=== PATIENT | female | born 1935 | race Caucasian/White ===

== ENCOUNTER → 2017-05-05 14:42 | Outpatient (CLI) | payer MEDICARE, OTHER, SELFPAY ==
[2017-05-05 15:58] LABS: Vitamin D,25 Hydroxy 28.8 ng/mL (29.95-100.01)
== END ==
PROVIDERS: Family Provider Nurse Practitioner; PCP Nurse Practitioner; Visit Provider Nurse Practitioner
DX: M85.80 Other specified disorders of bone density and structure, unspecified site (principal)
CPT/HCPCS: 36415; 82306

== ENCOUNTER → 2017-05-19 15:34 | Outpatient (CLI) | payer MEDICARE, OTHER, SELFPAY ==
[2017-05-19 17:14] LABS: Absolute Lymphocyte Count 1.41 X10^3/ul (0.83-4.51); Absolute Neutrophil Count 3.5 X10^3/uL (2.0-7.7); Basophil# 0.03 X10^3/uL; Basophil% 0.5 % (0-1); Eosinophil# 0.25 X10^3/uL; Eosinophils% 4.5 % (0-5); Hematocrit 40.5 % (37-47); Hemoglobin 12.8 g/dl (12.0-15.0); Lymphocyte # 1.41 X10^3/ul (4.0); Lymphocyte % 25.4 % (19-41); Mean Corp Hgb Conc 31.6 g/gl (32-36); Mean Corpuscular Hgb 30.2 pg (27.0-32.0); Mean Corpuscular Volume 95.5 fL (81-99); Mean Platelet Vol. 9.7 fl (6.2-12.0); Monocyte# 0.37 X10^3/uL; Monocyte% 6.7 % (0-10); Neutrophil # 3.48 X10^3/uL (2.7-7.7); Neutrophil % 62.7 % (47-70); Platelet Count 248 K/mm3 (150-450); RBC Distribution Width CV 13.3 % (11.6-14.6); RBC Distribution Width SD 46.1 fl (35.1-43.9); Red Blood Count 4.24 M/mm3 (4.2-5.4); White Blood Count 5.6 K/mm3 (4.4-11.0)
[2017-05-19 17:17] LABS: POSITIVE COUNT NO; POSITIVE DIFFERENTIAL NO; POSITIVE MORPHOLOGY NO
[2017-05-19 17:37] LABS: T4 Free Direct 1.31 ng/dL (0.76-1.46); Thyroid Stim Hormone (TSH) 2.03 uIU/mL (0.358-3.74)
[2017-05-19 17:43] LABS: BNP,B-Type NATRIURETIC PEPTIDE 254.2 pg/mL (0-100)
== END ==
PROVIDERS: Family Provider Nurse Practitioner; PCP Nurse Practitioner; Visit Provider Nurse Practitioner Family
DX: I10 Essential (primary) hypertension (principal); R06.02 Shortness of breath; R06.09 Other forms of dyspnea; I38 Endocarditis, valve unspecified; I42.8 Other cardiomyopathies; R53.83 Other fatigue
CPT/HCPCS: 36415; 83880; 84439; 84443; 85025

== ENCOUNTER → 2017-06-05 13:54 | Outpatient (CLI) | payer MEDICARE, OTHER, SELFPAY ==
--- NOTE | 2017-06-05 13:55 | ECHOD_ITS ---
Reason For Study: DYSPNEA/SOB Procedure This was a 2D Doppler, Color Flow transthoracic echocardiogram. The exam was of adequate technical quality. Exam performed in department. Left Ventricle Normal LV size. Left ventricular systolic function is normal. The estimated ejection fraction is 55 %. Septal motion consistent with IVCD. Unable to assess diastolic dysfunction. No regional wall motion abnormalities noted. Right Ventricle Normal RV size. Normal systolic function. Atria The left atrium is severely enlarged. The right atrium is severely enlarged. No doppler evidence for ASD. Mitral Valve There is severe mitral annular calcification. Extension of the mitral annular calcification onto the posterior mitral valve leaflet. Mild (1+) mitral valve insufficiency. Tricuspid Valve Normal tricuspid valve. Moderately severe (3+) tricuspid valve insufficiency. Right ventricular systolic pressure estimated to be 53 mmHg. Aortic Valve Trisinus/trileaflet aortic valve. Mild focal aortic valve thickening. Mild focal aortic valve calcification. Pulmonic Valve The pulmonic valve is not well visualized. Great Vessels Normal sized aortic root. Calcified aortic root. Pericardium/Pleural No pericardial effusion. MMode/2D Measurements & Calculations LVIDd: 4.2 cm IVSd: 0.96 cm Ao root diam: 3.1 cm LVIDs: 2.9 cm LVPWd: 1.2 cm RVDd: 3.4 cm FS: 30.3 % LAV(MOD-bp): 112.2 ml EDV(MOD-sp4): 51.5 ml SV(MOD-sp4): 28.4 ml LAV(MOD-bp) Indexed: 65.3 ml/m2 ESV(MOD-sp4): 23.1 ml LAV(MOD-sp2): 106.8 ml EF(MOD-sp4): 55.2 % LAV(MOD-sp4): 112.3 ml LA A4 area: 32.8 cm2 RA A4 area: 30.0 cm2 Doppler Measurements & Calculations MV E max jamie: 147.4 cm/sec Ao V2 max: 134.5 cm/sec LV V1 max: 102.1 cm/sec Ao max P.3 mmHg LV V1 max P.2 mmHg PA V2 max: 84.8 cm/sec TR max jamie: 354.7 cm/sec TR max P.3 mmHg Interpretation Summary Left ventricular systolic function is normal. The estimated ejection fraction is 55 %. Septal motion consistent with IVCD. The left atrium is severely enlarged. The right atrium is severely enlarged. There is severe mitral annular calcification. Extension of the mitral annular calcification onto the posterior mitral valve leaflet. Mild (1+) mitral valve insufficiency. Moderately severe (3+) tricuspid valve insufficiency. Mild focal aortic valve thickening. Mild focal aortic valve calcification. Calcified aortic root. Right ventricular systolic pressure estimated to be 53 mmHg. Unable to assess diastolic dysfunction. Ordering Physician: Binu Callejas/Joe Gunderson Referring Physician: KALIE GEORGES Performed By: Johanna Hardin RDCS
== END ==
PROVIDERS: Family Provider Nurse Practitioner; PCP Nurse Practitioner; Visit Provider Nurse Practitioner Family
DX: I38 Endocarditis, valve unspecified (principal); I42.8 Other cardiomyopathies; R53.83 Other fatigue; R06.09 Other forms of dyspnea
CPT/HCPCS: 93306

== ENCOUNTER → 2018-09-01 | Outpatient (CLI) | payer MEDICARE, OTHER, SELFPAY ==
[2018-04-13 16:14] VITALS: BMI 31.6
[2018-09-01 12:25] LABS: Absolute Lymphocyte Count 1.27 X10^3/uL (0.83-4.51); Absolute Neutrophil Count 2.9 X10^3/uL (2.0-7.7); Basophil# 0.06 X10^3/uL; Basophil% 1.2 % (0-1); Eosinophil# 0.23 X10^3/uL; Eosinophils% 4.7 % (0-5); Hematocrit 41.4 % (37-47); Hemoglobin 13.2 g/dL (12.0-15.0); Lymphocyte # 1.27 X10^3/ul (4.0); Lymphocyte % 25.8 % (19-41); Mean Corp Hgb Conc 31.9 g/dL (32-36); Mean Corpuscular Hgb 29.8 pg (27.0-32.0); Mean Corpuscular Volume 93.5 fL (81-99); Mean Platelet Vol. 9.5 fl (6.2-12.0); Monocyte# 0.41 X10^3/uL; Monocyte% 8.3 % (0-10); NRBC Flagged by Analyzer 0 % (0-5); Neutrophil # 2.94 X10^3/uL (2.7-7.7); Neutrophil % 59.8 % (47-70); Platelet Count 253 K/mm3 (150-450); RBC Distribution Width CV 13.2 % (11.6-14.6); RBC Distribution Width SD 44.9 fl (35.1-43.9); Red Blood Count 4.43 M/mm3 (4.2-5.4); White Blood Count 4.9 K/mm3 (4.4-11.0)
[2018-09-01 12:45] LABS: Vitamin D,25 Hydroxy 46.3 ng/mL (29.95-100.01)
[2018-09-01 13:00] LABS: ALB/GLOB Ratio 1.1 RATIO (0.9-2.4); AST(SGOT) 18 U/L (15-37); Alanine Aminotransfer ALT/SGPT 20 U/L (13-56); Alkaline Phosphatase 68 U/L (45-117); Anion Gap 4 (5-15); BUN 25 mg/dL (7-18); BUN/Creat Ratio 20.7 RATIO (10-20); Calcium,Total 9.5 mg/dL (8.5-10.1); Chloride 103 mmol/L (98-107); Cholesterol 184 mg/dL (200); Creatinine, Serum 1.21 mg/dL (0.55-1.02); EST Glomerular Filtration Rate 45 mL/min (>60); Est Glom Filt Rate - Afr Amer 55 mL/min (>60); Globulin 3.5 g/dL (2.2-4.2); Glucose 109 mg/dL (74-106); High Density Lipoprotein 48 mg/dL; Potassium 4.1 mmol/L (3.5-5.1); Protein, Total 7.5 g/dL (6.4-8.2); Sodium Level 136 mmol/L (136-145); Thyroid Stim Hormone (TSH) 4.08 uIU/mL (0.358-3.74); Triglycerides 150 mg/dL; Very Low Density Lipoprotein 30 mg/dL (5-40)
[2018-09-01 13:20] LABS: Microalbumin,Random Urine 21.9 mg/L (NO RANGE EST.); Microalbumin:Creatinine Ratio 106.8 mg/g CRE (<30 mg/g CRE)
== END | disposition home or self-care (01) ==
LOC: MTLAB 09:42
PROVIDERS: Family Provider Nurse Practitioner; PCP Nurse Practitioner; Referring Provider Nurse Practitioner; Visit Provider Nurse Practitioner
DX: E03.9 Hypothyroidism, unspecified (principal); E55.9 Vitamin D deficiency, unspecified; I10 Essential (primary) hypertension
CPT/HCPCS: 36415; 80053; 80061; 82043; 82306; 82570; 84443; 85025

== ENCOUNTER → 2019-01-08 10:46 | Outpatient (CLI) | payer MEDICARE, OTHER, SELFPAY ==
[2018-10-12 13:01] VITALS: BMI 31.6
[2019-01-08 12:20] LABS: Absolute Lymphocyte Count 1.18 X10^3/uL (0.83-4.51); Absolute Neutrophil Count 3.1 X10^3/uL (2.0-7.7); Basophil# 0.03 X10^3/uL; Basophil% 0.6 % (0-1); Eosinophil# 0.28 X10^3/uL; Eosinophils% 5.5 % (0-5); Hematocrit 41.3 % (37-47); Hemoglobin 13.1 g/dL (12.0-15.0); Lymphocyte # 1.18 X10^3/ul (4.0); Lymphocyte % 23.3 % (19-41); Mean Corp Hgb Conc 31.7 g/dL (32-36); Mean Corpuscular Hgb 30.2 pg (27.0-32.0); Mean Corpuscular Volume 95.2 fL (81-99); Mean Platelet Vol. 9.6 fl (6.2-12.0); Monocyte# 0.42 X10^3/uL; Monocyte% 8.3 % (0-10); NRBC Flagged by Analyzer 0 % (0-5); Neutrophil # 3.14 X10^3/uL (2.7-7.7); Neutrophil % 62.1 % (47-70); Platelet Count 249 K/mm3 (150-450); RBC Distribution Width CV 13.4 % (11.6-14.6); RBC Distribution Width SD 47.5 fl (35.1-43.9); Red Blood Count 4.34 M/mm3 (4.2-5.4); White Blood Count 5.1 K/mm3 (4.4-11.0)
[2019-01-08 13:01] LABS: ALB/GLOB Ratio 1.1 RATIO (0.9-2.4); AST(SGOT) 17 U/L (15-37); Alanine Aminotransfer ALT/SGPT 21 U/L (13-56); Albumin, Serum 3.9 g/dL (3.2-5.0); Alkaline Phosphatase 63 U/L (45-117); Anion Gap 8 (5-15); BUN 25 mg/dL (7-18); BUN/Creat Ratio 21.6 RATIO (10-20); Calcium,Total 9.6 mg/dL (8.5-10.1); Chloride 102 mmol/L (98-107); Creatinine, Serum 1.16 mg/dL (0.55-1.02); EST Glomerular Filtration Rate 47 mL/min (>60); Est Glom Filt Rate - Afr Amer 57 mL/min (>60); Globulin 3.4 g/dL (2.2-4.2); Glucose 101 mg/dL (74-106); Potassium 4.5 mmol/L (3.5-5.1); Protein, Total 7.3 g/dL (6.4-8.2); Sodium Level 137 mmol/L (136-145); Thyroid Stim Hormone (TSH) 5.35 uIU/mL (0.358-3.74)
== END ==
PROVIDERS: Family Provider Nurse Practitioner; PCP Nurse Practitioner; Referring Provider Nurse Practitioner; Visit Provider Nurse Practitioner
DX: E03.9 Hypothyroidism, unspecified (principal); I10 Essential (primary) hypertension
CPT/HCPCS: 36415; 80053; 84443; 85025

== ENCOUNTER → 2019-04-28 | Outpatient (CLI) | payer MEDICARE, OTHER, SELFPAY ==
[2019-04-19 13:57] VITALS: BMI 31.8
--- NOTE | 2019-04-28 13:50 | ECHOD_ITS ---
Reason For Study: Murmur Procedure This was a 2D Doppler, Color Flow transthoracic echocardiogram. The exam was of adequate technical quality. Exam performed in department. Left Ventricle Normal LV size. Mild concentric left ventricular hypertrophy. Left ventricular systolic function is normal. The estimated ejection fraction is 60 %. Unable to assess diastolic dysfunction. No regional wall motion abnormalities noted. Right Ventricle Normal RV size. Normal systolic function. Atria The left atrium is severely enlarged. The right atrium is severely enlarged. No doppler evidence for ASD. Mitral Valve There is severe mitral annular calcification. Extension of the mitral annular calcification onto the mitral valve leaflets. Mild (1+) mitral valve insufficiency. Tricuspid Valve Normal tricuspid valve. Moderate (2+) tricuspid valve insufficiency. Right ventricular systolic pressure estimated to be 33 mmHg. Aortic Valve Trisinus/trileaflet aortic valve. Mild diffuse aortic valve thickening. Mild focal aortic valve calcification. Pulmonic Valve The pulmonic valve is not well visualized. Trivial pulmonic valve insufficiency. Great Vessels Normal sized aortic root. Pericardium/Pleural No pericardial effusion. MMode/2D Measurements & Calculations LVIDd: 4.5 cm IVSd: 1.3 cm Ao root diam: 3.3 cm LVIDs: 3.2 cm LVPWd: 1.3 cm RVDd: 3.7 cm FS: 29.1 % LAV(MOD-bp): 133.7 ml LA A4 area: 38.1 cm2 LA dimension(2D): 5.3 cm LAV(MOD-bp) Indexed: 78.7 ml/m2 LAV(MOD-sp2): 108.9 ml LAV(MOD-sp4): 160.0 ml RA A4 area: 31.0 cm2 Doppler Measurements & Calculations MV E max jamie: 116.0 cm/sec Ao V2 max: 127.7 cm/sec LV V1 max: 89.6 cm/sec Ao max P.6 mmHg LV V1 max P.2 mmHg PA V2 max: 71.4 cm/sec TR max jamie: 271.9 cm/sec TR max P.7 mmHg Interpretation Summary Left ventricular systolic function is normal. The estimated ejection fraction is 60 %. Mild concentric left ventricular hypertrophy. The left atrium is severely enlarged. The right atrium is severely enlarged. There is severe mitral annular calcification. Extension of the mitral annular calcification onto the mitral valve leaflets. Mild (1+) mitral valve insufficiency. Moderate (2+) tricuspid valve insufficiency. Mild diffuse aortic valve thickening. Mild focal aortic valve calcification. Trivial pulmonic valve insufficiency. Right ventricular systolic pressure estimated to be 33 mmHg. Unable to assess diastolic dysfunction. Ordering Physician: Joe Gunderson Referring Physician: Yarely Pride Performed By: Morena Whatley RDCS
== END | disposition home or self-care (01) ==
LOC: CVS 13:50
PROVIDERS: PCP Nurse Practitioner; Referring Provider Internal Medicine Cardiovascular Disease; Visit Provider Internal Medicine Cardiovascular Disease
DX: I38 Endocarditis, valve unspecified (principal); R01.1 Cardiac murmur, unspecified
CPT/HCPCS: 93306

== ENCOUNTER → 2019-10-14 | Outpatient (CLI) | payer MEDICARE, OTHER, SELFPAY ==
[2019-04-19 13:57] VITALS: BMI 31.8
[2019-10-14 12:29] LABS: Absolute Neutrophil Count 3.4 X10^3/uL (2.0-7.7); Basophil# 0.03 X10^3/uL; Basophil% 0.6 % (0-1); Eosinophils% 3.7 % (0-5); Hematocrit 41.1 % (37-47); Lymphocyte % 24.3 % (19-41); Mean Corp Hgb Conc 31.6 g/dL (32-36); Mean Corpuscular Hgb 30.2 pg (27.0-32.0); Mean Corpuscular Volume 95.6 fL (81-99); Mean Platelet Vol. 9.5 fl (6.2-12.0); Monocyte# 0.46 X10^3/uL; Monocyte% 8.6 % (0-10); NRBC Flagged by Analyzer 0 % (0-5); Neutrophil # 3.35 X10^3/uL (2.7-7.7); Neutrophil % 62.6 % (47-70); Platelet Count 242 K/mm3 (150-450); RBC Distribution Width CV 13.1 % (11.6-14.6); RBC Distribution Width SD 45.2 fl (35.1-43.9); White Blood Count 5.4 K/mm3 (4.4-11.0)
[2019-10-14 12:59] LABS: ALB/GLOB Ratio 1.4 RATIO (0.9-2.4); AST(SGOT) 15 U/L (15-37); Alanine Aminotransfer ALT/SGPT 21 U/L (13-56); Alkaline Phosphatase 60 U/L (45-117); Anion Gap 5 (5-15); BUN 18 mg/dL (7-18); BUN/Creat Ratio 16.2 RATIO (10-20); Calcium,Total 9.2 mg/dL (8.5-10.1); Chloride 104 mmol/L (98-107); Cholesterol 193 mg/dL (200); Creatinine, Serum 1.11 mg/dL (0.55-1.02); EST Glomerular Filtration Rate 50 mL/min (>60); Est Glom Filt Rate - Afr Amer 60 mL/min (>60); Globulin 2.8 g/dL (2.2-4.2); Glucose 110 mg/dL (74-106); High Density Lipoprotein 45 mg/dL; Potassium 4.4 mmol/L (3.5-5.1); Protein, Total 6.8 g/dL (6.4-8.2); Sodium Level 139 mmol/L (136-145); Triglycerides 198 mg/dL; Very Low Density Lipoprotein 40 mg/dL (5-40)
== END | disposition home or self-care (01) ==
LOC: MTLAB 10:53
PROVIDERS: PCP Nurse Practitioner; Referring Provider Nurse Practitioner; Visit Provider Nurse Practitioner
DX: E03.9 Hypothyroidism, unspecified (principal); I10 Essential (primary) hypertension
CPT/HCPCS: 36415; 80053; 80061; 84443; 85025

== ENCOUNTER → 2020-09-05 09:40 | Outpatient (CLI) | payer MEDICARE, OTHER, SELFPAY ==
[2020-02-28 10:05] VITALS: BMI 30.8
[2020-09-05 12:05] LABS: Absolute Lymphocyte Count 1.34 X10^3/uL (0.83-4.51); Absolute Neutrophil Count 3.3 X10^3/uL (2.0-7.7); Basophil# 0.06 X10^3/uL; Basophil% 1.1 % (0-1); Eosinophil# 0.27 X10^3/uL; Eosinophils% 4.9 % (0-5); Hemoglobin 13.4 g/dL (12.0-15.0); Lymphocyte # 1.34 X10^3/ul (0.83-4.51); Lymphocyte % 24.5 % (19-41); Mean Corp Hgb Conc 31.2 g/dL (32-36); Mean Corpuscular Hgb 29.8 pg (27.0-32.0); Mean Corpuscular Volume 95.8 fL (81-99); Mean Platelet Vol. 9.5 fl (6.2-12.0); Monocyte# 0.49 X10^3/uL; NRBC Flagged by Analyzer 0 % (0-5); Neutrophil # 3.29 X10^3/uL (2.7-7.7); Neutrophil % 60.3 % (47-70); Platelet Count 269 K/mm3 (150-450); RBC Distribution Width CV 13.1 % (11.6-14.6); RBC Distribution Width SD 45.6 fl (35.1-43.9); Red Blood Count 4.49 M/mm3 (4.2-5.4); White Blood Count 5.5 K/mm3 (4.4-11.0)
[2020-09-05 12:28] LABS: ALB/GLOB Ratio 1.1 RATIO (0.9-2.4); AST(SGOT) 16 U/L (15-37); Alanine Aminotransfer ALT/SGPT 23 U/L (13-56); Albumin, Serum 3.8 g/dL (3.2-5.0); Alkaline Phosphatase 66 U/L (45-117); Anion Gap 4 (5-15); BUN 23 mg/dL (7-18); Calcium,Total 9.5 mg/dL (8.5-10.1); Chloride 103 mmol/L (98-107); Cholesterol 192 mg/dL (200); Creatinine, Serum 1.15 mg/dL (0.55-1.02); EST Glomerular Filtration Rate 48 mL/min (>60); Est Glom Filt Rate - Afr Amer 58 mL/min (>60); Globulin 3.6 g/dL (2.2-4.2); Glucose 115 mg/dL (74-106); High Density Lipoprotein 48 mg/dL; Potassium 4.2 mmol/L (3.5-5.1); Protein, Total 7.4 g/dL (6.4-8.2); Sodium Level 136 mmol/L (136-145); Thyroid Stim Hormone (TSH) 4.06 uIU/mL (0.358-3.74); Triglycerides 181 mg/dL; Very Low Density Lipoprotein 36 mg/dL (5-40)
== END ==
PROVIDERS: PCP Nurse Practitioner; Referring Provider Nurse Practitioner; Visit Provider Nurse Practitioner
DX: I10 Essential (primary) hypertension (principal)
CPT/HCPCS: 36415; 80053; 80061; 82043; 82570; 84443; 85025

== ENCOUNTER → 2020-09-06 14:18 | Outpatient (CLI) | payer MEDICARE, OTHER, SELFPAY ==
[2020-02-28 10:05] VITALS: BMI 30.8
[2020-09-06 17:55] LABS: Microalbumin,Random Urine 6.2 mg/L (NO RANGE EST.); Microalbumin:Creatinine Ratio 24.6 mg/g CRE (<30 mg/g CRE)
== END ==
PROVIDERS: PCP Nurse Practitioner; Referring Provider Nurse Practitioner; Visit Provider Nurse Practitioner
DX: I10 Essential (primary) hypertension (principal)
CPT/HCPCS: 82043; 82570

== ENCOUNTER → 2020-10-25 11:04 | Outpatient (CLI) | payer MEDICARE, OTHER, SELFPAY ==
[2020-10-25 12:40] LABS: Albumin, Serum 3.5 g/dL (3.2-5.0); BUN 18 mg/dL (7-18); BUN/Creat Ratio 19.1 RATIO (10-20); Calcium,Total 9.5 mg/dL (8.5-10.1); Chloride 105 mmol/L (98-107); Creatinine, Serum 0.94 mg/dL (0.55-1.02); EST Glomerular Filtration Rate 60 mL/min (>60); Est Glom Filt Rate - Afr Amer 73 mL/min (>60); Glucose 101 mg/dL (74-106); Phosphorus 3.3 mg/dL (2.5-4.9); Potassium 4.6 mmol/L (3.5-5.1); Sodium Level 138 mmol/L (136-145)
== END ==
PROVIDERS: PCP Nurse Practitioner; Referring Provider Nurse Practitioner; Visit Provider Nurse Practitioner
DX: N18.31 Chronic kidney disease, stage 3a (principal); R94.6 Abnormal results of thyroid function studies
CPT/HCPCS: 36415; 80069; 84443

== ENCOUNTER 2021-12-16 10:25 | Emergency (ER) | payer MEDICARE, OTHER, SELFPAY ==
[2021-12-16 10:26] VITALS: BP 173/74; PULSE 82; RESP 18; TEMP 36.8; O2SAT 97; BMI 30.3
--- NOTE | 2021-12-16 10:47 | EKG12_ITS ---
Test Reason : DIZZY Blood Pressure : / mmHG Vent. Rate : 073 BPM Atrial Rate : 000 BPM P-R Int : 000 ms QRS Dur : 134 ms QT Int : 422 ms P-R-T Axes : 000 -63 025 degrees QTc Int : 464 ms Atrial fibrillation Left axis deviation Non-specific intra-ventricular conduction block Inferior infarct , age undetermined Cannot rule out Anteroseptal infarct , age undetermined Abnormal ECG Confirmed by MARTHA SCHAEFER, MARY KATE ([id number]), make up editor RICK SUAREZ ([id number]) on 12/18/2021 1:02:00 PM Referred By: Confirmed By:MARY KATE THOMAS MD
[2021-12-16 11:00] LABS: Absolute Lymphocyte Count 1.64 X10^3/uL (0.83-4.51); Absolute Neutrophil Count 4.1 X10^3/uL (2.0-7.7); Basophil# 0.06 X10^3/uL; Basophil% 0.9 % (0-1); Eosinophil# 0.31 X10^3/uL; Eosinophils% 4.7 % (0-5); Hematocrit 41.9 % (37-47); Hemoglobin 13.4 g/dL (12.0-15.0); Lymphocyte # 1.64 X10^3/ul (0.83-4.51); Mean Corpuscular Hgb 29.8 pg (27.0-32.0); Mean Corpuscular Volume 93.3 fL (81-99); Mean Platelet Vol. 9.5 fl (6.2-12.0); Monocyte% 6.1 % (0-10); NRBC Flagged by Analyzer 0 % (0-5); Neutrophil # 4.12 X10^3/uL (2.7-7.7); Neutrophil % 62.8 % (47-70); Platelet Count 255 K/mm3 (150-450); RBC Distribution Width CV 13.5 % (11.6-14.6); Red Blood Count 4.49 M/mm3 (4.2-5.4); White Blood Count 6.6 K/mm3 (4.4-11.0)
[2021-12-16 11:06] LABS: Bacteria 0 SEEN /hpf (None Seen); Color, Urine Yellow (Yellow); Glucose, Dipstick Normal (Normal); Ketone-Dipstick Negative (Negative); Leukocyte Esterase-Dipstick 25 /ul (Negative); Mucous, Urine 0 SEEN /hpf (<or=2+); Nitrite-Dipstick Negative (Negative); Occult Blood-Urine 10 /ul (Negative); Protein-Dipstick 30 mg/dl (Negative); Red Blood Cells-Urine 0 SEEN /hpf (0-5); Urine Bilirubin Dipstick Negative (Negative); Urine Clarity Clear (Clear); Urine Urobilinogen Normal (Normal)
[2021-12-16 11:12] LABS: Anion Gap 4 (5-15); BUN 18 mg/dL (7-18); Calcium,Total 9.5 mg/dL (8.5-10.1); Chloride 107 mmol/L (98-107); EST Glomerular Filtration Rate 56 mL/min (>60); Est Glom Filt Rate - Afr Amer 67 mL/min (>60); Estimated Creatinine Clearance 28.47 ml/min; Glucose 174 mg/dL (74-106); Potassium 4.5 mmol/L (3.5-5.1); Sodium Level 140 mmol/L (136-145)
[2021-12-16 11:13] LABS: Squamous Epithelial Cells - UA 0-5 SEEN /hpf (5-10); White Blood Cells 0-5 SEEN /hpf (0-5)
--- NOTE | 2021-12-16 11:25 | EX.ED.DYSGE1 ---
HPI History of Present Illness Chief Complaint: Dizziness Informant: patient Onset/Context/Timing Onset: Today Context: Gradual Onset Timing: Continuous Quality: Spinning, unsteady Location: Generalized Worsened by: Movement Relieved by: Nothing Narrative Narrative: Patient presents with dizziness that began today. Patient states he woke up today and felt dizzy. Patient states it feels like there is spinning sensation. Patient states she feels unsteady when she walks. Patient states it is worse with walking and movement. Patient states nothing seems to help with it. Patient denies any fevers or chills. Patient denies any headaches. Patient admits to some nausea but denies any vomiting. Patient denies any chest pain. Patient denies any visual changes. [facility] Medical History Atrial enlargement, bilateral Atrial fibrillation Bundle branch block Carpal tunnel syndrome Cataract Diastolic dysfunction Dyspnea on exertion Essential hypertension Essential tremor Exertional chest pain Fatigue Fibromyalgia Hyperlipidemia Hypertension Hypothyroidism Irritable bowel syndrome Left bundle branch block Nonrheumatic mitral (valve) insufficiency Nonrheumatic mitral (valve) stenosis Osteoarthritis Persistent atrial fibrillation Restless leg syndrome Sjogren's disease Tubal ligation evaluation Valvular heart disease Home Medications Lactobacillus acidophilus 2 billion cell tablet 1 ea PO DAILY 02/26/13 [History Last Taken Unknown] aspirin 81 mg chewable tablet 81 mg PO DAILY@0800 02/26/13 [History Last Taken 04/09/13] biotin 1 mg capsule 0.5 mg PO DAILY 02/26/13 [History Last Taken Unknown] levothyroxine 75 mcg tablet 75 mcg PO SUMOTUTHFRSA 02/26/13 [History Last Taken 04/09/13] acetaminophen 500 mg tablet (Tylenol Extra Strength) 500 mg PO Q6H PRN Pain 05/19/17 [History Last Taken Unknown] cranberry 400 mg capsule 400 mg PO DAILY 04/13/18 [History Last Taken Unknown] Handicapped Placard #1 ea 01/12/19 [Rx Last Taken Unknown] cholecalciferol (vitamin D3) 50 mcg (2,000 unit) tablet 1,000 unit PO DAILY 04/19/19 [History Last Taken Unknown] apixaban 5 mg tablet (Eliquis) 5 mg PO BID #180 tabs 06/18/21 [Rx Last Taken Unknown] lisinopril 10 mg tablet 10 mg PO DAILY #90 tabs 09/05/21 [Rx Last Taken Unknown] propranolol 120 mg capsule,extended release 24 hr 120 mg PO QDAY #90 caps 10/24/21 [Rx Last Taken Unknown] furosemide 20 mg tablet 40 mg PO DAILY 12/16/21 [History Last Taken Unknown] levothyroxine 150 mcg tablet 150 mcg PO WE 12/16/21 [History Last Taken Unknown] meclizine 25 mg tablet 25 mg PO Q8H PRN PRN Dizziness #20 tabs 12/16/21 [Rx Last Taken Unknown] multivitamin 1 tab PO DAILY 12/16/21 [History Last Taken Unknown] Allergy/AdvReac Type Severity Reaction Status Date / Time No Known Allergies Allergy Verified 12/16/21 10:26 Family History (Reviewed 09/05/21 @ 13:09 by Binu Callejas INFORMATION SYSTEMS DIRECTOR, INFORMATION SYSTEMS DIRECTOR-C) Daughter Thyroid disorder Son Hypertension Son Spine degeneration Son Hypertension Tremors of nervous system Sister Arthritis Sister Cancer, Onset Age: 50 cervical Brother Arthritis Mother Hypertension CVA (cerebral vascular accident) Father Hx of syphilis Grandfather No problems noted. Grandmother , unknown causes No problems noted. Surgical History H/O tubal ligation History of arthroplasty History of bilateral cataract extraction History of carpal tunnel release Hx of appendectomy Social History Smoking Status: Never smoker alcohol intake: never substance use type: does not use caffeine: No what type of physical activity do you participate in: none seatbelt use: always do you feel safe at home: Yes ROS ROS ED Constitutional Constitutional ED: Denies chills or fever(s) Eyes Eyes: Denies blurry vision or change in vision ENT ENT ED: Denies rhinorrhea or sore throat Cardiovascular Cardiovascular: Denies chest pain or palpitations Respiratory/Chest Respiratory/Chest: Reports dyspnea; Denies cough Gastrointestinal Gastrointestinal: Reports nausea; Denies vomiting Genitourinary Genitourinary ED: Denies dysuria or hematuria Musculoskeletal Musculoskeletal: Denies back pain or neck pain Integumentary Denies abscess or rash Neurologic Neurologic: Reports weakness; Denies headache(s) Allergic/Immunologic Allergic/Immunologic ED: Denies mouth swelling or urticaria EXAM Physical Exam Const Vital Signs: 12/16/21 10:26 12/16/21 10:40 12/16/21 11:30 Temperature 98.3 F Temperature Source Oral Pulse Rate 82 77 Respiratory Rate 18 Respiratory Effort Normal Non-Labored Respiratory Pattern Normal Blood Pressure 173/74 H 100/75 Blood Pressure Mean 107 83 Pulse Ox 97 Oxygen Delivery Method Room Air 12/16/21 12:00 Temperature Temperature Source Pulse Rate 89 Respiratory Rate 16 Respiratory Effort Respiratory Pattern Blood Pressure 133/87 H Blood Pressure Mean 102 Pulse Ox 97 Oxygen Delivery Method Room Air Positive well nourished and well developed General Appearance ED: well developed HEENT Reports moist mucous membranes Eyes PERRL and EOMs intact bilaterally Eyes Narrative: There is no nystagmus with lateral gaze. Patient states that this did make her slightly dizzy. Neck supple and no JVD Resp normal respiratory effort and clear to auscultation bilaterally Cardio regular rate, regular rhythm and no murmurs GI normal to inspection, nondistended, normoactive bowel sounds and non-tender Palpation: soft Extremity normal to inspection General Extremety ED: Negative for edema or tenderness General Extremity: Negative for edema Neuro oriented x3, CN's II-XII intact bilaterally and no sensory deficits noted Sensorium / Orientation: alert Motor Exam: strength 5/5 throughout Psych mental status grossly normal Skin no rashes or lesions noted MDM MDM MDM Narrative Medical decision making narrative: Patient was given a dose of meclizine here. EKG was obtained. On my interpretation, it showed atrial fibrillation with a rate of 73. There is a left bundle branch block pattern noted. There is left axis deviation at -63. QTc interval was within normal limits. This was unchanged compared to previous EKG. CT scan of the brain was obtained. There is no acute intracranial abnormality. This was interpreted by the radiologist and reviewed by myself. CBC was within normal limits. Basic metabolic profile was essentially within normal limits. Urinalysis does not show any evidence of urinary tract infection or hematuria. Patient is feeling better on reevaluation. Patient was able to ambulate to the bathroom without difficulty. Patient states her dizziness is improved but she still feels somewhat weak. Patient's blood pressure is improved. Patient feels well enough to go home. Patient was given a prescription for meclizine. Patient was instructed to follow-up with her primary care physician in 3 to 5 days. Patient understood and was agreeable with the plan. All questions were answered. Lab Data Attestation: I reviewed the patient's lab results. Labs: Laboratory Results - last 24 hr 12/16/21 12/16/21 12/16/21 10:34 10:34 11:00 WBC 6.6 RBC 4.49 Hgb 13.4 Hct 41.9 MCV 93.3 MCH 29.8 MCHC 32.0 RDW Std Deviation 46.0 H RDW Coeff of Nicci 13.5 Plt Count 255 MPV 9.5 Immature Gran % (Auto) 0.500 Neut % (Auto) 62.8 Lymph % (Auto) 25.0 Terrell % (Auto) 6.1 Eos % (Auto) 4.7 Baso % (Auto) 0.9 Absolute Neuts (auto) 4.1 Absolute Lymphs (auto) 1.64 Nucleated RBC % 0 Sodium 140 Potassium 4.5 Chloride 107 Carbon Dioxide 29.0 Anion Gap 4 L BUN 18 Creatinine 1.00 Estim Creat Clear Calc 28.47 Est GFR (MDRD) Af Amer 67 Est GFR (MDRD) Non-Af 56 L BUN/Creatinine Ratio 18.0 Glucose 174 H Calcium 9.5 Urine Color Yellow Urine Clarity Clear Urine pH 6.0 Ur Specific [place] 1.010 Urine Protein 30 H Urine Glucose (UA) Normal Urine Ketones Negative Urine Occult Blood 10 H Urine Nitrite Negative Urine Bilirubin Negative Urine Urobilinogen Normal Ur Leukocyte Esterase 25 H Urine RBC 0 SEEN Urine WBC 0-5 SEEN Ur Squamous Epith Cells 0-5 SEEN Urine Bacteria 0 SEEN Urine Mucus 0 SEEN Radiography Diagnostic Testing: Clinical Impression(s) from Imaging Studies Brain CT 12/16/21 11:27 IMPRESSION: 1. No acute intracranial abnormality. 2. Senescent changes. Electronically Signed: Jairo Alvarado MD at 12:21 EDT , EKG Initial EKG: Attestation: I personally reviewed and interpreted this EKG as follows: Interpretation: Atrial Fibrillation (73), LBBB and Non-Specific ST Changes Prior EKG tracings: available for review Prior: Unchanged (04/09/2013) Discharge Plan Triage Chief Complaint: Dizziness ED Provider: Antoine Villeda Dx/Rx/DC Orders Clinical Impression: Vertigo, Essential hypertension, Persistent atrial fibrillation Instructions: ED Vertigo, Unspecified Prescriptions: New meclizine 25 mg tablet 25 mg PO Q8H PRN PRN (Reason: Dizziness) Qty: 20 0RF No Action acetaminophen [Tylenol Extra Strength] 500 mg tablet 500 mg PO Q6H PRN (Reason: Pain) cranberry 400 mg capsule 400 mg PO DAILY cholecalciferol (vitamin D3) 50 mcg (2,000 unit) tablet 1,000 unit PO DAILY (DME) Handicapped Placard Qty: 1 0RF Rx Instructions: As directed; Good from 01/12/2019-01/13/2024 lisinopril 10 mg tablet 10 mg PO DAILY Qty: 90 4RF levothyroxine 75 MCG tablet 75 mcg PO SUMOTUTHFRSA aspirin 81 MG tablet,chewable 81 mg PO DAILY@0800 biotin 1 MG capsule 0.5 mg PO DAILY Lactobacillus acidophilus 1 EACH tablet 1 ea PO DAILY multivitamin Tablet 1 tab PO DAILY levothyroxine 150 mcg Tablet 150 mcg PO WE furosemide 20 mg tablet 40 mg PO DAILY Rx Instructions: May increase PRN for increased shortness of breath; Eliquis 5 mg tablet 5 mg PO BID Qty: 180 3RF propranolol 120 mg capsule,extended release 24hr 120 mg PO QDAY Qty: 90 4RF Primary Care Provider: Nusrat Ballesteros Referrals: Nusrat Ballesteros, INFORMATION SYSTEMS DIRECTOR-C [Primary Care Provider] - 3-5 Days Disposition Disposition: Home, Self Care
--- NOTE | 2021-12-16 11:27 | CT_ITS ---
EXAM: CT HEAD WITHOUT INTRAVENOUS CONTRAST CLINICAL INDICATION: Weakness TECHNIQUE: Multiple axial images were obtained of the head without intravenous contrast. This CT exam was performed using one or more of the following dose reduction techniques: automated exposure control, adjustment of the mA and/or kV according to patient size, and/or use of iterative reconstruction technique. This report was created using [employer] report generation technology. COMPARISON: None. FINDINGS: BRAIN AND EXTRA-AXIAL SPACES: Areas of diminished white matter density noted within both cerebral hemispheres suggestive of chronic microvascular change. Prominence of the cortical sulci and ventricles related to volume loss change. No intra- or extra-axial hemorrhage. No evidence of acute infarct. No intracranial mass or mass effect. There is preservation of the reagan/white matter interface. Posterior fossa structures are unremarkable. Basal cisterns are patent. BONES/JOINTS: Normal. No discrete lytic or blastic abnormalities. SINUSES: Unremarkable as visualized. No acute sinusitis. MASTOID AIR CELLS: Normal. Clear. ORBITS: Visualized globes, extraocular muscles, optic nerves and retrobulbar fat appear unremarkable. CT/Brain/Head without Contrast IMPRESSION: 1. No acute intracranial abnormality. 2. Senescent changes. Electronically Signed: Jairo Alvarado MD at 12:21 EDT ,
[2021-12-16 11:30] VITALS: BP 100/75; PULSE 77
[2021-12-16 12:00] VITALS: BP 133/87; PULSE 89; RESP 16; O2SAT 97
[2021-12-16] MEDS: Meclizine HCl 25 MG Tablet PO (12:12)
[2021-12-16 13:26] VITALS: BP 122/76; PULSE 81; RESP 18
== END 2021-12-16 13:36 | disposition home or self-care (01) ==
PROVIDERS: Emergency Provider Emergency Medicine; PCP Nurse Practitioner Family; Visit Provider Emergency Medicine
DX: R42 Dizziness and giddiness (principal); I48.19 Other persistent atrial fibrillation; R11.0 Nausea; E78.5 Hyperlipidemia, unspecified; I44.7 Left bundle-branch block, unspecified; I10 Essential (primary) hypertension; R06.00 Dyspnea, unspecified
CPT/HCPCS: 70450; 80048; 81001; 85025; 93005; 99285; Q9967; A4216

== ENCOUNTER 2022-03-19 13:19 | Emergency (ER) | payer MEDICARE, OTHER, SELFPAY ==
[2022-03-19 13:23] VITALS: BP 199/117; PULSE 82; RESP 18; TEMP 37.2; O2SAT 98; BMI 29.3
--- NOTE | 2022-03-19 13:42 | EKG12_ITS ---
Test Reason : CP Blood Pressure : / mmHG Vent. Rate : 088 BPM Atrial Rate : 000 BPM P-R Int : 000 ms QRS Dur : 144 ms QT Int : 384 ms P-R-T Axes : 000 -62 102 degrees QTc Int : 464 ms Atrial fibrillation Left axis deviation Left bundle branch block Abnormal ECG Confirmed by BRIE SCHAEFER, ALLEN ([id number]), video editor RICK SUAREZ ([id number]) on 03/21/2022 10:16:01 AM Referred By: Confirmed By:ALLEN BAIRD MD
--- NOTE | 2022-03-19 13:42 | RAD_ITS ---
STUDY: X-RAY CHEST REASON FOR EXAM: Female, 86 years old. Chest pain TECHNIQUE: Single AP portable view of the chest. COMPARISON: Comparison is made with prior study 02/11/2013. FINDINGS: EKG electrodes are seen. The lungs are clear and expanded. There is no demonstrated pleural abnormality. Moderate degree of cardiomegaly. Pericardial effusion should be ruled out. Calcification of the mitral valve annulus. Normal mediastinum and minna. Normal visualized pulmonary arteries. Normal visualized aortic arch and descending thoracic aorta. Normal visualized thoracic spine. Normal visualized ribs, clavicles, and shoulders. There is no demonstrated abnormality of the visualized soft tissue structures of the upper abdomen. RAD/Chest 1 View (Portable) IMPRESSION: Moderate degree of cardiomegaly. Pericardial effusion should BE ruled out. Calcification of the mitral valve annulus. The lungs are clear. Electronically Signed: Mauricio Felix MD at 14:36 EST ,
--- NOTE | 2022-03-19 13:43 | ED.VIS.CHEST ---
HPI History of Present Illness Chief Complaint: Chest Pain Informant: patient Onset/Context/Timing Onset: Yesterday Narrative Narrative: Patient presents secondary to chest pain. She has a history of atrial fibrillation and hypertension. She states her blood pressure has been consistently elevated since November. She saw cardiology in early November and her blood pressure was mildly elevated at that time. She has not contacted them again to let them know that it is still been running high. She is currently on 10 mg of lisinopril in the morning and 120 mg of extended release propranolol in the evening. Patient states yesterday she had a brief episode lasting a few minutes of burning pain in her chest. Today she had an episode lasting 20 to 30 minutes. She also admits to a history of anxiety and is not on any anxiety medication. [facility] Medical History Atrial enlargement, bilateral Atrial fibrillation Bundle branch block Carpal tunnel syndrome Cataract Diastolic dysfunction Dyspnea on exertion Essential hypertension Essential tremor Exertional chest pain Fatigue Fibromyalgia Hyperlipidemia Hypertension Hypothyroidism Irritable bowel syndrome Left bundle branch block Nonrheumatic mitral (valve) insufficiency Nonrheumatic mitral (valve) stenosis Osteoarthritis Persistent atrial fibrillation Restless leg syndrome Sjogren's disease Tubal ligation evaluation Valvular heart disease Home Medications Lactobacillus acidophilus 2 billion cell tablet 1 ea PO DAILY 02/26/13 [History Last Taken Unknown] aspirin 81 mg chewable tablet 81 mg PO DAILY@0800 02/26/13 [History Last Taken 04/09/13] biotin 1 mg capsule 0.5 mg PO WE 02/26/13 [History Last Taken Unknown] levothyroxine 75 mcg tablet 75 mcg PO SUMOTUTHFRSA 02/26/13 [History Last Taken 04/09/13] acetaminophen 500 mg tablet (Tylenol Extra Strength) 500 mg PO Q6H PRN Pain 05/19/17 [History Last Taken Unknown] cranberry 400 mg capsule 400 mg PO DAILY 04/13/18 [History Last Taken Unknown] Handicapped Placard #1 ea 01/12/19 [Rx Last Taken Unknown] cholecalciferol (vitamin D3) 50 mcg (2,000 unit) tablet 1,000 unit PO DAILY 04/19/19 [History Last Taken Unknown] apixaban 5 mg tablet (Eliquis) 5 mg PO BID #180 tabs 06/18/21 [Rx Last Taken Unknown] lisinopril 10 mg tablet 10 mg PO DAILY #90 tabs 09/05/21 [Rx Last Taken Unknown] propranolol 120 mg capsule,extended release 24 hr 120 mg PO QDAY #90 caps 10/24/21 [Rx Last Taken Unknown] furosemide 20 mg tablet 20 mg PO DAILY 12/16/21 [History Last Taken Unknown] levothyroxine 150 mcg tablet 150 mcg PO WE 12/16/21 [History Last Taken Unknown] multivitamin 1 tab PO DAILY 12/16/21 [History Last Taken Unknown] lisinopril 20 mg tablet 20 mg PO BID #60 tabs 03/19/22 [Rx Last Taken Unknown] Allergy/AdvReac Type Severity Reaction Status Date / Time No Known Allergies Allergy Verified 03/19/22 13:22 Family History Daughter Thyroid disorder Son Hypertension Son Spine degeneration Son Hypertension Tremors of nervous system Sister Arthritis Sister Cancer, Onset Age: 50 cervical Brother Arthritis Mother Hypertension CVA (cerebral vascular accident) Father Hx of syphilis Grandfather No problems noted. Grandmother , unknown causes No problems noted. Surgical History H/O tubal ligation History of arthroplasty History of bilateral cataract extraction History of carpal tunnel release Hx of appendectomy Social History Smoking Status: Never smoker alcohol intake: never substance use type: does not use caffeine: No what type of physical activity do you participate in: none seatbelt use: always do you feel safe at home: Yes ROS ROS ED Constitutional Constitutional ED: Denies chills or fever(s) Eyes Eyes: Denies change in vision or discharge from eye(s) ENT ENT ED: Denies discharge from eye(s), rhinorrhea or sore throat Cardiovascular Cardiovascular: Reports chest pain; Denies palpitations Respiratory/Chest Respiratory/Chest: Denies cough or dyspnea Gastrointestinal Gastrointestinal: Denies abdominal pain, nausea or vomiting Genitourinary Genitourinary ED: Denies dysuria Musculoskeletal Musculoskeletal: Denies back pain or extremity pain Integumentary Denies Abrasions or rash Neurologic Neurologic: Denies headache(s) or weakness Psychiatric Psychiatric: Denies anxiety or depression Allergic/Immunologic Allergic/Immunologic ED: Denies lip swelling or urticaria EXAM Physical Exam Const Vital Signs: 03/19/22 13:23 03/19/22 13:23 03/19/22 13:46 Temperature 99.0 F Temperature Source Temporal Pulse Rate 82 Respiratory Rate 18 Respiratory Effort Normal Non-Labored Respiratory Pattern Normal Blood Pressure 199/117 H Blood Pressure Mean 144 Pulse Ox 98 95 Oxygen Delivery Method Room Air Room Air 03/19/22 14:50 Temperature Temperature Source Pulse Rate 70 Respiratory Rate 16 Respiratory Effort Respiratory Pattern Blood Pressure 142/67 H Blood Pressure Mean 92 Pulse Ox 96 Oxygen Delivery Method Room Air Positive well nourished and well developed General Appearance ED: well developed HEENT Reports normocephalic and head/scalp atraumatic Eyes PERRL and EOMs intact bilaterally Neck supple Chest Wall inspection of chest normal and palpation of chest normal Resp normal respiratory effort and clear to auscultation bilaterally Cardio regular rate Rhythm: abnormal rhythm irregularly irregular GI normal to inspection, nondistended, normoactive bowel sounds Palpation: soft Back/Spine no CVA tenderness Extremity normal to inspection Neuro oriented x3 and no sensory deficits noted Sensorium / Orientation: alert Motor Exam: strength 5/5 throughout Psych mental status grossly normal Skin no rashes or lesions noted Heart Score History: Slightly/Non-Suspicious ECG: Nonspecific Repolarization Age: >/= 65 years Risk Factors: 1 or 2 Risk Factors Troponin: </= Normal Limit Score: 4 MDM MDM MDM Narrative Medical decision making narrative: Patient had taken 1 baby aspirin this morning. She was given 3 additional baby aspirin. Patient is placed on lens grinder. EKG and chest x-ray obtained to evaluate for cardiac dysrhythmia, ischemia. Chest x-ray to evaluate cardiac size and lung pathology. Lab work obtained to evaluate for anemia, electrolyte derangement, cardiac ischemia. Patient was given 10 mg of IV labetalol. Lab Data Attestation: I reviewed the patient's lab results. Labs: Laboratory Results - last 24 hr 03/19/22 03/19/22 13:50 13:50 WBC 7.0 RBC 4.55 Hgb 13.8 Hct 41.2 MCV 90.5 MCH 30.3 MCHC 33.5 RDW Std Deviation 43.4 RDW Coeff of Nicci 13.1 Plt Count 260 MPV 9.5 Immature Gran % (Auto) 0.100 Neut % (Auto) 69.5 Lymph % (Auto) 21.8 Merrick % (Auto) 6.4 Eos % (Auto) 1.6 Baso % (Auto) 0.6 Absolute Neuts (auto) 4.9 Absolute Lymphs (auto) 1.53 Nucleated RBC % 0 Sodium 138 Potassium 4.1 Chloride 102 Carbon Dioxide 26.0 Anion Gap 10 BUN 21 H Creatinine 1.15 H Estim Creat Clear Calc 24.76 Est GFR (MDRD) Af Amer 57 L Est GFR (MDRD) Non-Af 47 L BUN/Creatinine Ratio 18.3 Glucose 120 H Calcium 10.3 H Troponin I High Sens 14 Radiography Chest X-Ray - ED: 1 View, Read by ED Physician and Cardiomegaly Diagnostic Testing: Clinical Impression(s) from Imaging Studies Chest X-Ray 03/19/22 13:42 IMPRESSION: Moderate degree of cardiomegaly. Pericardial effusion should BE ruled out. Calcification of the mitral valve annulus. The lungs are clear. Electronically Signed: Mauricio Felix MD at 14:36 EST , EKG Initial EKG: Attestation: I personally reviewed and interpreted this EKG as follows: Interpretation: Atrial Fibrillation (Atrial fibrillation at 88 bpm with left bundle branch block. Patient's EKG appears similar to prior study from November 2021.) Treatment and Re-Evaluation Narrative: CBC and chemistry studies are unremarkable. Troponin is normal at 14. Patient's blood pressure improved to 140 systolic after being given 10 mg of IV labetalol. Portable chest x-ray per my interpretation reveals significant cardiomegaly. The last chest x-ray I have to compare to is from 9 years ago. I performed a bedside ultrasound. I do not see significant pericardial effusion. I believe patient has significant cardiomegaly given her cardiac disease and hypertension. I did review the patient's prior cardiology notes. In November plan was to increase her lisinopril if her systolic pressure remained above 140. Patient is currently prescribed 10 mg. She states she has been taking an extra half a tab daily but has not noted significant improvement in her blood pressure. I spoke Dr. Raman, on-call for cardiology. He would like the patient to increase to 40 mg of lisinopril a day. She can take 20 mg twice a day if she is more comfortable with breaking it up. I will write her a new prescription for 20 mg tabs. She is to keep her follow-up appointment with cardiology next month. Discharge Plan Triage Chief Complaint: Chest Pain ED Provider: Judy Aleman Dx/Rx/DC Orders Clinical Impression: Hypertension, Chest pain Instructions: ED Chest Pain, Uncertain Cause, ED Hypertension, Established Prescriptions: New lisinopril 20 mg tablet 20 mg PO BID Qty: 60 0RF No Action acetaminophen [Tylenol Extra Strength] 500 mg tablet 500 mg PO Q6H PRN (Reason: Pain) cranberry 400 mg capsule 400 mg PO DAILY cholecalciferol (vitamin D3) 50 mcg (2,000 unit) tablet 1,000 unit PO DAILY (DME) Handicapped Placard Qty: 1 0RF Rx Instructions: As directed; Good from 01/12/2019-01/13/2024 lisinopril 10 mg tablet 10 mg PO DAILY Qty: 90 4RF levothyroxine 75 MCG tablet 75 mcg PO SUMOTUTHFRSA aspirin 81 MG tablet,chewable 81 mg PO DAILY@0800 biotin 1 MG capsule 0.5 mg PO WE Lactobacillus acidophilus 1 EACH tablet 1 ea PO DAILY multivitamin Tablet 1 tab PO DAILY levothyroxine 150 mcg Tablet 150 mcg PO WE furosemide 20 mg tablet 20 mg PO DAILY Rx Instructions: May increase PRN for increased shortness of breath; Eliquis 5 mg tablet 5 mg PO BID Qty: 180 3RF propranolol 120 mg capsule,extended release 24hr 120 mg PO QDAY Qty: 90 4RF Primary Care Provider: Nusrat Ballesteros Referrals: Joe Gunderson MD [Med Staff - Active Staff] - Keep Sandro appointment Nusrat Ballesteros [employer]ANCE STUDIO MANAGER[employer] [Primary Care Provider] - 1 Week Disposition Disposition: Home, Self Care
[2022-03-19 13:46] VITALS: O2SAT 95
[2022-03-19] MEDS: Labetalol (Prefilled) 20 MG/4 ML 10 MG IV (13:49)
[2022-03-19] MEDS: Aspirin 81 MG TAB.CHEW 324 MG PO (13:53)
[2022-03-19 13:59] LABS: Absolute Lymphocyte Count 1.53 X10^3/uL (0.83-4.51); Absolute Neutrophil Count 4.9 X10^3/uL (2.0-7.7); Basophil# 0.04 X10^3/uL; Basophil% 0.6 % (0-1); Eosinophil# 0.11 X10^3/uL; Eosinophils% 1.6 % (0-5); Hematocrit 41.2 % (37-47); Hemoglobin 13.8 g/dL (12.0-15.0); Lymphocyte # 1.53 X10^3/ul (0.83-4.51); Lymphocyte % 21.8 % (19-41); Mean Corp Hgb Conc 33.5 g/dL (32-36); Mean Corpuscular Hgb 30.3 pg (27.0-32.0); Mean Corpuscular Volume 90.5 fL (81-99); Mean Platelet Vol. 9.5 fl (6.2-12.0); Monocyte# 0.45 X10^3/uL; Monocyte% 6.4 % (0-10); NRBC Flagged by Analyzer 0 % (0-5); Neutrophil # 4.87 X10^3/uL (2.7-7.7); Neutrophil % 69.5 % (47-70); Platelet Count 260 K/mm3 (150-450); RBC Distribution Width CV 13.1 % (11.6-14.6); RBC Distribution Width SD 43.4 fl (35.1-43.9); Red Blood Count 4.55 M/mm3 (4.2-5.4)
[2022-03-19 14:17] LABS: Anion Gap 10 (5-15); BUN 21 mg/dL (7-18); BUN/Creat Ratio 18.3 RATIO (10-20); Calcium,Total 10.3 mg/dL (8.5-10.1); Chloride 102 mmol/L (98-107); Creatinine, Serum 1.15 mg/dL (0.55-1.02); EST Glomerular Filtration Rate 47 mL/min (>60); Est Glom Filt Rate - Afr Amer 57 mL/min (>60); Estimated Creatinine Clearance 24.76 ml/min; Glucose 120 mg/dL (74-106); Potassium 4.1 mmol/L (3.5-5.1); Sodium Level 138 mmol/L (136-145); Troponin-I HS (w/2H Reflex) 14 pg/mL (3.0-54.0)
[2022-03-19 14:50] VITALS: BP 142/67; PULSE 70; RESP 16; O2SAT 96
[2022-03-19 15:03] VITALS: BP 161/74; PULSE 68
[2022-03-19 15:54] LABS: Reflex Troponin-HS? (from REC) Y
== END 2022-03-19 15:09 | disposition home or self-care (01) ==
PROVIDERS: Emergency Provider Emergency Medicine; PCP Nurse Practitioner Family; Visit Provider Emergency Medicine
DX: R07.9 Chest pain, unspecified (principal); I10 Essential (primary) hypertension; F41.9 Anxiety disorder, unspecified; E78.5 Hyperlipidemia, unspecified; Z79.899 Other long term (current) drug therapy
CPT/HCPCS: 71045; 80048; 84484; 85025; 93005; 96374; 99283; A4216

== ENCOUNTER 2022-03-24 01:16 | Emergency (ER) | payer MEDICARE, OTHER, SELFPAY ==
[2022-03-24 01:18] VITALS: PULSE 69; RESP 15; TEMP 36.1; O2SAT 99; BMI 29.5
[2022-03-24 01:21] VITALS: BP 185/72
[2022-03-24 01:45] VITALS: BP 169/77
--- NOTE | 2022-03-24 02:25 | EKG12_ITS ---
Test Reason : hypertension Blood Pressure : / mmHG Vent. Rate : 055 BPM Atrial Rate : 000 BPM P-R Int : 000 ms QRS Dur : 144 ms QT Int : 470 ms P-R-T Axes : 000 -60 023 degrees QTc Int : 449 ms Atrial fibrillation with slow ventricular response Left axis deviation Left bundle branch block Abnormal ECG Confirmed by BRIE SCHAEFER, ALLEN ([id number]), electronic news gathering editor RICK SUAREZ ([id number]) on 03/25/2022 1:19:11 PM Referred By: Ladarius Confirmed By:ALLEN BAIRD MD
[2022-03-24] MEDS: cloNIDine HCl 0.1 MG Tablet PO (02:43)
[2022-03-24 02:53] LABS: Absolute Lymphocyte Count 1.44 X10^3/uL (0.83-4.51); Absolute Neutrophil Count 3.4 X10^3/uL (2.0-7.7); Basophil# 0.05 X10^3/uL; Basophil% 0.9 % (0-1); Eosinophil# 0.25 X10^3/uL; Eosinophils% 4.4 % (0-5); Hematocrit 40.1 % (37-47); Hemoglobin 13.1 g/dL (12.0-15.0); Lymphocyte # 1.44 X10^3/ul (0.83-4.51); Lymphocyte % 25.6 % (19-41); Mean Corp Hgb Conc 32.7 g/dL (32-36); Mean Platelet Vol. 9.3 fl (6.2-12.0); Monocyte# 0.48 X10^3/uL; Monocyte% 8.5 % (0-10); NRBC Flagged by Analyzer 0 % (0-5); Neutrophil # 3.38 X10^3/uL (2.7-7.7); Neutrophil % 60.2 % (47-70); Platelet Count 246 K/mm3 (150-450); RBC Distribution Width CV 13.1 % (11.6-14.6); RBC Distribution Width SD 44.4 fl (35.1-43.9); Red Blood Count 4.36 M/mm3 (4.2-5.4); White Blood Count 5.6 K/mm3 (4.4-11.0)
[2022-03-24 03:07] LABS: Anion Gap 7 (5-15); BUN 22 mg/dL (7-18); BUN/Creat Ratio 21.2 RATIO (10-20); Calcium,Total 9.9 mg/dL (8.5-10.1); Chloride 105 mmol/L (98-107); Creatinine, Serum 1.04 mg/dL (0.55-1.02); EST Glomerular Filtration Rate 53 mL/min (>60); Est Glom Filt Rate - Afr Amer 64 mL/min (>60); Estimated Creatinine Clearance 27.37 ml/min; Glucose 119 mg/dL (74-106); Potassium 4.7 mmol/L (3.5-5.1); Sodium Level 138 mmol/L (136-145); Troponin-I HS 14 pg/mL (3.0-54.0)
[2022-03-24 03:17] VITALS: BP 169/97; PULSE 59; RESP 16; O2SAT 97
--- NOTE | 2022-03-24 03:34 | EX.ED.DYSGE1 ---
HPI History of Present Illness Chief Complaint: Hypertension Narrative Narrative: Patient is an 86-year-old female with past medical history of hypertension as well as persistent atrial fibrillation and nonischemic cardiomyopathy. She is anticoagulated on Eliquis. Patient was seen on Friday secondary to hypertension and at that time had her lisinopril increased from 10 mg daily to 40. Patient states that she also was on propranolol. She states she been taking her medications as directed. She states this evening she woke up from sleep and just felt bad. She took her blood pressure and it was elevated approximately 185/90 which concerned her as she states she took her blood pressure medications around 7:30 PM and with this called EMS coming to the hospital for evaluation. Patient denies any headache or change in vision any chest pain shortness of breath or abdominal pain associated with this. She also denies any excessive stimulant use [facility] Medical History Atrial enlargement, bilateral Atrial fibrillation Bundle branch block Carpal tunnel syndrome Cataract Diastolic dysfunction Dyspnea on exertion Essential hypertension Essential tremor Exertional chest pain Fatigue Fibromyalgia Hyperlipidemia Hypertension Hypothyroidism Irritable bowel syndrome Left bundle branch block Nonrheumatic mitral (valve) insufficiency Nonrheumatic mitral (valve) stenosis Osteoarthritis Persistent atrial fibrillation Restless leg syndrome Sjogren's disease Tubal ligation evaluation Valvular heart disease Home Medications Lactobacillus acidophilus 2 billion cell tablet 1 ea PO DAILY 02/26/13 [History Last Taken Unknown] aspirin 81 mg chewable tablet 81 mg PO DAILY@0800 02/26/13 [History Last Taken 04/09/13] biotin 1 mg capsule 0.5 mg PO WE 02/26/13 [History Last Taken Unknown] levothyroxine 75 mcg tablet 75 mcg PO SUMOTUTHFRSA 02/26/13 [History Last Taken 04/09/13] acetaminophen 500 mg tablet (Tylenol Extra Strength) 500 mg PO Q6H PRN Pain 05/19/17 [History Last Taken Unknown] cranberry 400 mg capsule 400 mg PO DAILY 04/13/18 [History Last Taken Unknown] Handicapped Placard #1 ea 01/12/19 [Rx Last Taken Unknown] cholecalciferol (vitamin D3) 50 mcg (2,000 unit) tablet 1,000 unit PO DAILY 04/19/19 [History Last Taken Unknown] apixaban 5 mg tablet (Eliquis) 5 mg PO BID #180 tabs 06/18/21 [Rx Last Taken Unknown] lisinopril 10 mg tablet 10 mg PO DAILY #90 tabs 09/05/21 [Rx Last Taken Unknown] propranolol 120 mg capsule,extended release 24 hr 120 mg PO QDAY #90 caps 10/24/21 [Rx Last Taken Unknown] furosemide 20 mg tablet 20 mg PO DAILY 12/16/21 [History Last Taken Unknown] levothyroxine 150 mcg tablet 150 mcg PO WE 12/16/21 [History Last Taken Unknown] multivitamin 1 tab PO DAILY 12/16/21 [History Last Taken Unknown] lisinopril 20 mg tablet 20 mg PO BID #60 tabs 03/19/22 [Rx Last Taken Unknown] Allergy/AdvReac Type Severity Reaction Status Date / Time No Known Allergies Allergy Verified 03/24/22 01:20 Family History Daughter Thyroid disorder Son Hypertension Son Spine degeneration Son Hypertension Tremors of nervous system Sister Arthritis Sister Cancer, Onset Age: 50 cervical Brother Arthritis Mother Hypertension CVA (cerebral vascular accident) Father Hx of syphilis Grandfather No problems noted. Grandmother , unknown causes No problems noted. Surgical History H/O tubal ligation History of arthroplasty History of bilateral cataract extraction History of carpal tunnel release Hx of appendectomy Social History Smoking Status: Never smoker alcohol intake: never substance use type: does not use caffeine: No what type of physical activity do you participate in: none seatbelt use: always do you feel safe at home: Yes ROS ROS ED Constitutional Constitutional ED: Denies chills or fever(s) Eyes Eyes: Denies change in vision ENT ENT ED: Denies sore throat Cardiovascular Cardiovascular: Denies chest pain or racing heartbeat Respiratory/Chest Respiratory/Chest: Denies cough or dyspnea Gastrointestinal Gastrointestinal: Denies abdominal pain, diarrhea, nausea or vomiting Genitourinary Genitourinary ED: Denies dysuria Musculoskeletal Musculoskeletal: Denies myalgias Integumentary Denies rash Neurologic Neurologic: Denies headache(s), paresthesias or weakness Hematologic/Lymphatic Hematologic/Lymphatic: Reports easy bleeding and easy bruising EXAM Physical Exam Const Vital Signs: 03/24/22 01:18 03/24/22 01:20 03/24/22 01:21 Temperature 97 F L Temperature Source Temporal Pulse Rate 69 Respiratory Rate 15 Respiratory Effort Normal Non-Labored Respiratory Pattern Normal Blood Pressure 185/72 H Blood Pressure Mean 109 Pulse Ox 99 Oxygen Delivery Method Room Air 03/24/22 01:45 03/24/22 03:17 Temperature Temperature Source Pulse Rate 59 L Respiratory Rate 16 Respiratory Effort Respiratory Pattern Blood Pressure 169/77 H 169/97 H Blood Pressure Mean 107 121 Pulse Ox 97 Oxygen Delivery Method Room Air Positive well nourished and well developed General Appearance ED: well developed HEENT Reports moist mucous membranes Eyes PERRL and EOMs intact bilaterally Neck supple and no JVD Resp normal respiratory effort and clear to auscultation bilaterally Cardio Rate: other Other Details: Slightly bradycardic rate with irregularly irregular rhythm consistent with underlying history of chronic atrial fibrillation Radial pulses are plus 2 out of 4 bilaterally Carotid pulses equal and symmetric GI normal to inspection, nondistended, normoactive bowel sounds, non-tender, non-distended and no masses GI Narrative: No pulsatile mass Auscultation: normoactive bowel sounds Palpation: soft Extremity normal to inspection Extremity Narrative: No asymmetric edema no pitting edema negative Homans' sign bilaterally Neuro oriented x3 and CN's II-XII intact bilaterally Sensorium / Orientation: alert Psych Psych Narrative: Patient has a nervous/anxious affect Skin no rashes or lesions noted MDM MDM MDM Narrative Medical decision making narrative: Patient presented to the ER hypertensive consistent with what she reported at home but otherwise had no report or physical exam findings concerning for endorgan damage. However because she felt she just did not feel well and had hypertension at home there is concern that she could be experiencing acute kidney disease or even cardiac event so basic blood work was ordered. Blood work shows a creatinine which is actually improved from her previous visit and her troponin has remained stable at 14. Patient's blood pressure was also resolving spontaneously and at this time as she has no headache abdominal pain or signs of endorgan damage there is no need for further work-up. Patient was advised to continue the medication as directed at her last visit but at this time as she has no signs of acute cardiac event acute cerebral event or acute renal failure there is no need for further observation or treatment and she is otherwise safe for discharge Lab Data Attestation: I reviewed the patient's lab results. Labs: Laboratory Results - last 24 hr 03/24/22 03/24/22 02:42 02:42 WBC 5.6 RBC 4.36 Hgb 13.1 Hct 40.1 MCV 92.0 MCH 30.0 MCHC 32.7 RDW Std Deviation 44.4 H RDW Coeff of Nicci 13.1 Plt Count 246 MPV 9.3 Immature Gran % (Auto) 0.400 Neut % (Auto) 60.2 Lymph % (Auto) 25.6 Mineral % (Auto) 8.5 Eos % (Auto) 4.4 Baso % (Auto) 0.9 Absolute Neuts (auto) 3.4 Absolute Lymphs (auto) 1.44 Nucleated RBC % 0 Sodium 138 Potassium 4.7 Chloride 105 Carbon Dioxide 26.0 Anion Gap 7 BUN 22 H Creatinine 1.04 H Estim Creat Clear Calc 27.37 Est GFR (MDRD) Af Amer 64 Est GFR (MDRD) Non-Af 53 L BUN/Creatinine Ratio 21.2 H Glucose 119 H Calcium 9.9 Troponin I High Sens 14 Discharge Plan Triage Chief Complaint: Hypertension ED Provider: Chago Lopez Dx/Rx/DC Orders Clinical Impression: Accelerated hypertension, Atrial fibrillation, chronic, Current use of intermodal customer service anticoagulation Instructions: Blood Pressure Check Steps, ED Hypertension, Established Prescriptions: No Action acetaminophen [Tylenol Extra Strength] 500 mg tablet 500 mg PO Q6H PRN (Reason: Pain) cranberry 400 mg capsule 400 mg PO DAILY cholecalciferol (vitamin D3) 50 mcg (2,000 unit) tablet 1,000 unit PO DAILY (DME) Handicapped Placard Qty: 1 0RF Rx Instructions: As directed; Good from 01/12/2019-01/13/2024 lisinopril 10 mg tablet 10 mg PO DAILY Qty: 90 4RF levothyroxine 75 MCG tablet 75 mcg PO SUMOTUTHFRSA aspirin 81 MG tablet,chewable 81 mg PO DAILY@0800 biotin 1 MG capsule 0.5 mg PO WE Lactobacillus acidophilus 1 EACH tablet 1 ea PO DAILY multivitamin Tablet 1 tab PO DAILY levothyroxine 150 mcg Tablet 150 mcg PO WE furosemide 20 mg tablet 20 mg PO DAILY Rx Instructions: May increase PRN for increased shortness of breath; lisinopril 20 mg tablet 20 mg PO BID Qty: 60 0RF Eliquis 5 mg tablet 5 mg PO BID Qty: 180 3RF propranolol 120 mg capsule,extended release 24hr 120 mg PO QDAY Qty: 90 4RF Primary Care Provider: Nusrat Ballesteros Referrals: Nusrat Ballesteros, [employer] WORK[employer] [Primary Care Provider] - Activity Restrictions/Additional Instructions: Please continue take the blood pressure medication as prescribed by your doctor and return to the ER should you have any further concerns Disposition Disposition: Home, Self Care Discharge Date/Time: 03/24/22 04:15
== END 2022-03-24 04:15 | disposition home or self-care (01) ==
PROVIDERS: Emergency Provider Emergency Medicine; PCP Nurse Practitioner Family; Visit Provider Emergency Medicine
DX: I10 Essential (primary) hypertension (principal); I48.20 Chronic atrial fibrillation, unspecified; E78.5 Hyperlipidemia, unspecified; Z79.01 Long term (current) use of anticoagulants
CPT/HCPCS: 80048; 84484; 85025; 93005; 99285; A4216

== ENCOUNTER 2022-04-15 17:57 | Emergency (ER) | payer MEDICARE, OTHER, SELFPAY ==
[2022-04-15 18:16] VITALS: BP 140/105; PULSE 140; RESP 18; TEMP 36.6; O2SAT 100
--- NOTE | 2022-04-15 18:22 | EKG12_ITS ---
Test Reason : Blood Pressure : / mmHG Vent. Rate : 084 BPM Atrial Rate : 000 BPM P-R Int : 000 ms QRS Dur : 144 ms QT Int : 404 ms P-R-T Axes : 000 232 013 degrees QTc Int : 477 ms Atrial fibrillation Non-specific intra-ventricular conduction block Possible Anterolateral infarct , age undetermined Abnormal ECG Confirmed by MARTHA SCHAEFER, MARY KATE ([id number]), research editor RICK SUAREZ ([id number]) on 04/17/2022 10:25:58 AM Referred By: HAYLIE Confirmed By:MARY KATE THOMAS MD
[2022-04-15 18:35] LABS: Absolute Lymphocyte Count 1.72 X10^3/uL (0.83-4.51); Basophil# 0.06 X10^3/uL; Basophil% 0.9 % (0-1); Eosinophil# 0.23 X10^3/uL; Eosinophils% 3.4 % (0-5); Hematocrit 38.3 % (37-47); Hemoglobin 12.6 g/dL (12.0-15.0); Lymphocyte # 1.72 X10^3/ul (0.83-4.51); Lymphocyte % 25.7 % (19-41); Mean Corp Hgb Conc 32.9 g/dL (32-36); Mean Corpuscular Hgb 30.3 pg (27.0-32.0); Mean Corpuscular Volume 92.1 fL (81-99); Mean Platelet Vol. 9.8 fl (6.2-12.0); Monocyte# 0.66 X10^3/uL; Monocyte% 9.9 % (0-10); NRBC Flagged by Analyzer 0 % (0-5); Neutrophil # 3.99 X10^3/uL (2.7-7.7); Neutrophil % 59.8 % (47-70); Platelet Count 275 K/mm3 (150-450); RBC Distribution Width CV 13.3 % (11.6-14.6); RBC Distribution Width SD 45.3 fl (35.1-43.9); Red Blood Count 4.16 M/mm3 (4.2-5.4); White Blood Count 6.7 K/mm3 (4.4-11.0)
[2022-04-15 18:55] LABS: Anion Gap 10 (5-15); BUN 19 mg/dL (7-18); BUN/Creat Ratio 18.3 RATIO (10-20); Calcium,Total 10.1 mg/dL (8.5-10.1); Chloride 101 mmol/L (98-107); Creatinine, Serum 1.04 mg/dL (0.55-1.02); EST Glomerular Filtration Rate 53 mL/min (>60); Est Glom Filt Rate - Afr Amer 64 mL/min (>60); Glucose 127 mg/dL (74-106); Potassium 4.4 mmol/L (3.5-5.1); Sodium Level 136 mmol/L (136-145); Troponin-I HS 13 pg/mL (3.0-54.0)
--- NOTE | 2022-04-15 19:44 | ED.VIS.CHEST ---
HPI History of Present Illness Chief Complaint: Chest Pain Informant: patient and family Onset/Context/Timing Onset: Yesterday Narrative Narrative: Per sent by private vehicle here with daughter with additional information. Chest burning middle chest to her left neck since yesterday its intermittent. No vomiting or diarrhea. Nonbloody stools. History of A-fib on Eliquis. No history of coronary disease. No history of heart caths. She does follow Dr. Gunderson. Reports has had illness recovering over the last 2 months. 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 She reports she is started on Zoloft 2 weeks ago due to increasing anxiety. She has had a decreased appetite. She is feeling weaker per daughter. She denies urinary symptoms. Denies any current cough. Prior Similar Symptoms: No PFSH PFSH Medical History Atrial enlargement, bilateral Atrial fibrillation Bundle branch block Carpal tunnel syndrome Cataract Contact with and (suspected) exposure to other viral communicable diseases Diastolic dysfunction Dyspnea on exertion Essential hypertension Essential tremor Exertional chest pain Fatigue Fibromyalgia Hyperlipidemia Hypertension Hypothyroidism Irritable bowel syndrome Left bundle branch block Nonrheumatic mitral (valve) insufficiency Nonrheumatic mitral (valve) stenosis Osteoarthritis Persistent atrial fibrillation Restless leg syndrome Sjogren's disease Tubal ligation evaluation Valvular heart disease Home Medications Lactobacillus acidophilus 2 billion cell tablet 1 ea PO DAILY 02/26/13 [History Last Taken Unknown] aspirin 81 mg chewable tablet 81 mg PO DAILY@0800 02/26/13 [History Last Taken 04/09/13] biotin 1 mg capsule 0.5 mg PO WE 02/26/13 [History Last Taken Unknown] acetaminophen 500 mg tablet (Tylenol Extra Strength) 500 mg PO Q6H PRN Pain 05/19/17 [History Last Taken Unknown] cranberry 400 mg capsule 400 mg PO DAILY 04/13/18 [History Last Taken Unknown] Handicapped Placard #1 ea 01/12/19 [Rx Last Taken Unknown] cholecalciferol (vitamin D3) 50 mcg (2,000 unit) tablet 1,000 unit PO DAILY 04/19/19 [History Last Taken Unknown] propranolol 120 mg capsule,extended release 24 hr 120 mg PO QDAY #90 caps 10/24/21 [Rx Last Taken Unknown] multivitamin 1 tab PO DAILY 12/16/21 [History Last Taken Unknown] amlodipine 5 mg tablet 5 mg PO DAILY #30 tabs 03/25/22 [Rx Last Taken Unknown] furosemide 40 mg tablet 20 mg PO DAILY 04/10/22 [History Last Taken Unknown] levothyroxine 75 mcg tablet 75 mcg PO DAILY 04/10/22 [History Last Taken Unknown] apixaban 5 mg tablet (Eliquis) 5 mg PO BID #180 tabs 04/12/22 [Rx Last Taken Unknown] lisinopril 20 mg tablet 20 mg PO BID 04/15/22 [History Last Taken Unknown] sertraline 25 mg tablet 25 mg PO DAILY 04/15/22 [History Last Taken Unknown] Allergy/AdvReac Type Severity Reaction Status Date / Time No Known Allergies Allergy Verified 04/15/22 18:16 Family History Daughter Thyroid disorder Son Hypertension Son Spine degeneration Son Hypertension Tremors of nervous system Sister Arthritis Sister Cancer, Onset Age: 50 cervical Brother Arthritis Mother Hypertension CVA (cerebral vascular accident) Father Hx of syphilis Grandfather No problems noted. Grandmother , unknown causes No problems noted. Surgical History H/O tubal ligation History of arthroplasty History of bilateral cataract extraction History of carpal tunnel release Hx of appendectomy Social History Smoking Status: Never smoker alcohol intake: never substance use type: does not use caffeine: No what type of physical activity do you participate in: none seatbelt use: always do you feel safe at home: Yes ROS ROS ED Constitutional Constitutional ED: Denies chills, fever(s) or sweats Eyes Eyes: Denies change in vision ENT ENT ED: Denies dysphagia or sore throat Cardiovascular Cardiovascular: Reports chest pain; Denies leg edema, palpitations or racing heartbeat Respiratory/Chest Respiratory/Chest: Denies cough, dyspnea or dyspnea on exertion Gastrointestinal Gastrointestinal: Denies abdominal pain, diarrhea, nausea or vomiting Genitourinary Genitourinary ED: Denies dysuria, hematuria or urinary frequency Musculoskeletal Musculoskeletal: Denies back pain, extremity pain or neck pain Integumentary Denies rash or wounds Neurologic Neurologic: Denies headache(s), paresthesias or weakness EXAM Physical Exam Const Vital Signs: 04/15/22 18:16 04/15/22 19:49 04/15/22 21:40 Temperature 98 F Temperature Source Temporal Pulse Rate 140 H Respiratory Rate 18 Blood Pressure 140/105 H 130/78 H Blood Pressure Mean 116 Pulse Ox 100 Oxygen Delivery Method Room Air Room Air Positive well nourished and well developed General Appearance ED: well developed and NAD HEENT Reports moist mucous membranes normocephalic and atraumatic Eyes PERRL, EOMs intact bilaterally and conjunctivae normal General Eye ED: Yes normal appearance of both eyes Neck no lymphadenopathy and supple General: Negative for tenderness Chest Wall Chest: Negative for tenderness Resp normal respiratory effort and normal air movement Effort and Inspection: symmetric chest movement; Negative for respiratory distress Cardio regular rate and no murmurs Rhythm: abnormal rhythm other (Rate in the 80s during exam.) Peripheral Pulses: pulses 2+ throughout GI normal to inspection, nondistended, normoactive bowel sounds and non-tender GI Narrative: Negative Mohan's or McBurney's tenderness. Palpation: Negative for guarding or rebound tenderness present Back/Spine no CVA tenderness and no thoracic nor lumbar tenderness Extremity normal to inspection General Extremety ED: Negative for edema or tenderness General Extremity: Negative for edema Neuro oriented x3 and no sensory deficits noted Sensorium / Orientation: awake and alert Skin no rashes or lesions noted and no wounds MDM MDM MDM Narrative Medical decision making narrative: Interventions / MDM: Differential diagnosis: Acute coronary syndrome, GERD, medication side effect. Diagnosis considered but do not suspect: Pneumonia however no cough. Pneumothorax however symmetric breath sounds. Pulmonary embolism however currently on Eliquis with no missed doses. My EKG interpretation: Rate controlled A-fib rate of 84, no ST or T wave changes, left bundle branch block. Chronic findings. Imaging independently reviewed and interpreted by myself: 1 chest x-ray minimal fluid right fissure. No infiltrate. No pneumothorax. External documents reviewed: N/A Test considered but not ordered:N/A ED course: Patient chest burning she declines any medications. Work-up initiated in triage. EKG chronic A-fib rate controlled. Cardiac work-up negative x2. With her multiple new worsening symptoms anorexia dyspepsia nausea weakness fatigue, I did looked up side effects of her Zoloft which is noted as side effects. She is on a low-dose currently at 25 mg. They are more reassured with this finding. They will call PCP office tomorrow to discuss options to continue and see if symptoms improve versus stopping this medication. All questions were answered. Re-evaluation: stable Disposition discussed with patient/family/significant other: Patient and daughter Case discussed with consulting clinician: N/A Lab Data Attestation: I reviewed the patient's lab results. Labs: Laboratory Results - last 24 hr 04/15/22 04/15/22 04/15/22 17:35 17:35 20:41 WBC 6.7 RBC 4.16 L Hgb 12.6 Hct 38.3 MCV 92.1 MCH 30.3 MCHC 32.9 RDW Std Deviation 45.3 H RDW Coeff of Nicci 13.3 Plt Count 275 MPV 9.8 Immature Gran % (Auto) 0.300 Neut % (Auto) 59.8 Lymph % (Auto) 25.7 [place] % (Auto) 9.9 Eos % (Auto) 3.4 Baso % (Auto) 0.9 Absolute Neuts (auto) 4.0 Absolute Lymphs (auto) 1.72 Nucleated RBC % 0 Sodium 136 Potassium 4.4 Chloride 101 Carbon Dioxide 25.0 Anion Gap 10 BUN 19 H Creatinine 1.04 H Est GFR (MDRD) Af Amer 64 Est GFR (MDRD) Non-Af 53 L BUN/Creatinine Ratio 18.3 Glucose 127 H Calcium 10.1 Troponin I High Sens 13 14 Radiography Diagnostic Testing: Clinical Impression(s) from Imaging Studies Chest X-Ray 04/15/22 20:05 IMPRESSION: Minimal fluid in the right fissure. Electronically Signed: Adria López MD at 20:23 EST , EKG Initial EKG: Attestation: I personally reviewed and interpreted this EKG as follows: Comments: Rate controlled A-fib rate of 84, no ST or T wave changes, left bundle branch block. Similar findings from previous. Discharge Plan Triage Chief Complaint: Chest Pain ED Provider: John Alston Dx/Rx/DC Orders Clinical Impression: Chest pain, Dyspepsia, Medication side effect, Persistent atrial fibrillation Instructions: ED Chest Pain, Noncardiac Prescriptions: No Action acetaminophen [Tylenol Extra Strength] 500 mg tablet 500 mg PO Q6H PRN (Reason: Pain) cranberry 400 mg capsule 400 mg PO DAILY cholecalciferol (vitamin D3) 50 mcg (2,000 unit) tablet 1,000 unit PO DAILY (DME) Handicapped Christo Qty: 1 0RF Rx Instructions: As directed; Good from 01/12/2019-01/13/2024 furosemide 40 mg tablet 20 mg PO DAILY aspirin 81 MG tablet,chewable 81 mg PO DAILY@0800 biotin 1 MG capsule 0.5 mg PO WE Lactobacillus acidophilus 1 EACH tablet 1 ea PO DAILY levothyroxine 75 mcg tablet 75 mcg PO DAILY multivitamin Tablet 1 tab PO DAILY lisinopril 20 mg tablet 20 mg PO BID sertraline 25 mg tablet 25 mg PO DAILY Label Comments: TAKE 1 TABLET BY MOUTH EVERY DAY propranolol 120 mg capsule,extended release 24hr 120 mg PO QDAY Qty: 90 4RF amlodipine 5 mg tablet 5 mg PO DAILY Qty: 30 11RF Eliquis 5 mg tablet 5 mg PO BID Qty: 180 3RF Primary Care Provider: Nusrat Ballesteros Referrals: Nusrat Ballesteros, ICU SPECIALIST-C [Primary Care Provider] - 3-5 Days Activity Restrictions/Additional Instructions: Cardiac work-up is negative. Review of your Zoloft with side effects has many symptoms that you are describing with dyspepsia, anorexia, nausea, fatigue and weakness. Discussed with your doctor tomorrow if you should continue this versus stopping this medication. Disposition Disposition: Home, Self Care Discharge Date/Time: 04/15/22 21:41
[2022-04-15 19:47] VITALS: BMI 27.8
--- NOTE | 2022-04-15 20:05 | RAD_ITS ---
STUDY: XR Chest 1 View 04/15/2022 8:00 PM REASON FOR EXAM: Female, 86 years old. CHEST PAIN chest pain COMPARISON: 03.19.22 TECHNIQUE: XR Chest 1 View FINDINGS: Minimal fluid in the right fissure. Enlarged heart size. Normal mediastinum. Normal minna. Prominent appearing increased interstitial lung markings. Normal visualized pulmonary arteries. There is atherosclerotic calcification of the aortic arch with tortuosity. There are diffuse degenerative changes of the visualized thoracic spine. There is degenerative osteoarthritis of the bilateral shoulders. There is no demonstrated abnormality of the visualized soft tissue structures of the upper abdomen. RAD/Chest 1 View (Portable) IMPRESSION: Minimal fluid in the right fissure. Electronically Signed: Adria López MD at 20:23 EST ,
[2022-04-15 21:13] LABS: Troponin-I HS 14 pg/mL (3.0-54.0)
[2022-04-15 21:40] VITALS: BP 130/78
== END 2022-04-15 21:41 | disposition home or self-care (01) ==
PROVIDERS: Emergency Provider Emergency Medicine; PCP Nurse Practitioner Family; Visit Provider Emergency Medicine
DX: R07.9 Chest pain, unspecified (principal); I48.19 Other persistent atrial fibrillation; T43.225A Adverse effect of selective serotonin reuptake inhibitors, initial encounter; E78.5 Hyperlipidemia, unspecified; M79.7 Fibromyalgia; I10 Essential (primary) hypertension; Z79.01 Long term (current) use of anticoagulants; Z79.899 Other long term (current) drug therapy; R10.13 Epigastric pain
CPT/HCPCS: 71045; 80048; 84484; 85025; 93005; 99285; A4216

== ENCOUNTER → 2022-06-10 | Outpatient (CLI) | payer MEDICARE, OTHER, SELFPAY ==
[2022-06-10 15:35] LABS: Free T3 1.6 pg/mL (2.18-3.98); T4 Free Direct 1.24 ng/dL (0.76-1.46); Thyroid Stim Hormone (TSH) 4.19 uIU/mL (0.358-3.74)
== END | disposition home or self-care (01) ==
PROVIDERS: PCP Nurse Practitioner Family; Referring Provider Nurse Practitioner Family; Visit Provider Nurse Practitioner Family
DX: E03.9 Hypothyroidism, unspecified (principal)
CPT/HCPCS: 36415; 84439; 84443; 84481

== ENCOUNTER → 2022-08-13 | Outpatient (CLI) | payer MEDICARE, OTHER, SELFPAY ==
[2022-08-13 10:43] LABS: Anion Gap 4 (5-15); BUN 26 mg/dL (7-18); Calcium,Total 9.5 mg/dL (8.5-10.1); Chloride 106 mmol/L (98-107); Creatinine, Serum 1.18 mg/dL (0.55-1.02); EST Glomerular Filtration Rate 46 mL/min (>60); Est Glom Filt Rate - Afr Amer 56 mL/min (>60); Glucose 119 mg/dL (74-106); Potassium 4.2 mmol/L (3.5-5.1); Sodium Level 137 mmol/L (136-145)
[2022-08-13 15:45] LABS: T4 Total, Thyroxin 12.5 ug/dL (4.8-13.9); Thyroid Stim Hormone (TSH) 4.77 uIU/mL (0.358-3.74)
[2022-08-14 20:20] LABS: T4 Free Direct 1.34 ng/dL (0.76-1.46)
== END | disposition home or self-care (01) ==
LOC: MTLAB 09:14
PROVIDERS: PCP Nurse Practitioner Family; Referring Provider Nurse Practitioner Family; Visit Provider Nurse Practitioner Family
DX: I10 Essential (primary) hypertension (principal); E78.00 Pure hypercholesterolemia, unspecified; E55.9 Vitamin D deficiency, unspecified; E03.9 Hypothyroidism, unspecified
CPT/HCPCS: 36415; 80048; 84436; 84439; 84443

== ENCOUNTER → 2022-09-26 | Outpatient (CLI) | payer MEDICARE, OTHER, SELFPAY ==
[2022-09-26 12:43] LABS: T4 Free Direct 1.54 ng/dL (0.76-1.46); Thyroid Stim Hormone (TSH) 1.54 uIU/mL (0.358-3.74)
== END | disposition home or self-care (01) ==
LOC: MTLAB 10:29
PROVIDERS: PCP Nurse Practitioner Family; Referring Provider Nurse Practitioner Family; Visit Provider Nurse Practitioner Family
DX: E03.9 Hypothyroidism, unspecified (principal)
CPT/HCPCS: 36415; 84439; 84443

== ENCOUNTER 2022-11-06 13:04 | Inpatient (IN) | payer MEDICARE, OTHER, SELFPAY ==
[2022-11-06] VITALS (10 sets, daily range): BP systolic 121–148; BP diastolic 52–79; PULSE 58–78; RESP 14–18; TEMP 36.3–37.1; O2SAT 95–100; BMI 29.1; BMI 28.0
--- NOTE | 2022-11-06 13:41 | EDS_ITS ---
HPI History of Present Illness Chief Complaint: GI Bleed Detail of Chief Complaint: Anemia with concern for GI bleed Informant: patient Narrative Narrative: Patient presents to the emergency department at the request of her primary care physician for concern about anemia and GI bleed. Patient had blood work done this morning and was contacted and told to come to the ER because her hemoglobin was 5.7. Patient states that she has had off-and-on blood in her stool and she thought it was related to her irritable bowel syndrome. Patient on apixaban for history of A-fib. She does describe some generalized weakness especially over the last week or so. She denies any abdominal pain. She is never had a blood transfusion. She denies black stool. She denies urinary symptoms. [facility] Medical History (Updated 11/06/22 @ 14:[address] Michaela Narayan MD) Atrial enlargement, bilateral Atrial fibrillation Bundle branch block Carpal tunnel syndrome Cataract Diastolic dysfunction Essential hypertension Essential tremor Exertional chest pain Fibromyalgia Hyperlipidemia Hypertension Hypothyroidism Irritable bowel syndrome Left bundle branch block Nonrheumatic mitral (valve) insufficiency Nonrheumatic mitral (valve) stenosis Osteoarthritis Persistent atrial fibrillation Restless leg syndrome Sjogren's disease Tubal ligation evaluation Valvular heart disease Home Medications Lactobacillus acidophilus 2 billion cell tablet 1 ea PO DAILY 02/26/13 [History Last Taken Unknown] aspirin 81 mg chewable tablet 81 mg PO DAILY@0800 02/26/13 [History Last Taken 04/09/13] biotin 1 mg capsule 0.5 mg PO WE 02/26/13 [History Last Taken Unknown] acetaminophen 500 mg tablet (Tylenol Extra Strength) 500 mg PO Q6H PRN Pain 05/19/17 [History Last Taken Unknown] cranberry 400 mg capsule 400 mg PO DAILY 04/13/18 [History Last Taken Unknown] Handicapped Placard #1 ea 01/12/19 [Rx Last Taken Unknown] cholecalciferol (vitamin D3) 50 mcg (2,000 unit) tablet 1,000 unit PO DAILY 04/19/19 [History Last Taken Unknown] propranolol 120 mg capsule,extended release 24 hr 120 mg PO QDAY #90 caps 10/24/21 [Rx Last Taken Unknown] multivitamin 1 tab PO DAILY 12/16/21 [History Last Taken Unknown] furosemide 40 mg tablet 20 mg PO DAILY 04/10/22 [History Last Taken Unknown] levothyroxine 75 mcg tablet 75 mcg PO DAILY 04/10/22 [History Last Taken Unknown] apixaban 5 mg tablet (Eliquis) 5 mg PO BID #180 tabs 04/12/22 [Rx Last Taken Unknown] sertraline 25 mg tablet 25 mg PO DAILY 04/15/22 [History Last Taken Unknown] amlodipine 5 mg tablet 5 mg PO DAILY #90 tabs 04/16/22 [Rx Last Taken Unknown] lisinopril 20 mg tablet 20 mg PO BID #180 tabs 04/29/22 [Rx Last Taken Unknown] Allergy/AdvReac Type Severity Reaction Status Date / Time No Known Allergies Allergy Verified 11/06/22 13:05 Family History Daughter Thyroid disorder Son Hypertension Son Spine degeneration Son Hypertension Tremors of nervous system Sister Arthritis Sister Cancer, Onset Age: 50 cervical Brother Arthritis Mother Hypertension CVA (cerebral vascular accident) Father Hx of syphilis Grandfather No problems noted. Grandmother , unknown causes No problems noted. Surgical History H/O tubal ligation History of arthroplasty History of bilateral cataract extraction History of carpal tunnel release Hx of appendectomy Social History Smoking Status: Never smoker alcohol intake: never substance use type: does not use caffeine: No what type of physical activity do you participate in: none seatbelt use: always do you feel safe at home: Yes ROS ROS ED Review of Systems ROS Unobtainable: other Constitutional Constitutional ED: Reports lethargy; Denies chills, fever(s), sweats or weight loss Eyes Eyes: Denies blurry vision, change in vision or diplopia ENT ENT ED: Denies rhinorrhea or sore throat Cardiovascular Cardiovascular: Denies chest pain, orthopnea or racing heartbeat Respiratory/Chest Respiratory/Chest: Denies cough, dyspnea, dyspnea on exertion, orthopnea or sputum Gastrointestinal Gastrointestinal: Reports other Details: Blood in stool ; Denies abdominal pain, diarrhea, nausea or vomiting Genitourinary Genitourinary ED: Denies dysuria, hematuria or urinary frequency Musculoskeletal Musculoskeletal: Denies arthralgias, back pain, myalgias or neck pain Integumentary Denies abscess, Abrasions or rash Neurologic Neurologic: Reports weakness; Denies headache(s) Psychiatric Psychiatric: Denies anxiety, depression or suicidal thoughts Endocrine Endocrinology: Denies polydipsia, polyphagia or polyuria Hematologic/Lymphatic Hematologic/Lymphatic: Denies easy bleeding, easy bruising or lymphadenopathy Allergic/Immunologic Allergic/Immunologic ED: Denies mouth swelling, tongue swelling or urticaria EXAM Physical Exam Const Vital Signs: 11/06/22 13:05 11/06/22 13:55 Temperature 97.5 F L Temperature Source Temporal Pulse Rate 63 Respiratory Rate 18 Respiratory Effort Normal Non-Labored Respiratory Pattern Normal Blood Pressure 137/63 H Blood Pressure Mean 87 Pulse Ox 100 Oxygen Delivery Method Room Air Positive well nourished and well developed General Appearance ED: well developed and NAD HEENT Reports TM's clear and moist mucous membranes normocephalic and atraumatic; Negative for trauma or tenderness Tympanic Membrane ED: Yes TM's clear Eyes PERRL and EOMs intact bilaterally General Eye ED: Negative for pale conjunctiva or scleral icterus Neck no lymphadenopathy, supple and no JVD General: Negative for tenderness Chest Wall inspection of chest normal and palpation of chest normal Chest: Negative for tenderness Resp normal respiratory effort and clear to auscultation bilaterally Effort and Inspection: Negative for respiratory distress or pain with movement Auscultation: Negative for rhonchi, wheezes or diminished lung sounds Cardio regular rate, regular rhythm, S1 normal heart sound, S2 normal heart sound and no murmurs Peripheral Pulses: pulses 2+ throughout GI normal to inspection, nondistended, normoactive bowel sounds, soft to palpation, non-tender, non-distended and no masses GI Narrative: Rectal exam performed showed bright red and maroon type colored stool. No masses palpated in the rectal vault. Back/Spine no CVA tenderness and no thoracic nor lumbar tenderness Extremity normal to inspection General Extremety ED: Negative for edema General Extremity: Negative for edema Neuro oriented x3, CN's II-XII intact bilaterally, no sensory deficits noted and gait normal Sensorium / Orientation: awake, alert, oriented to person, oriented to place and oriented to time Motor Exam: strength 5/5 throughout and strength abnormal Psych mental status grossly normal Skin no rashes or lesions noted and no wounds MDM MDM MDM Narrative Medical decision making narrative: Patient presents with anemia and generalized weakness. Clinically she appears pale. She has bright red blood on exam of her stool. IV line will be established. Patient was typed and crossed for 2 units packed red cells. Patient case discussed with GI on-call Dr. Salazar. Discussed with hospitalist to evaluate patient for admission. Lab Data Attestation: I reviewed the patient's lab results. Labs: Laboratory Results - last 24 hr 11/06/22 11/06/22 13:15 13:45 WBC 7.2 RBC 2.46 L Hgb 5.7 L* Hct 19.7 L MCV 80.1 L MCH 23.2 L MCHC 28.9 L RDW Std Deviation 45.0 H RDW Coeff of Nicci 15.3 H Plt Count 250 MPV 9.7 Immature Gran % (Auto) 0.400 Neut % (Auto) 74.4 H Lymph % (Auto) 16.6 L [place] % (Auto) 7.4 Eos % (Auto) 0.4 Baso % (Auto) 0.8 Absolute Neuts (auto) 5.3 Absolute Lymphs (auto) 1.19 Nucleated RBC % 1.8 Differential Comment SCANNED Diff Path Review May foll Polychromasia 1+ Hypochromasia 1+ Anisocytosis 2+ Microcytosis 1+ Macrocytosis 1+ Ovalocytes RARE Sodium 136 Potassium 4.1 Chloride 104 Carbon Dioxide 24.0 Anion Gap 8 BUN 33 H Creatinine 1.51 H Estim Creat Clear Calc 18.85 Est GFR (MDRD) Af Amer 42 L Est GFR (MDRD) Non-Af 35 L BUN/Creatinine Ratio 21.9 H Glucose 169 H Lactic Acid 2.5 H* Calcium 9.1 Crossmatch See Detail Discharge Plan Triage Chief Complaint: GI Bleed Other Complaint: Abn Labs Shortness of Breath ED Provider: Elvin Nichols Dx/Rx/DC Orders Clinical Impression: Anemia, Weakness, History of atrial fibrillation, Acute lower gastrointestinal bleeding Prescriptions: No Action acetaminophen [Tylenol Extra Strength] 500 mg tablet 500 mg PO Q6H PRN (Reason: Pain) cranberry 400 mg capsule 400 mg PO DAILY cholecalciferol (vitamin D3) 50 mcg (2,000 unit) tablet 1,000 unit PO DAILY (DME) Handicapped Placard Qty: 1 0RF Rx Instructions: As directed; Good from 01/12/2019-01/13/2024 furosemide 40 mg tablet 20 mg PO DAILY aspirin 81 MG tablet,chewable 81 mg PO DAILY@0800 biotin 1 MG capsule 0.5 mg PO WE Lactobacillus acidophilus 1 EACH tablet 1 ea PO DAILY levothyroxine 75 mcg tablet 75 mcg PO DAILY multivitamin Tablet 1 tab PO DAILY sertraline 25 mg tablet 25 mg PO DAILY Patient Comments: TAKE 1 TABLET BY MOUTH EVERY DAY propranolol 120 mg capsule,extended release 24hr 120 mg PO QDAY Qty: 90 4RF Eliquis 5 mg tablet 5 mg PO BID Qty: 180 3RF amlodipine 5 mg tablet 5 mg PO DAILY Qty: 90 3RF lisinopril 20 mg tablet 20 mg PO BID Qty: 180 3RF Primary Care Provider: Nusrat Ballesteros Referrals: Nusrat Ballesteros, COPY WORKER-C [Primary Care Provider] - Disposition Disposition: Acute Care Hospital [facility]
[2022-11-06 13:54] LABS: Absolute Lymphocyte Count 1.19 X10^3/uL (0.83-4.51); Absolute Neutrophil Count 5.3 X10^3/uL (2.0-7.7); Basophil# 0.06 X10^3/uL; Basophil% 0.8 % (0-1); Eosinophil# 0.03 X10^3/uL; Eosinophils% 0.4 % (0-5); Hematocrit 19.7 % (37-47); Lymphocyte # 1.19 X10^3/ul (0.83-4.51); Lymphocyte % 16.6 % (19-41); Mean Corp Hgb Conc 28.9 g/dL (32-36); Mean Corpuscular Hgb 23.2 pg (27.0-32.0); Mean Corpuscular Volume 80.1 fL (81-99); Mean Platelet Vol. 9.7 fl (6.2-12.0); Monocyte# 0.53 X10^3/uL; Monocyte% 7.4 % (0-10); NRBC Flagged by Analyzer 1.8 % (0-5); Neutrophil # 5.32 X10^3/uL (2.7-7.7); Neutrophil % 74.4 % (47-70); POSITIVE COUNT YES; Platelet Count 250 K/mm3 (150-450); RBC Distribution Width CV 15.3 % (11.6-14.6); Red Blood Count 2.46 M/mm3 (4.2-5.4); White Blood Count 7.2 K/mm3 (4.4-11.0)
[2022-11-06] MEDS: 0.9% Normal Saline (1000mL) 1,000 ML 125 ML IV (13:56)
[2022-11-06 14:00] LABS: Differential Indicated SCAN CRITERIA MET; Hemoglobin 5.7 g/dL (12.0-15.0)
[2022-11-06 14:07] LABS: Anion Gap 8 (5-15); BUN 33 mg/dL (7-18); BUN/Creat Ratio 21.9 RATIO (10-20); Calcium,Total 9.1 mg/dL (8.5-10.1); Chloride 104 mmol/L (98-107); Creatinine, Serum 1.51 mg/dL (0.55-1.02); EST Glomerular Filtration Rate 35 mL/min (>60); Est Glom Filt Rate - Afr Amer 42 mL/min (>60); Estimated Creatinine Clearance 18.85 ml/min; Glucose 169 mg/dL (74-106); Potassium 4.1 mmol/L (3.5-5.1); Sodium Level 136 mmol/L (136-145)
[2022-11-06 14:14] LABS: Differential Comment SCANNED
[2022-11-06 14:15] LABS: Anisocytosis 2+; Macrocytosis 1+
[2022-11-06 14:16] LABS: Hypochromasia 1+; Microcytosis 1+; Ovalocyte RARE; Polychromasia 1+
[2022-11-06 14:28] LABS: Lactic Acid 2.5 mmol/L (0.4-1.9)
--- NOTE | 2022-11-06 14:32 | PCM.HP.STD ---
HPI - General General Date of Admission: 11/06/22 Date of Service: 11/06/22 Chief Complaint: Fatigued, weak, blood in her stools. HPI Narrative The patient is an 86 y/o F w/ PMHx: CKD stage III unclear subtype, Essential tremor, HTN, HLD, PAF on eliquis, Hypothyroidism, IBS, RLS, Valvular heart disease, Anxiety and depression who presents to the [facility] ED on 11/06/22 with history of PCP evaluation on day of presentation with outpatient labs obtained and significantly low hemoglobin resulting of 5.7 with patient reporting intermittent blood in her stool which she had felt was potentially related to irritable bowel syndrome specifically on Eliquis as noted for history of A-fib however she has been more weak and fatigued over the last week prompting eventual ED evaluation. She denies any significant associated abdominal plain or black tarry stools. She notes the blood in her stool has been ongoing intermittently for weeks of note. Patient also reports shortness of breath associated worse with exertion or activity attempts. She denies any lightheadedness or dizziness. Prior to ED presentation outpatient PCP lab work-up included CBC with WBC 7.3, hemoglobin 5.7, MCV 80.6, platelet 259 without marked shift, CMP with sodium 135, BUN/creatinine 31/1.57, glucose 161 otherwise hepatic profile not marked appearing, FLP with triglycerides 67, total cholesterol 105, LDL 50, VLDL 13, HDL 42. Current ED presentation with work-up including T97.5, heart rate 63, BP 137/63, respiratory rate 18, 100% on room air, CBC with WBC 7.2, hemoglobin 5.7, MCV 80.1, platelet 250 without marked shift, CMP with BUN/creatinine 33/1.51, glucose 169, lactic acid 2.5, type and cross initiated per ED physician. ED discussed case with Dr. Salazar who will evaluate. [facility] Medical History Atrial enlargement, bilateral Atrial fibrillation Bundle branch block Carpal tunnel syndrome Cataract Diastolic dysfunction Essential hypertension Essential tremor Exertional chest pain Fibromyalgia Hyperlipidemia Hypertension Hypothyroidism Irritable bowel syndrome Left bundle branch block Nonrheumatic mitral (valve) insufficiency Nonrheumatic mitral (valve) stenosis Osteoarthritis Persistent atrial fibrillation Restless leg syndrome Sjogren's disease Tubal ligation evaluation Valvular heart disease Home Medications Lactobacillus acidophilus 2 billion cell tablet 1 ea PO DAILY 02/26/13 [History Last Taken Unknown] aspirin 81 mg chewable tablet 81 mg PO DAILY@0800 02/26/13 [History Last Taken 04/09/13] biotin 1 mg capsule 0.5 mg PO WE 02/26/13 [History Last Taken Unknown] acetaminophen 500 mg tablet (Tylenol Extra Strength) 500 mg PO Q6H PRN Pain 05/19/17 [History Last Taken Unknown] cranberry 400 mg capsule 400 mg PO DAILY 04/13/18 [History Last Taken Unknown] Handicapped Placard #1 ea 01/12/19 [Rx Last Taken Unknown] cholecalciferol (vitamin D3) 50 mcg (2,000 unit) tablet 1,000 unit PO DAILY 04/19/19 [History Last Taken Unknown] propranolol 120 mg capsule,extended release 24 hr 120 mg PO QDAY #90 caps 10/24/21 [Rx Last Taken Unknown] multivitamin 1 tab PO DAILY 12/16/21 [History Last Taken Unknown] furosemide 40 mg tablet 20 mg PO DAILY 04/10/22 [History Last Taken Unknown] levothyroxine 75 mcg tablet 75 mcg PO DAILY 04/10/22 [History Last Taken Unknown] apixaban 5 mg tablet (Eliquis) 5 mg PO BID #180 tabs 04/12/22 [Rx Last Taken Unknown] sertraline 25 mg tablet 25 mg PO DAILY 04/15/22 [History Last Taken Unknown] amlodipine 5 mg tablet 5 mg PO DAILY #90 tabs 04/16/22 [Rx Last Taken Unknown] lisinopril 20 mg tablet 20 mg PO BID #180 tabs 04/29/22 [Rx Last Taken Unknown] Allergy/AdvReac Type Severity Reaction Status Date / Time No Known Allergies Allergy Verified 11/06/22 13:05 Family History Daughter Thyroid disorder Son Hypertension Son Spine degeneration Son Hypertension Tremors of nervous system Sister Arthritis Sister Cancer, Onset Age: 50 cervical Brother Arthritis Mother Hypertension CVA (cerebral vascular accident) Father Hx of syphilis Grandfather No problems noted. Grandmother , unknown causes No problems noted. Surgical History H/O tubal ligation History of arthroplasty History of bilateral cataract extraction History of carpal tunnel release Hx of appendectomy Social History Smoking Status: Never smoker alcohol intake: never substance use type: does not use caffeine: No what type of physical activity do you participate in: none seatbelt use: always do you feel safe at home: Yes ROS ROS Narrative Admission Review of Systems: CONSTITUTIONAL: No weight loss, fever, chills, + weakness or fatigue. HEENT: Eyes: No visual loss, blurred vision, double vision or yellow sclerae. Ears, Nose, Throat: No hearing loss, sneezing, congestion, runny nose or sore throat. SKIN: No rash or itching, lesions, wounds. CARDIOVASCULAR: No chest pain, chest pressure or chest discomfort, palpitations, edema, orthopnea, syncopal events. RESPIRATORY: + Shortness of breath. No cough or sputum, wheezing, hemoptysis. GASTROINTESTINAL: + Intermittent BRB in her stools with no melanotic appearing stools. No anorexia, nausea, vomiting or diarrhea, abdominal pain. GENITOURINARY: No dysuria, frequency, urgency or retention. NEUROLOGICAL: + Generalized weakness, chronic essential tremor. No headache, dizziness, syncope, paralysis, ataxia, numbness or tingling in the extremities, focal weakness, change in bowel or bladder control, seizure. MUSCULOSKELETAL: No muscle, back pain, joint pain or stiffness. HEMATOLOGIC:+ anemia, bleeding, easy bruising. LYMPHATICS: No enlarged nodes. No history of splenectomy. PSYCHIATRIC: + history of depression or anxiety. ENDOCRINOLOGIC: No reports of sweating, cold or heat intolerance. No polyuria or polydipsia. ALLERGIES: No history of asthma, hives, eczema or rhinitis. Vital Signs Vital Signs Vital Signs: 11/06/22 13:05 11/06/22 13:55 Temperature 97.5 F L Temperature Source Temporal Pulse Rate 63 Respiratory Rate 18 Respiratory Effort Normal Non-Labored Respiratory Pattern Normal Blood Pressure 137/63 H Blood Pressure Mean 87 Pulse Ox 100 Oxygen Delivery Method Room Air Weight Weight: 149 lb 1.6 oz Body Mass Index (BMI) 29.1 Physical Exam Narrative Physical Examination: General: Awake, alert, oriented x 3 and cooperative, seated upright in ED bed, fatigued appearing otherwise no acute distress. Skin: Pale color, normal turgor, no icterus, no cyanosis. HEENT: AT/NC, EOMI, PERRLA, moderately dry MM, no carotid bruits or JVD noted. Lungs: Diminished, greater bases, proper effort, no rales, ronchi or wheezing. Heart: Mildly bradycardic; no gallop, rub audible, + SM. Abdomen: Soft, obese, NTTP, ND, hyperactive BS, no HSM. Extremities: No cyanosis, no clubbing, pedal to mid murillo not markedly pitting edema which is chronic she notes. Neurological: Patient awake, alert, oriented as noted, cognitive function intact; pupils equally reactive to light and accommodation, cranial nerves II-XII grossly normal, moving all 4 extremities, no focal deficits, strength moderately to severely globally decreased secondary to acute presentation. Psychiatric: Affect appears fatigued otherwise normal and interactive, no acute evidence of depressive or anxiety feelings. Results Lab / Micro Data 11/06/22 13:15 11/06/22 13:15 Labs: Laboratory Results - last 24 hr 11/06/22 13:15: WBC 7.2, RBC 2.46 L, Hgb 5.7 L*, Hct 19.7 L, MCV 80.1 L, MCH 23.2 L, MCHC 28.9 L, RDW Std Deviation 45.0 H, RDW Coeff of Nicci 15.3 H, Plt Count 250, MPV 9.7, Immature Gran % (Auto) 0.400, Neut % (Auto) 74.4 H, Lymph % (Auto) 16.6 L, [place] % (Auto) 7.4, Eos % (Auto) 0.4, Baso % (Auto) 0.8, Absolute Neuts (auto) 5.3, Absolute Lymphs (auto) 1.19, Nucleated RBC % 1.8, Differential Comment SCANNED, Diff Path Review May foll, Polychromasia 1+, Hypochromasia 1+, Anisocytosis 2+, Microcytosis 1+, Macrocytosis 1+, Ovalocytes RARE, Sodium 136, Potassium 4.1, Chloride 104, Carbon Dioxide 24.0, Anion Gap 8, BUN 33 H, Creatinine 1.51 H, Estim Creat Clear Calc 18.85, Est GFR (MDRD) Af Amer 42 L, Est GFR (MDRD) Non-Af 35 L, BUN/Creatinine Ratio 21.9 H, Glucose 169 H, Calcium 9.1, Crossmatch See Detail 11/06/22 13:45: Lactic Acid 2.5 H* Assessment & Plan Assessment/Plan (1) GI bleed: PLAN: Plan The patient is an 86 y/o F w/ PMHx: CKD stage III unclear subtype, Essential tremor, HTN, HLD, PAF on eliquis, Hypothyroidism, IBS, RLS, Valvular heart disease, Anxiety and depression who presents to the [facility] ED on 11/06/22 with history of PCP evaluation on day of presentation with outpatient labs obtained and significantly low hemoglobin resulting of 5.7 with patient reporting intermittent blood in her stool which she had felt was potentially related to irritable bowel syndrome specifically on Eliquis as noted for history of A-fib however she has been more weak and fatigued over the last week prompting eventual ED evaluation. #1. Acute GI Bleed w/ resultant Acute Blood Loss Anemia w/ associated lactic acidosis: Outside physician CBC on day of presentation with hemoglobin 5.7, MCV 80.6, admission Hgb repeat in the ED confirmatory with hemoglobin 5.7, last prior to this noted 04/15/22 Hgb 12.6 with baseline primarily 13, will admit to MS telemetry given stable VS, maintain on IVFs, will continue 2 unit PRBC initiated in the ED with serial H+H assessments ongoing, maintain on IV PPI, clearns until midnight then NPO, judicious hydration until PRBC available, will pulse dose IV lasix x 1 in between, GI consulted, Dr. Salazar. #2. Acute Renal Insufficiency on Chronic Kidney Disease Stage III, unclear subtype: Prior to presentation on same day of admission BUN/Cr 41/1.57, repeat in the ED admission BUN/creatinine 33/1.51, baseline renal function appears primarily 0.9-1.2, last noted previous to current day 08/13/2022 creatinine 1.18, will judiciously hydrate and continue treatment as noted #1, repeat CMP in AM. If worsens would hold nephrotoxic medications. #3. Hyperglycemia: Recent on day of presentation prior to ED evaluation glucose 161 with repeat in the ED 169, possibly stress response with her acute presentation however be cautious will obtain hemoglobin A1c. #4. Valvular heart disease: 04/28/2019 echocardiogram with normal LV systolic function, EF 60%, mild concentric LVH, severely enlarged LA and RA, mild MVI, moderate TVI, trivial PVI, RVSP 33 mmHg with inability to assess diastolic dysfunction. #5. PAF: We will continue patient home propranolol with hold parameters as needed, holding Eliquis given concern as noted #1. #6. Hypertension: Continue home regimen including lisinopril, amlodipine, Lasix, propranolol with hold parameters given presentation as noted, PRN hydralazine. #7. Hyperlipidemia: Not on regimen, defer to outpatient. #8. Hypothyroidism: We will continue patient home levothyroxine regimen. #9. Essential tremor: We will continue patient home propranolol regimen. #10. Restless leg syndrome: From current list not on regimen but clarifying, will continue if appropriate. #11. Anxiety and depression: We will continue patient home low-dose sertraline regimen. #12. DVT prophylaxis: SCDs. #13. CODE status: Patient MIRIAM is her son who is present and living will is currently in place. Discussed CODE status at length including difference between FULL code, DNR-CCA and DNR-CC status. Following discussions about the differences in these status, requested DNR-CCA, no intubation status. Her and her son have discussed these items per discussion with them both. She is amenable to GI intervention. Advanced Care Planning Face to Face Time: 16 minutes. Charges/Coding Visit Charges Inpatient E&M: 66357 Init Hosp L3 Procedures Hospitalists Procedures: 44516 Advncd Care Plan 30 Min
[2022-11-06] MEDS: 0.9% Normal Saline (1000mL) 1,000 ML 75 ML IV (17:46)
[2022-11-06] MEDS: Pantoprazole Sodium 40 MG in 0.9% Normal Saline (100mL MB+) 100 ML 330 MG IV ×2 (17:46→22:50)
[2022-11-06 17:52] LABS: Reflex Lactate? Y
[2022-11-06 18:46] LABS: Lactic Acid 1.6 mmol/L (0.4-1.9)
[2022-11-06] MEDS: 0.9% Saline Lock 10 ML Syringe IV (19:03)
[2022-11-06] MEDS: Menthol/Lanolin/Calamine/Znox 113 GM Tube 1 APPLIC TOPICAL (22:47)
--- NOTE | 2022-11-06 23:00 | EX.PCM.CON.G ---
HPI Consult Data Date of Consult: 11/07/22 HPI Narrative Reason for Consultation: GI bleed and anemia HPI Narrative: HAO STARKS, is a 86 F who presents to the emergency department at the request of her primary care physician for concern about anemia and GI bleed. Patient had blood work done this morning and was contacted and told to come to the ER because her hemoglobin was 5.7. Patient states that she has had off-and-on blood in her stool and she thought it was related to her irritable bowel syndrome. Patient on apixaban for history of A-fib. She does describe some generalized weakness especially over the last week or so. She denies any abdominal pain. She is never had a blood transfusion. She denies black stool. She denies urinary symptoms. She has a past medical history of non-CAD related cardiomyopathy, valvular heart disease, atrial fibrillation, hyperlipidemia, and hypertension. The patient denies symptoms considered classic for angina pectoris, CHF / pulmonary edema (with respect to orthopnea / PND), ongoing palpitations, or near syncope / syncope. The patient denies ongoing peripheral pitting edema. [facility] Medical History Atrial enlargement, bilateral Atrial fibrillation Bundle branch block Carpal tunnel syndrome Cataract Diastolic dysfunction Essential hypertension Essential tremor Exertional chest pain Fibromyalgia Hyperlipidemia Hypertension Hypothyroidism Irritable bowel syndrome Left bundle branch block Nonrheumatic mitral (valve) insufficiency Nonrheumatic mitral (valve) stenosis Osteoarthritis Persistent atrial fibrillation Restless leg syndrome Sjogren's disease Tubal ligation evaluation Valvular heart disease Home Medications Lactobacillus acidophilus 2 billion cell tablet 1 ea PO DAILY probiotic 02/26/13 [History Last Taken 11/06/22] aspirin 81 mg chewable tablet 81 mg PO DAILY@0800 heart 02/26/13 [History Last Taken 04/09/13] acetaminophen 500 mg tablet (Tylenol Extra Strength) 500 mg PO Q6H PRN Pain 05/19/17 [History Last Taken 11/06/22] cranberry 400 mg capsule 400 mg PO DAILY bladd 04/13/18 [History Last Taken Unknown] Handicapped Placard #1 ea 01/12/19 [Rx Last Taken Unknown] cholecalciferol (vitamin D3) 50 mcg (2,000 unit) tablet 50 mcg PO DAILY supplement 04/19/19 [History Last Taken 11/06/22] propranolol 120 mg capsule,extended release 24 hr 120 mg PO QDAY #90 caps 10/24/21 [Rx Last Taken 11/06/22] furosemide 40 mg tablet 40 mg PO DAILY HTN 04/10/22 [History Last Taken 11/06/22] levothyroxine 75 mcg tablet 75 mcg PO DAILY hypothyroid 04/10/22 [History Last Taken 11/06/22] apixaban 5 mg tablet (Eliquis) 5 mg PO BID #180 tabs 04/12/22 [Rx Last Taken 11/06/22] sertraline 25 mg tablet 25 mg PO DAILY sleep 04/15/22 [History Last Taken Unknown] amlodipine 5 mg tablet 5 mg PO DAILY #90 tabs 04/16/22 [Rx Last Taken 11/05/22] alprazolam 0.25 mg tablet (Xanax) 0.125 mg PO QHS sleep 11/06/22 [History Last Taken Unknown] lisinopril 20 mg tablet 40 mg PO BID HTN 11/06/22 [History Last Taken 11/06/22] Allergy/AdvReac Type Severity Reaction Status Date / Time No Known Allergies Allergy Verified 11/06/22 13:05 Family History Daughter Thyroid disorder Son Hypertension Son Spine degeneration Son Hypertension Tremors of nervous system Sister Arthritis Sister Cancer, Onset Age: 50 cervical Brother Arthritis Mother Hypertension CVA (cerebral vascular accident) Father Hx of syphilis Grandfather No problems noted. Grandmother , unknown causes No problems noted. Surgical History H/O tubal ligation History of arthroplasty History of bilateral cataract extraction History of carpal tunnel release Hx of appendectomy Social History Smoking Status: Never smoker alcohol intake: never substance use type: does not use caffeine: No what type of physical activity do you participate in: none seatbelt use: always do you feel safe at home: Yes ROS ROS Narrative Admission Review of Systems: CONSTITUTIONAL: No weight loss, fever, chills, + weakness or fatigue. HEENT: Eyes: No visual loss, blurred vision, double vision or yellow sclerae. Ears, Nose, Throat: No hearing loss, sneezing, congestion, runny nose or sore throat. SKIN: No rash or itching, lesions, wounds. CARDIOVASCULAR: No chest pain, chest pressure or chest discomfort, palpitations, edema, orthopnea, syncopal events. RESPIRATORY: + Shortness of breath. No cough or sputum, wheezing, hemoptysis. GASTROINTESTINAL: + Intermittent BRB in her stools with no melanotic appearing stools. No anorexia, nausea, vomiting or diarrhea, abdominal pain. GENITOURINARY: No dysuria, frequency, urgency or retention. NEUROLOGICAL: + Generalized weakness, chronic essential tremor. No headache, dizziness, syncope, paralysis, ataxia, numbness or tingling in the extremities, focal weakness, change in bowel or bladder control, seizure. MUSCULOSKELETAL: No muscle, back pain, joint pain or stiffness. HEMATOLOGIC:+ anemia, bleeding, easy bruising. LYMPHATICS: No enlarged nodes. No history of splenectomy. PSYCHIATRIC: + history of depression or anxiety. ENDOCRINOLOGIC: No reports of sweating, cold or heat intolerance. No polyuria or polydipsia. ALLERGIES: No history of asthma, hives, eczema or rhinitis. Physical Exam Narrative Physical Examination: General: Awake, alert, oriented x 3 and cooperative, seated upright in ED bed, fatigued appearing otherwise no acute distress. Skin: Pale color, normal turgor, no icterus, no cyanosis. HEENT: AT/NC, EOMI, PERRLA, moderately dry MM, no carotid bruits or JVD noted. Lungs: Diminished, greater bases, proper effort, no rales, ronchi or wheezing. Heart: Mildly bradycardic; no gallop, rub audible, + SM. Abdomen: Soft, obese, NTTP, ND, hyperactive BS, no HSM. Extremities: No cyanosis, no clubbing, pedal to mid murillo not markedly pitting edema which is chronic she notes. Neurological: Patient awake, alert, oriented as noted, cognitive function intact; pupils equally reactive to light and accommodation, cranial nerves II-XII grossly normal, moving all 4 extremities, no focal deficits, strength moderately to severely globally decreased secondary to acute presentation. Psychiatric: Affect appears fatigued otherwise normal and interactive, no acute evidence of depressive or anxiety feelings. Lab / Micro Data 11/07/22 05:52 11/07/22 05:52 Labs: Laboratory Results - last 24 hr 11/06/22 13:15: WBC 7.2, RBC 2.46 L, Hgb 5.7 L*, Hct 19.7 L, MCV 80.1 L, MCH 23.2 L, MCHC 28.9 L, RDW Std Deviation 45.0 H, RDW Coeff of Nicci 15.3 H, Plt Count 250, MPV 9.7, Immature Gran % (Auto) 0.400, Neut % (Auto) 74.4 H, Lymph % (Auto) 16.6 L, [place] % (Auto) 7.4, Eos % (Auto) 0.4, Baso % (Auto) 0.8, Absolute Neuts (auto) 5.3, Absolute Lymphs (auto) 1.19, Nucleated RBC % 1.8, Differential Comment SCANNED, Diff Path Review May foll, Polychromasia 1+, Hypochromasia 1+, Anisocytosis 2+, Microcytosis 1+, Macrocytosis 1+, Ovalocytes RARE, Sodium 136, Potassium 4.1, Chloride 104, Carbon Dioxide 24.0, Anion Gap 8, BUN 33 H, Creatinine 1.51 H, Estim Creat Clear Calc 18.85, Est GFR (MDRD) Af Amer 42 L, Est GFR (MDRD) Non-Af 35 L, BUN/Creatinine Ratio 21.9 H, Glucose 169 H, Calcium 9.1, Blood Type A POSITIVE, Antibody Screen NEGATIVE, Crossmatch See Detail 11/06/22 13:45: Lactic Acid 2.5 H* 11/06/22 18:11: Lactic Acid 1.6 11/07/22 02:05: Hgb 8.2 L, Hct 26.3 L 11/07/22 05:52: WBC 7.9, RBC 3.40 L, Hgb 8.3 L, Hct 26.8 L, MCV 78.8 L, MCH 24.4 L, MCHC 31.0 L D, RDW Std Deviation 43.7, RDW Coeff of Nicci 15.3 H, Plt Count 220, MPV 9.5, Immature Gran % (Auto) 0.500, Neut % (Auto) 72.0 H, Lymph % (Auto) 15.0 L, [place] % (Auto) 10.2 H, Eos % (Auto) 1.5, Baso % (Auto) 0.8, Absolute Neuts (auto) 5.7, Absolute Lymphs (auto) 1.19, Nucleated RBC % 2.9, Sodium 138, Potassium 3.6, Chloride 108 H, Carbon Dioxide 22.0, Anion Gap 8, BUN 28 H, Creatinine 1.37 H, Estim Creat Clear Calc 20.78, Est GFR (MDRD) Af Amer 47 L, Est GFR (MDRD) Non-Af 39 L, BUN/Creatinine Ratio 20.4 H, Glucose 114 H, Hemoglobin A1c 5.7 H, Calcium 9.1, Total Bilirubin 4.70 H, AST 14 L, ALT 17, Alkaline Phosphatase 61, Total Protein 6.5, Albumin 3.6, Globulin 2.9, Albumin/Globulin Ratio 1.2 Assessment & Plan Assessment/Plan (1) GI bleed: PLAN: Plan The patient is an 86 y/o F with CKD stage III ,Valvular heart disease, Anxiety and depression who presents to the [facility] ED on 11/06/22 with history of PCP evaluation on day of presentation with outpatient labs obtained and significantly low hemoglobin resulting of 5.7. She is on Eliquis as noted for history of A-fib however she has been more weak and fatigued over the last week prompting eventual ED evaluation. Possible acute GI Bleed w/ resultant Acute Blood Loss Anemia w/ associated lactic acidosis: Outside physician CBC on day of presentation with hemoglobin 5.7, MCV 80.6, admission Hgb repeat in the ED confirmatory with hemoglobin 5.7, last prior to this noted 04/15/22 Hgb 12.6. Differential diagnosis is upper GI bleed greater than lower GI bleed. She should undergo an upper endoscopy and if negative she may need a colonoscopy. She was explained alternatives, risk, benefits including understanding bleeding, infection, sepsis, perforation, need for discharge and . She have an ASA of 3. Charges/Coding Visit Charges Inpatient E&M: 95007 Init Hosp L3
[2022-11-06] MEDS: Furosemide 20 MG/2 ML VIAL IV (23:44)
[2022-11-07] VITALS (15 sets, daily range): BP systolic 105–152; BP diastolic 49–123; PULSE 62–97; RESP 12–20; TEMP 36.5–37.1; O2SAT 92–96; BMI 28.0; BMI 28.6
[2022-11-07 02:12] LABS: Hematocrit 26.3 % (37-47); Hemoglobin 8.2 g/dL (12.0-15.0)
--- NOTE | 2022-11-07 05:55 | EKG12_ITS ---
Test Reason : AM Blood Pressure : / mmHG Vent. Rate : 064 BPM Atrial Rate : 000 BPM P-R Int : 000 ms QRS Dur : 138 ms QT Int : 446 ms P-R-T Axes : 000 -76 178 degrees QTc Int : 460 ms Atrial fibrillation Left axis deviation Non-specific intra-ventricular conduction block Inferior infarct , age undetermined Anterolateral infarct (cited on or before 15-APR-2022) Abnormal ECG When compared with ECG of 15-APR-2022 18:06, Nonspecific T wave abnormality now evident in Lateral leads Confirmed by BRIE SHCAEFER, ALLEN ([id number]), design editor CIRILO CHENG ([id number]) on 11/27/2022 1:45:28 PM Referred By: Confirmed By:ALLEN BAIRD MD
[2022-11-07 06:08] LABS: Absolute Lymphocyte Count 1.19 X10^3/uL (0.83-4.51); Absolute Neutrophil Count 5.7 X10^3/uL (2.0-7.7); Basophil# 0.06 X10^3/uL; Basophil% 0.8 % (0-1); Eosinophil# 0.12 X10^3/uL; Eosinophils% 1.5 % (0-5); Hematocrit 26.8 % (37-47); Hemoglobin 8.3 g/dL (12.0-15.0); Lymphocyte # 1.19 X10^3/ul (0.83-4.51); Mean Corpuscular Hgb 24.4 pg (27.0-32.0); Mean Corpuscular Volume 78.8 fL (81-99); Mean Platelet Vol. 9.5 fl (6.2-12.0); Monocyte# 0.81 X10^3/uL; Monocyte% 10.2 % (0-10); NRBC Flagged by Analyzer 2.9 % (0-5); Platelet Count 220 K/mm3 (150-450); RBC Distribution Width CV 15.3 % (11.6-14.6); RBC Distribution Width SD 43.7 fl (35.1-43.9); White Blood Count 7.9 K/mm3 (4.4-11.0)
[2022-11-07 07:18] LABS: ALB/GLOB Ratio 1.2 RATIO (0.9-2.4); AST(SGOT) 14 U/L (15-37); Alanine Aminotransfer ALT/SGPT 17 U/L (13-56); Albumin, Serum 3.6 g/dL (3.2-5.0); Alkaline Phosphatase 61 U/L (45-117); Anion Gap 8 (5-15); BUN 28 mg/dL (7-18); BUN/Creat Ratio 20.4 RATIO (10-20); Calcium,Total 9.1 mg/dL (8.5-10.1); Chloride 108 mmol/L (98-107); Creatinine, Serum 1.37 mg/dL (0.55-1.02); EST Glomerular Filtration Rate 39 mL/min (>60); Est Glom Filt Rate - Afr Amer 47 mL/min (>60); Estimated Creatinine Clearance 20.78 ml/min; Globulin 2.9 g/dL (2.2-4.2); Glucose 114 mg/dL (74-106); Potassium 3.6 mmol/L (3.5-5.1); Protein, Total 6.5 g/dL (6.4-8.2); Sodium Level 138 mmol/L (136-145)
[2022-11-07 08:39] LABS: Hemoglobin A1c 5.7 % (3.8-5.6)
[2022-11-07] MEDS: Propranolol LA 60 MG Capsule 120 MG PO (08:39)
[2022-11-07] MEDS: amLODIPine 5 MG Tablet PO (08:39)
[2022-11-07] MEDS: Furosemide 20 MG Tablet PO (08:39)
[2022-11-07] MEDS: Lisinopril 20 MG Tablet PO ×2 (08:39→21:23)
[2022-11-07] MEDS: Pantoprazole Sodium 40 MG in 0.9% Normal Saline (100mL MB+) 100 ML 330 MG IV ×2 (10:08→21:25)
--- NOTE | 2022-11-07 10:35 | CASEMGMT ---
RN CM NOTE: RN CM to room to complete initial RN CM assessment. Therapy working w/pt. RN CM to atttempt at a later time. Trey BSN RN CM
--- NOTE | 2022-11-07 11:30 | CASEMGMT ---
RN?CM?WAITER/WAITRESS?CM?to room to meet with patient for initial transition planning/care coordination?assessment.?RN?CM?introduced self and role at [facility].? Pt voices understanding and consents to?assessment?at this time.? Pt sitting up in chair in room in no distress at this time.? Son, Stephane, @ bedside and pt agreeable to him being present during assessment. Pt is A/O at this time and answers all questions appropriately.?? Care providers, pharmacy, and demographics verified/updated at this time. PCP: Nusrat Ballesteros Specialists: [facility]/cardiology Preferred Pharmacy: [facility] Retail Insurance: [facility], AARP Prescription Benefit:?yes Living Will/HPOA:?Has both LW and HCPOA, who is her son, Stephane, as agent and son, Binu, as alternative. Stephane made aware these are not on file @ [facility] and that only the Durable POA is. He states he can bring those documents in to be placed on pt's chart. LNOK: Pt has 4 sons and 2 dtr's. Son, Stephane, is HCPOA. Binu is 1st alternative Living Arrangements: Lives alone in one-story home w/no steps to enter. Independent w/ADL's and IADL's, gets her own groceries (usually curb-side pick-up @ [employer]). Transportation:?Pt states drives self and states no transportation concerns at this time.?Son, Stephane, will take her home @ discharge DME: ?States has the following DME:?high-rise toilet, built-in shower seat, walker, medical alert. ?Pt states no need for further DME at this time.? HHC/SNF: No hx of SNF. Has had [facility] in the past. Pt is hoping she will be able to discharge home and would like [facility] again. She states, if she not strong enough to return home, she thinks her 1st preference of SNF would be [facility], but she would take a list to review, just in case. Provided w/list of SNF's that was prepared by finished goods plannerGrace. Call to Meka @ [facility] and referral made. She states they are able to accept pt w/SOC Friday. This was entered in discharge plan. Pt and son made aware they can accept. Pt wishes to return home, if able, and states has no concerns with going home at time of discharge.? CM?to follow for any further discharge planning/needs.? Pt and son voice no further concerns/needs at this time.? Advised them to ask for?CM?if any further questions/concerns/needs arise.? They voice understanding. PLAN:??Home w/[facility]. Trey BSN?RN?CM
--- NOTE | 2022-11-07 11:32 | CASEMGMT ---
Discharge Planning A list of SNF providers including quality and resource use data and consistent with the patient?s preferred geographic region, medical needs, and insurance network was created in [facility] Guide. This list was provided to the RN CM. Grace Yi, Discharge Planning Asst.
--- NOTE | 2022-11-07 14:00 | EGD_PTH ---
PATIENT: HAO STARKS LOC: [facility] U#:[id number] AGE/SX: 87/F ROOM: [facility] RE11/06/[address]: Dr. Rachel Winters MD : 1935 BED: 1 DIS: 11/09/2022 SPEC #: [id number] RECD: 11/07/22 16:21 STATUS: DORCAS ROXANNE #: [id number] SALVATORE: 11/07/22 14:[address]: Sami Salazar DEPT: SURGICAL PATHOLOGY RECD BY: Manisha Sanchez ENTERED: 11/08/22 07:30 SP TYPE: EGD BIOPSY OTHR DR: MD Dr. Rachel Garnett MD Carolyn Graham, LENS EDGER-C Tissues: Gastric mucous membrane Procedures: Surgery Specimen Level IV HEADER OPERATION: EGD, biopsy PRE-OP DIAGNOSIS: GI bleed TISSUE SUBMITTED: Antrum biopsy for histo and H. pylori MICROSCOPIC DIAGNOSIS Antrum, biopsy: Mild gastritis. See microscopic description and comment. VAN:brenna 11/11/2022 COMMENT The results of immunohistochemistry for Helicobacter pylori will be reported separately ([id number]). MICROSCOPIC DESCRIPTION Slides are reviewed. The specimen shows fragments of gastric mucosa with chronic inflammatory cell infiltrates in the lamina propria consisting of lymphocytes and plasma cells, consistent with mild chronic gastritis. GROSS DESCRIPTION Received in fixative is one container labeled with the patient's name and designated antrum biopsy. The specimen consists of two irregular fragments of light phan soft tissue that in aggregate measure 0.6 x 0.3 x 0.1 cm. The specimen is totally submitted in one cassette. / VAN:brenna 11/08/2022 TC:3 CPT: 16616
--- NOTE | 2022-11-07 14:00 | IMM_PTH ---
PATIENT: HAO STARKS LOC: [facility] U#:[id number] AGE/SX: 87/F ROOM: [facility] RE11/06/[address]: Dr. Rachel Winters MD : 1935 BED: 1 DIS: 11/09/2022 SPEC #: [id number] RECD: 11/08/22 10:21 STATUS: DORCAS REMayda #: [id number] SALVATORE: 11/07/22 14:[address]: Sami Salazar DEPT: IMMUNOHISTOCHEMISTRY RECD BY: Sabiha Cohen ENTERED: 11/08/22 10:22 SP TYPE: IMMUNO OTHR DR: MD Dr. Rachel Garnett MD Carolyn Graham, LINE DRIVER-C Tissues: Stomach, NOS Procedures: H Pylori (initial) PHYSICIAN & INSTITUTION [place] [address] SPECIMEN INFORMATION: Tissue Source: Antrum Clinical Info: GI bleed Specimen Number: [id number] CPT code: 77289 METHODOLOGY: Deparaffinized sections of prefer/formalin-fixed tissue or PAP/DQ stained slides are incubated with monoclonal/polyclonal antibodies/oligonucleotide probes. Localization is made via biotin free immunoperoxidase method. Appropriate controls are performed and reacted as expected. Results on target cell population are indicated in the following table: RESULTS: ANTIBODY / CLONE RESULT H Pylori (polyclonal) negative These tests were developed and their performance characteristics determined by [facility]. They may not have been cleared or approved by the U.S. Food and Drug Administration. The FDA has determined that such clearance or approval is not necessary. The above immunohistochemical/dualISH markers are ordered and reviewed by the Pathologist. INTERPRETATION: Antrum, biopsy: Negative for Helicobacter pylori organisms. VAN:brenna 11/12/2022
--- NOTE | 2022-11-07 14:06 | PN_ITS ---
Subjective Subjective Patient seen and examined. She had no active complaints. She was admitted with a complaint of weakness and blood in her stool. She had been on eliquis. On admission, her Hb is 5.7. She denies any rectal bleeding again or dark stools since admission. Review of systems is otherwise negative. Objective Data Objective Data Vital Signs: Vital Signs Temp Pulse Resp BP Pulse Ox O2 Del Method 98.7 F 74 14 136/80 H 96 Room Air 11/07/22 08:34 11/07/22 08:34 11/07/22 08:34 11/07/22 08:34 11/07/22 08:34 11/07/22 08:41 Oxygen Delivery Method Room Air Weight: 146 lb 13.246 oz Body Mass Index (BMI) 28.6 Intake & Output: Intake and Output for Last 24 Hours 11/05/22 11/06/22 11/07/22 23:59 23:59 23:59 Intake Total 2192.92 / 2192.92 510 / 510 Balance 2192.92 / 2192.92 510 / 510 Lab / Micro Data 11/07/22 05:52 11/07/22 05:52 Labs: Laboratory Results - last 24 hr 11/06/22 13:15: Differential Comment SCANNED, Diff Path Review May foll, Polychromasia 1+, Hypochromasia 1+, Anisocytosis 2+, Microcytosis 1+, Macrocytosis 1+, Ovalocytes RARE, Sodium 136, Potassium 4.1, Chloride 104, Carbon Dioxide 24.0, Anion Gap 8, BUN 33 H, Creatinine 1.51 H, Estim Creat Clear Calc 18.85, Est GFR (MDRD) Af Amer 42 L, Est GFR (MDRD) Non-Af 35 L, BUN/Creatinine Ratio 21.9 H, Glucose 169 H, Calcium 9.1, Blood Type A POSITIVE, Antibody Screen NEGATIVE, Crossmatch See Detail 11/06/22 13:45: Lactic Acid 2.5 H* 11/06/22 18:11: Lactic Acid 1.6 11/07/22 02:05: Hgb 8.2 L, Hct 26.3 L 11/07/22 05:52: WBC 7.9, RBC 3.40 L, Hgb 8.3 L, Hct 26.8 L, MCV 78.8 L, MCH 24.4 L, MCHC 31.0 L D, RDW Std Deviation 43.7, RDW Coeff of Nicci 15.3 H, Plt Count 220, MPV 9.5, Immature Gran % (Auto) 0.500, Neut % (Auto) 72.0 H, Lymph % (Auto) 15.0 L, Sierra % (Auto) 10.2 H, Eos % (Auto) 1.5, Baso % (Auto) 0.8, Absolute Neuts (auto) 5.7, Absolute Lymphs (auto) 1.19, Nucleated RBC % 2.9, Sodium 138, Potassium 3.6, Chloride 108 H, Carbon Dioxide 22.0, Anion Gap 8, BUN 28 H, Creatinine 1.37 H, Estim Creat Clear Calc 20.78, Est GFR (MDRD) Af Amer 47 L, Est GFR (MDRD) Non-Af 39 L, BUN/Creatinine Ratio 20.4 H, Glucose 114 H, Hemoglobin A1c 5.7 H, Calcium 9.1, Total Bilirubin 4.70 H, AST 14 L, ALT 17, Alkaline Phosphatase 61, Total Protein 6.5, Albumin 3.6, Globulin 2.9, Albumin/Globulin Ratio 1.2 Physical Exam Const alert, oriented x3 and no apparent distress General Appearance: cooperative HEENT normocephalic, head/scalp atraumatic, moist oral mucous membranes and oropharynx normal Eyes PERRL and EOMs intact bilaterally Neck no lymphadenopathy, supple and no JVD Lymph Lymphatic: no lymphadenopathy noted and no lymphedema noted Resp normal respiratory effort, normal air movement and clear to auscultation bilaterally Cardio regular rate, regular rhythm, S1 normal heart sound, S2 normal heart sound and no murmurs GI normal to inspection, nondistended, normoactive bowel sounds, soft to palpation, non-tender and non-distended Extremity normal capillary refill, no clubbing, cyanosis or edema and no calf tenderness General Extremity: no tenderness to palpation of joints or extremities Skin General Skin Exam: no breakdown and turgor normal Neuro CN's II-XII intact bilaterally, no focal motor deficits, no sensory deficits noted and deep tendon reflexes 2+ bilaterally Motor Exam: strength 5/5 throughout and general weakness Psych thought process normal and cooperative Appearance: appropriate Assessment & Plan Assessment/Plan (1) GI bleed: PLAN: Plan #Acute GI bleed due to acute blood loss anemia * was having rectal bleeding * Hb was 5.7 on admission * s/p transfusion of 2 units of pRBCs. Hb is 8.3. * on IV pantoprazole * currently NPO * hydrate gently with IVF. * #Roslyn on CKD 3: Cr is 1.51. Now down to 1.37. Will continue gentle hydration with IVF #Elevated bilirubin: total bilirubin is 4.7. may be due to anemia, though there is not evidence of hemolysis. AST/ALT nor ALP are not elevated. #Hyperglycemia * A1C is 5.7, so she doesnt meet the criteria for diabetes mellitus * follow up with PCP on outpatient basis * #Paroxysmal afib: yuval propranolol. Eliquis held due to GI bleed #Hypertension; on propranolol, lisinopril, amlodipine and lasix. hold lasix #Hypothyroidism; on synthroid #Essential tremors: on propranolol #Anxiety and depression; on sertraline VT prophylaxis: SCDs Charges/Coding Visit Charges Inpatient E&M: 22454 Subs Hosp L2
--- NOTE | 2022-11-07 14:23 | OP.CCLET_ITS ---
11/07/2022 Jenniffer Higgins Re : Upper GI endoscopy procedure for Jessy Ibarrar Favian This procedure was performed on October. My impressions and recommendations are as follows: Impressions : - Normal esophagus. - Small hiatal hernia. - Oozing gastric ulcer with pigmented material. Injected. - Oozing gastric ulcer with pigmented material. Treated with a heater probe. Biopsied. - Non-bleeding duodenal ulcer with no stigmata of bleeding. Recommendations : - Return patient to hospital more for ongoing care. - Advance diet as tolerated. - Continue present medications. - Await pathology results. - Repeat upper endoscopy in 3 months for surveillance. My findings are described in the full procedure note, which is enclosed. If I can be of further assistance, please feel free to contact me at . Sincerely, Sami Salazar, 11/07/2022 2:23:26 PM This report has been signed electronically.
--- NOTE | 2022-11-07 14:23 | OP.EGD_ITS ---
Patient Name: Jessy Grant Procedure Date: 11/07/2022 2:03 PM Date of : 1935 Age: 86 Procedure: Upper GI endoscopy Indications: Iron deficiency anemia, Melena Providers: Sami Salazar DO Medicines: Monitored Anesthesia Care Patient Profile: This is an 86 year old female. Refer to note in patient chart for documentation of history and physical. Patient has symptoms of acute dyspepsia and chronic nausea. Complications: No immediate complications. Procedure: Pre-Anesthesia Assessment: - Prior to the procedure, a History and Physical was performed, and patient medications and allergies were reviewed. The risks and benefits of the procedure and the sedation options and risks were discussed with the patient. All questions were answered and informed consent was obtained. Patient identification and proposed procedure were verified by the physician. Mental Status Examination: normal. Prophylactic Antibiotics: The patient does not require prophylactic antibiotics. Prior Anticoagulants: The patient has taken no anticoagulant or antiplatelet agents. ASA Grade Assessment: II - A patient with mild systemic disease. After reviewing the risks and benefits, the patient was deemed in satisfactory condition to undergo the procedure. The anesthesia plan was to use monitored anesthesia care (MAC). Immediately prior to administration of medications, the patient was re-assessed for adequacy to receive sedatives. The heart rate, respiratory rate, oxygen saturations, blood pressure, adequacy of pulmonary ventilation, and response to care were monitored throughout the procedure. The physical status of the patient was re-assessed after the procedure. After obtaining informed consent, the endoscope was passed under direct vision. Throughout the procedure, the patient's blood pressure, pulse, and oxygen saturations were monitored continuously. The gastroscope was introduced through the mouth, and advanced to the second part of duodenum. The upper GI endoscopy was accomplished without difficulty. The patient tolerated the procedure well. Scope In: 2:11:55 PM Scope Out: 2:14:34 PM Total Procedure Duration Time 0 hours 2 minutes 39 seconds Findings: The examined esophagus was normal. A small hiatal hernia was present. One oozing linear gastric ulcer with pigmented material was found in the prepyloric region of the stomach. The lesion was 4 mm in largest dimension. Area was successfully injected with 5 mL of a 0.1 mg/mL solution of epinephrine for drug delivery. Estimated blood loss was minimal. One oozing cratered gastric ulcer with pigmented material was found at the pylorus. The lesion was 6 mm in largest dimension. Coagulation for hemostasis using heater probe was successful. Biopsies were taken with a cold forceps for histology. Verification of patient identification for the specimen was done. Estimated blood loss was minimal. Biopsies were taken with a cold forceps for Helicobacter pylori testing. Verification of patient identification for the specimen was done. Estimated blood loss was minimal. One non-bleeding superficial duodenal ulcer with no stigmata of bleeding was found in the duodenal bulb. The lesion was 1 mm in largest dimension. Impression: - Normal esophagus. - Small hiatal hernia. - Oozing gastric ulcer with pigmented material. Injected. - Oozing gastric ulcer with pigmented material. Treated with a heater probe. Biopsied. - Non-bleeding duodenal ulcer with no stigmata of bleeding. Recommendation: - Return patient to hospital more for ongoing care. - Advance diet as tolerated. - Continue present medications. - Await pathology results. - Repeat upper endoscopy in 3 months for surveillance. Procedure Code(s): --- Professional --- 17798, 59, Esophagogastroduodenoscopy, flexible, transoral; with control of bleeding, any method 86344, Esophagogastroduodenoscopy, flexible, transoral; with biopsy, single or multiple 41922, 59,51, Esophagogastroduodenoscopy, flexible, transoral; with directed submucosal injection(s), any substance CPT copyright 2021 [employer]. All rights reserved. The codes documented in this report are preliminary and upon hims coder review may be revised to meet current compliance requirements. Sami Salazar DO 11/07/2022 2:23:26 PM This report has been signed electronically. Number of Addenda: 0 Note Initiated On: 11/07/2022 2:03 PM
[2022-11-07] MEDS: Menthol/Lanolin/Calamine/Znox 113 GM Tube 1 APPLIC TOPICAL ×2 (15:38→17:54)
[2022-11-07] MEDS: 0.9% Saline Lock 10 ML Syringe IV (15:38)
[2022-11-07] MEDS: 0.9% Normal Saline (1000mL) 1,000 ML 75 ML IV ×2 (15:42→17:54)
[2022-11-08] VITALS (11 sets, daily range): BP systolic 115–133; BP diastolic 58–91; PULSE 58–94; RESP 16–18; TEMP 36.6–37; O2SAT 92–95; BMI 29.0
[2022-11-08] MEDS: Levothyroxine 75 MCG Tablet PO (05:26)
[2022-11-08] MEDS: 0.9% Normal Saline (1000mL) 1,000 ML 75 ML IV ×2 (05:26→22:40)
[2022-11-08 06:18] LABS: Absolute Lymphocyte Count 1.06 X10^3/uL (0.83-4.51); Basophil# 0.06 X10^3/uL; Basophil% 0.9 % (0-1); Eosinophil# 0.12 X10^3/uL; Eosinophils% 1.7 % (0-5); Hematocrit 25.3 % (37-47); Hemoglobin 7.5 g/dL (12.0-15.0); Lymphocyte # 1.06 X10^3/ul (0.83-4.51); Lymphocyte % 15.2 % (19-41); Mean Corp Hgb Conc 29.6 g/dL (32-36); Mean Corpuscular Hgb 24.1 pg (27.0-32.0); Mean Corpuscular Volume 81.4 fL (81-99); Mean Platelet Vol. 9.6 fl (6.2-12.0); Monocyte# 0.75 X10^3/uL; Monocyte% 10.7 % (0-10); NRBC Flagged by Analyzer 1.1 % (0-5); Neutrophil # 4.96 X10^3/uL (2.7-7.7); Neutrophil % 70.9 % (47-70); Platelet Count 181 K/mm3 (150-450); RBC Distribution Width CV 15.7 % (11.6-14.6); RBC Distribution Width SD 45.9 fl (35.1-43.9); Red Blood Count 3.11 M/mm3 (4.2-5.4)
[2022-11-08 06:47] LABS: Anion Gap 5 (5-15); BUN 23 mg/dL (7-18); BUN/Creat Ratio 18.3 RATIO (10-20); Calcium,Total 8.7 mg/dL (8.5-10.1); Chloride 109 mmol/L (98-107); Creatinine, Serum 1.26 mg/dL (0.55-1.02); EST Glomerular Filtration Rate 43 mL/min (>60); Est Glom Filt Rate - Afr Amer 52 mL/min (>60); Estimated Creatinine Clearance 22.17 ml/min; Glucose 101 mg/dL (74-106); Potassium 3.3 mmol/L (3.5-5.1); Sodium Level 140 mmol/L (136-145)
[2022-11-08] MEDS: Lisinopril 20 MG Tablet PO ×2 (09:48→22:38)
[2022-11-08] MEDS: amLODIPine 5 MG Tablet PO (09:48)
[2022-11-08] MEDS: Propranolol LA 60 MG Capsule 120 MG PO (09:48)
[2022-11-08] MEDS: Pantoprazole Sodium 40 MG in 0.9% Normal Saline (100mL MB+) 100 ML 330 MG IV ×2 (09:49→22:42)
--- NOTE | 2022-11-08 13:53 | PN_ITS ---
Subjective Subjective Patient seen and examined. She has no complaints. He had an uneventful night. She did have EGD yesterday which showed oozing gastric ulcer which was injected and treated with a heater probe and a nonbleeding duodenal ulcer with no stigmata of bleeding. Hemoglobin has dropped from 8.3 and 7.5 today. She denies any dark stools or seeing blood in her stool. Review of systems otherwise negative. Objective Data Objective Data Vital Signs: Vital Signs Temp Pulse Resp BP Pulse Ox O2 Del Method 98.4 F 70 18 131/66 H 94 Room Air 11/08/22 08:42 11/08/22 08:42 11/08/22 08:42 11/08/22 08:42 11/08/22 08:42 11/08/22 08:42 Oxygen Delivery Method Room Air Weight: 148 lb 9.465 oz Body Mass Index (BMI) 29.0 Intake & Output: Intake and Output for Last 24 Hours 11/06/22 11/07/22 11/08/22 23:59 23:59 23:59 Intake Total 2192.92 / 2192.92 1085 / 1085 975 / 975 Balance 2192.92 / 2192.92 1085 / 1085 975 / 975 Lab / Micro Data 11/08/22 05:04 11/08/22 05:04 Labs: Laboratory Results - last 24 hr 11/08/22 05:04: WBC 7.0, RBC 3.11 L, Hgb 7.5 L, Hct 25.3 L, MCV 81.4, MCH 24.1 L , MCHC 29.6 L, RDW Std Deviation 45.9 H, RDW Coeff of Nicci 15.7 H, Plt Count 181, MPV 9.6, Immature Gran % (Auto) 0.600, Neut % (Auto) 70.9 H, Lymph % (Auto) 15.2 L, [place] % (Auto) 10.7 H, Eos % (Auto) 1.7, Baso % (Auto) 0.9, Absolute Neuts (auto) 5.0, Absolute Lymphs (auto) 1.06, Nucleated RBC % 1.1, Sodium 140, Potassium 3.3 L, Chloride 109 H, Carbon Dioxide 26.0, Anion Gap 5, BUN 23 H, Creatinine 1.26 H, Estim Creat Clear Calc 22.17, Est GFR (MDRD) Af Amer 52 L, Est GFR (MDRD) Non-Af 43 L, BUN/Creatinine Ratio 18.3, Glucose 101, Calcium 8.7 Physical Exam Const alert, oriented x3 and no apparent distress General Appearance: cooperative HEENT normocephalic, head/scalp atraumatic, moist oral mucous membranes and oropharynx normal Eyes PERRL and EOMs intact bilaterally Neck no lymphadenopathy, supple and no JVD Lymph Lymphatic: no lymphadenopathy noted and no lymphedema noted Resp normal respiratory effort, normal air movement and clear to auscultation bilater ally Cardio regular rate, regular rhythm, S1 normal heart sound, S2 normal heart sound and no murmurs GI normal to inspection, nondistended, normoactive bowel sounds, soft to palpation, non-tender and non-distended Extremity normal capillary refill, no clubbing, cyanosis or edema and no calf tenderness General Extremity: no tenderness to palpation of joints or extremities Skin General Skin Exam: no breakdown and turgor normal Neuro CN's II-XII intact bilaterally, no focal motor deficits, no sensory deficits noted and deep tendon reflexes 2+ bilaterally Motor Exam: strength 5/5 throughout and general weakness Psych thought process normal and cooperative Appearance: appropriate Assessment & Plan Assessment/Plan (1) GI bleed: PLAN: Plan #Acute GI bleed due to acute blood loss anemia * was having rectal bleeding * Hb was 5.7 on admission and came up to 8.3 with transfusion of 2 units of PRBCs. Hb today is down to 7.5 * had EGD yesterday which showed 2 bleeding gastric ulcers which were treated with heater probe and injected * will transfuse another unit of PRBC today * on IV PPI. Will continue * * #Roslyn on CKD 3:Cr is down to 1.21 today. baseline Cr is ~1.04 #Elevated bilirubin: total bilirubin is 4.7. may be due to anemia, though there is not evidence of hemolysis. AST/ALT nor ALP are not elevated. #Hyperglycemia * A1C is 5.7, so she doesnt meet the criteria for diabetes mellitus * follow up with PCP on outpatient basis * #Paroxysmal afib: on propranolol. Eliquis held due to GI bleed #Hypertension; on propranolol, lisinopril, amlodipine and lasix. lasix held on admission due to ROSLYN on CKD. Will resume #Hypothyroidism; on synthroid #Essential tremors: on propranolol #Anxiety and depression; on sertraline VT prophylaxis: SCDs Charges/Coding Visit Charges Inpatient E&M: 03948 Subs Hosp L2
[2022-11-08 14:35] LABS: AST(SGOT) 11 U/L (15-37); Alanine Aminotransfer ALT/SGPT 15 U/L (13-56); Albumin, Serum 2.9 g/dL (3.2-5.0); Alkaline Phosphatase 50 U/L (45-117); Bilirubin, Direct 0.56 mg/dL (0.00-0.30); Globulin 2.5 g/dL (2.2-4.2); Protein, Total 5.4 g/dL (6.4-8.2)
--- NOTE | 2022-11-08 18:02 | EX.PCM.PN.GI ---
Subjective Subjective Patient underwent upper endoscopy yesterday for possible acute blood loss anemia. Her hemoglobin is down to 7.5 today. Objective Data Objective Data Vital Signs: Vital Signs Temp Pulse Resp BP Pulse Ox O2 Del Method 98 F 70 18 133/59 H 93 Room Air 11/08/22 17:26 11/08/22 17:26 11/08/22 17:26 11/08/22 17:26 11/08/22 17:11/08/22 17:26 Oxygen Delivery Method Room Air Weight: 148 lb 9.465 oz Body Mass Index (BMI) 29.0 Intake & Output: Intake and Output for Last 24 Hours 11/06/22 11/07/22 11/08/22 23:59 23:59 23:59 Intake Total 2192.92 / 2192.92 1085 / 1085 1790 / 1790 Balance 2192.92 / 2192.92 1085 / 1085 1790 / 1790 Lab / Micro Data 11/08/22 05:04 11/08/22 05:04 Labs: Laboratory Results - last 24 hr 11/06/22 13:10: Crossmatch See Detail 11/06/22 13:15: Crossmatch See Detail 11/08/22 05:04: WBC 7.0, RBC 3.11 L, Hgb 7.5 L, Hct 25.3 L, MCV 81.4, MCH 24.1 L, MCHC 29.6 L, RDW Std Deviation 45.9 H, RDW Coeff of Nicci 15.7 H, Plt Count 181, MPV 9.6, Immature Gran % (Auto) 0.600, Neut % (Auto) 70.9 H, Lymph % (Auto) 15.2 L, [place] % (Auto) 10.7 H, Eos % (Auto) 1.7, Baso % (Auto) 0.9, Absolute Neuts (auto) 5.0, Absolute Lymphs (auto) 1.06, Nucleated RBC % 1.1, Sodium 140, Potassium 3.3 L, Chloride 109 H, Carbon Dioxide 26.0, Anion Gap 5, BUN 23 H, Creatinine 1.26 H, Estim Creat Clear Calc 22.17, Est GFR (MDRD) Af Amer 52 L, Est GFR (MDRD) Non-Af 43 L, BUN/Creatinine Ratio 18.3, Glucose 101, Calcium 8.7, Total Bilirubin 1.90 H, Direct Bilirubin 0.56 H, AST 11 L, ALT 15, Alkaline Phosphatase 50, Total Protein 5.4 L, Albumin 2.9 L, Globulin 2.5 Physical Exam Const alert, oriented x3 and no apparent distress General Appearance: cooperative HEENT normocephalic, head/scalp atraumatic, moist oral mucous membranes and oropharynx normal Eyes PERRL and EOMs intact bilaterally Neck no lymphadenopathy, supple and no JVD Lymph Lymphatic: no lymphadenopathy noted and no lymphedema noted Resp normal respiratory effort, normal air movement and clear to auscultation bilaterally Cardio regular rate, regular rhythm, S1 normal heart sound, S2 normal heart sound and no murmurs GI normal to inspection, nondistended, normoactive bowel sounds, soft to palpation, non-tender and non-distended Extremity normal capillary refill, no clubbing, cyanosis or edema and no calf tenderness General Extremity: no tenderness to palpation of joints or extremities Skin General Skin Exam: no breakdown and turgor normal Neuro CN's II-XII intact bilaterally, no focal motor deficits, no sensory deficits noted and deep tendon reflexes 2+ bilaterally Motor Exam: strength 5/5 throughout and general weakness Psych thought process normal and cooperative Appearance: appropriate Assessment & Plan Assessment/Plan (1) GI bleed: QUALIFIERS: GI bleed type/associated pathology: unspecified peptic ulcer Qualified Code(s): K27.4 - Chronic or unspecified peptic ulcer, site unspecified, with hemorrhage PLAN: She was discovered to have 2 bleeding gastric ulcers that were treated endoscopically yesterday. Suspecting that she has some equilibration in her blood count today. Recommend transfuse 1 unit packed red blood cells and to watch her clinically. If her hemoglobin continues to trend down then she will need a colonoscopy. Charges/Coding Visit Charges Inpatient E&M: 40908 Subs Hosp L2
[2022-11-08] MEDS: 0.9% Saline Lock 10 ML Syringe IV (22:38)
[2022-11-09 04:19] VITALS: BMI 29.0
[2022-11-09 04:38] VITALS: BP 133/80; PULSE 68; RESP 18; TEMP 36.6; O2SAT 93
[2022-11-09 04:59] LABS: Absolute Lymphocyte Count 1.14 X10^3/uL (0.83-4.51); Absolute Neutrophil Count 4.7 X10^3/uL (2.0-7.7); Basophil# 0.05 X10^3/uL; Basophil% 0.7 % (0-1); Eosinophil# 0.15 X10^3/uL; Eosinophils% 2.2 % (0-5); Hematocrit 27.5 % (37-47); Hemoglobin 8.4 g/dL (12.0-15.0); Lymphocyte # 1.14 X10^3/ul (0.83-4.51); Lymphocyte % 16.8 % (19-41); Mean Corp Hgb Conc 30.5 g/dL (32-36); Mean Corpuscular Hgb 24.7 pg (27.0-32.0); Mean Corpuscular Volume 80.9 fL (81-99); Mean Platelet Vol. 9.6 fl (6.2-12.0); Monocyte# 0.69 X10^3/uL; Monocyte% 10.2 % (0-10); NRBC Flagged by Analyzer 1.3 % (0-5); Neutrophil % 69.4 % (47-70); Platelet Count 167 K/mm3 (150-450); RBC Distribution Width CV 17.1 % (11.6-14.6); RBC Distribution Width SD 48.8 fl (35.1-43.9); White Blood Count 6.8 K/mm3 (4.4-11.0)
[2022-11-09 05:34] LABS: Anion Gap 5 (5-15); BUN 17 mg/dL (7-18); BUN/Creat Ratio 15.7 RATIO (10-20); Calcium,Total 8.4 mg/dL (8.5-10.1); Chloride 112 mmol/L (98-107); Creatinine, Serum 1.08 mg/dL (0.55-1.02); EST Glomerular Filtration Rate 51 mL/min (>60); Est Glom Filt Rate - Afr Amer 62 mL/min (>60); Estimated Creatinine Clearance 25.86 ml/min; Glucose 100 mg/dL (74-106); Potassium 3.4 mmol/L (3.5-5.1); Sodium Level 140 mmol/L (136-145)
[2022-11-09] MEDS: Levothyroxine 75 MCG Tablet PO (06:22)
[2022-11-09] MEDS: Acetaminophen 325 MG Tablet 650 MG PO (06:26)
[2022-11-09 10:30] VITALS: BP 121/61; PULSE 69; RESP 17; TEMP 36.9; O2SAT 95
[2022-11-09] MEDS: Pantoprazole Sodium 40 MG in 0.9% Normal Saline (100mL MB+) 100 ML 330 MG IV (10:34)
[2022-11-09] MEDS: Lisinopril 20 MG Tablet PO (10:35)
[2022-11-09] MEDS: amLODIPine 5 MG Tablet PO (10:35)
[2022-11-09] MEDS: Propranolol LA 60 MG Capsule 120 MG PO (10:36)
--- NOTE | 2022-11-09 12:52 | DS.PCM_ITS ---
Providers Date of Admission: 11/06/22 Date of Discharge: 11/09/22 Primary Care Physician: Nusrat Ballesteros, RICCI Consultations 11/06/22 15:34 Consult: Gastroenterology Routine Consulting Provider: Rebecca [facility] Reason for Consult: GI bleed, ABLA EMERGENT Consult: No MD Notified: Yes Date Notified: 11/06/22 Time Notified: 14:35 Method of Notification: ED Physician Initiated Reason For Visit: GI BLEED, ABLA Diagnosis Discharge Diagnosis (1) GI bleed: Status: Acute Code(s): K92.2 - Gastrointestinal hemorrhage, unspecified Qualifiers: GI bleed type/associated pathology: unspecified peptic ulcer Qualified Code(s): K27.4 - Chronic or unspecified peptic ulcer, site unspecified, with hemorrhage Plan #Acute GI bleed due to acute blood loss anemia * was having rectal bleeding * Hb was 5.7 on admission and came up to 8.3 with transfusion of 2 units of PRBCs. Hb today is down to 7.5 * had EGD yesterday which showed 2 bleeding gastric ulcers which were treated with heater probe and injected * will transfuse another unit of PRBC today * on IV PPI. Will continue * * #Jenny on CKD 3:Cr is down to 1.21 today. baseline Cr is ~1.04 #Elevated bilirubin: total bilirubin is 4.7. may be due to anemia, though there is not evidence of hemolysis. AST/ALT nor ALP are not elevated. #Hyperglycemia * A1C is 5.7, so she doesnt meet the criteria for diabetes mellitus * follow up with PCP on outpatient basis * #Paroxysmal afib: on propranolol. Eliquis held due to GI bleed #Hypertension; on propranolol, lisinopril, amlodipine and lasix. lasix held on admission due to JENNY on CKD. Will resume #Hypothyroidism; on synthroid #Essential tremors: on propranolol #Anxiety and depression; on sertraline VT prophylaxis: SCDs Medications at Discharge Home Medications Lactobacillus acidophilus 2 billion cell tablet 1 ea PO DAILY probiotic 02/26/13 acetaminophen 500 mg tablet (Tylenol Extra Strength) 500 mg PO Q6H PRN Pain 05/19/17 cranberry 400 mg capsule 400 mg PO DAILY bladd 04/13/18 Handicapped Placard #1 ea 01/12/19 cholecalciferol (vitamin D3) 50 mcg (2,000 unit) tablet 50 mcg PO DAILY supplement 04/19/19 propranolol 120 mg capsule,extended release 24 hr 120 mg PO QDAY #90 caps 10/24/21 furosemide 40 mg tablet 40 mg PO DAILY HTN 04/10/22 levothyroxine 75 mcg tablet 75 mcg PO DAILY hypothyroid 04/10/22 apixaban 5 mg tablet (Eliquis) 5 mg PO BID #180 tabs 04/12/22 sertraline 25 mg tablet 25 mg PO DAILY sleep 04/15/22 amlodipine 5 mg tablet 5 mg PO DAILY #90 tabs 04/16/22 alprazolam 0.25 mg tablet (Xanax) 0.125 mg PO QHS sleep 11/06/22 lisinopril 20 mg tablet 40 mg PO BID HTN 11/06/22 pantoprazole 40 mg tablet,delayed release 40 mg PO BID #60 tabs 11/09/22 Hospital Course Operations None Procedures EGD Summary of Care Provided Minutes Spent on Discharge: 55 Hospital Course: Patient is an 87-year-old female with an extensive past medical history as outlined including paroxysmal A-fib on Eliquis was admitted through the ED on 11/06/2022 with a complaint of seen blood intermittently in her stool. He had also become more weak and fatigued over the last week so she came into the ED. She denied any dark stools no abdominal pain. She also has shortness of breath with exertion but denied any lightheadedness or dizziness. Hemoglobin was 5.7 and platelets were 259. She was admitted and managed for acute anemia likely due to GI bleed and patient on Eliquis. She was kept n.p.o. and gastroenterology was consulted. She was transfused with 2 units of packed red blood cells and hemoglobin came up to above 8. She was started on IV pantoprazole. She had EGD which showed normal esophagus and small hiatal hernia as well as oozing gastric ulcer with pigmented material which was injected and treated with heater probe and biopsied as well and a nonbleeding duodenal ulcer with no stigmata of bleeding. She was placed on pantoprazole 40 mg twice daily. Her hemoglobin did trend downward to 7.5. She was therefore given another unit of packed red blood cells. Hemoglobin on day of discharge was 8.4. She felt much better and I discussed with gastroenterology who was okay with patient resuming her Eliquis. However her aspirin was discontinued. She was discharged on p.o. pantoprazole 40 mg twice daily. She is to follow-up with her primary care doctor and gastroenterology within 1 week and counseled that if she had rectal bleeding again she was to come straight to the ED or call her PCP. Patient seen and examined prior to discharge. She felt well and had no complai nts. She had an uneventful night. Review of systems otherwise negative. Labs and vitals reviewed. Home medication reviewed and reconciled. Physical Exam Const alert, oriented x3 and no apparent distress General Appearance: cooperative and comfortable HEENT normocephalic, head/scalp atraumatic, hearing grossly normal bilaterally, moist oral mucous membranes and oropharynx normal Mouth: oral and palatal mucosa normal Eyes PERRL, EOMs intact bilaterally and conjunctivae normal Neck no lymphadenopathy, supple and no JVD Lymph Lymphatic: no lymphadenopathy noted and no lymphedema noted Resp normal respiratory effort, normal air movement and clear to auscultation bilaterally Cardio regular rate, regular rhythm, S1 normal heart sound, S2 normal heart sound and no murmurs GI normal to inspection, nondistended, normoactive bowel sounds, soft to palpation, non-tender and non-distended Extremity normal to inspection, full ROM, normal capillary refill, no clubbing, cyanosis or edema and no calf tenderness General Extremity: no tenderness to palpation of joints or extremities Skin no rashes or lesions noted General Skin Exam: no breakdown and turgor normal Neuro oriented x3, CN's II-XII intact bilaterally, moves all extremities, no focal motor deficits, no sensory deficits noted and deep tendon reflexes 2+ bilaterally Sensorium / Orientation: awake and alert Motor Exam: strength 5/5 throughout and general weakness Psych thought process normal and cooperative Appearance: appropriate Weight / BMI Weight Weight: 149 lb 0.52 oz Body Mass Index (BMI) 29.0 ABG / Lab / Microbiology Data 11/09/22 04:26 11/09/22 04:26 Laboratory: Laboratory Results - last 24 hr 11/06/22 13:10: Crossmatch See Detail 11/06/22 13:15: Crossmatch See Detail 11/08/22 05:04: Total Bilirubin 1.90 H, Direct Bilirubin 0.56 H, AST 11 L, ALT 15, Alkaline Phosphatase 50, Total Protein 5.4 L, Albumin 2.9 L, Globulin 2.5 11/09/22 04:26: WBC 6.8, RBC 3.40 L, Hgb 8.4 L, Hct 27.5 L, MCV 80.9 L, MCH 24.7 L, MCHC 30.5 L, RDW Std Deviation 48.8 H, RDW Coeff of Nicci 17.1 H, Plt Count 167, MPV 9.6, Immature Gran % (Auto) 0.700, Neut % (Auto) 69.4, Lymph % (Auto) 16.8 L, Lyman % (Auto) 10.2 H, Eos % (Auto) 2.2, Baso % (Auto) 0.7, Absolute Neuts (auto) 4.7, Absolute Lymphs (auto) 1.14, Nucleated RBC % 1.3, Sodium 140, Potassium 3.4 L, Chloride 112 H, Carbon Dioxide 23.0, Anion Gap 5, BUN 17, Creatinine 1.08 H, Estim Creat Clear Calc 25.86, Est GFR (MDRD) Af Amer 62, Est GFR (MDRD) Non-Af 51 L, BUN/Creatinine Ratio 15.7, Glucose 100, Calcium 8.4 L D/C Instructions Discharge Diet: Low fat / Low cholesterol Discharge Activity: Return to Normal Activity Weight Bearing Status: Weight bearing as tolerated Call your doctor if you observe: Fever of 101 or Higher, Shortness of breath, Dizziness, Swelling in the ankles, Chest pain and - (rectal bleeding, dark stools or coffee ground emesis) Meaningful Use Info Meaningful Use Diagnoses (Choose all that apply): None applicable Discharge Plan Admission Admit Date/Time: 11/06/22 14:34 Primary Reason for Your Visit: GI bleed Attending Provider: Rachel Winters Primary Care Provider: Nusrat Ballesteros Consulting Providers: Michaela Narayan Instructions Patient Instructions: ED Upper GI Bleeding (Stable) Discharge Orders/Prescriptions Prescriptions: New pantoprazole 40 mg tablet,delayed release (DR/EC) 40 mg PO BID Qty: 60 2RF Continued acetaminophen [Tylenol Extra Strength] 500 mg tablet 500 mg PO Q6H PRN (Reason: Pain) cranberry 400 mg capsule 400 mg PO DAILY cholecalciferol (vitamin D3) 50 mcg (2,000 unit) tablet 50 mcg PO DAILY (DME) Handicapped Placard Qty: 1 0RF Rx Instructions: As directed; Good from 01/12/2019-01/13/2024 furosemide 40 mg tablet 40 mg PO DAILY Lactobacillus acidophilus 1 EACH tablet 1 ea PO DAILY levothyroxine 75 mcg tablet 75 mcg PO DAILY sertraline 25 mg tablet 25 mg PO DAILY Hold Instructions: MD Ordered Patient Comments: TAKE 1 TABLET BY MOUTH EVERY DAY alprazolam [Xanax] 0.25 mg tablet 0.125 mg PO QHS lisinopril 20 mg tablet 40 mg PO BID propranolol 120 mg capsule,extended release 24hr 120 mg PO QDAY Qty: 90 4RF Eliquis 5 mg tablet 5 mg PO BID Qty: 180 3RF amlodipine 5 mg tablet 5 mg PO DAILY Qty: 90 3RF Discontinued aspirin 81 MG tablet,chewable 81 mg PO DAILY@0800 Referrals / Follow Up: Sami Salazar DO [Med Staff - Active Staff] - Within 1 Week Nusrat Ballesteros NP-C [Primary Care Provider] - 11/12/22 11:30 am Disposition Disposition (needs filled in before D/C Order can be placed): Home Health Ser vice Charges/Coding Visit Charges Inpatient E&M: 60502 Disch Hosp >30min
--- NOTE | 2022-11-09 14:25 | PN.GI_ITS ---
Subjective Subjective Patient has not shown any more signs of GI bleeding Objective Data Objective Data Vital Signs: Vital Signs Temp Pulse Resp BP Pulse Ox O2 Del Method 98.4 F 69 17 121/61 H 95 Room Air 11/09/22 10:30 11/09/22 10:30 11/09/22 10:30 11/09/22 10:30 11/09/22 10:30 11/09/22 10:30 Oxygen Delivery Method Room Air Weight: 149 lb 0.52 oz Body Mass Index (BMI) 29.0 Intake & Output: Intake and Output for Last 24 Hours 11/07/22 11/08/22 11/09/22 23:59 23:59 23:59 Intake Total 1085 / 1085 2607.5 / 2607.5 1107.5 / 1107.5 Balance 1085 / 1085 2607.5 / 2607.5 1107.5 / 1107.5 Lab / Micro Data 11/09/22 04:26 11/09/22 04:26 Labs: Laboratory Results - last 24 hr 11/06/22 13:10: Crossmatch See Detail 11/06/22 13:15: Crossmatch See Detail 11/08/22 05:04: Total Bilirubin 1.90 H, Direct Bilirubin 0.56 H, AST 11 L, ALT 15, Alkaline Phosphatase 50, Total Protein 5.4 L, Albumin 2.9 L, Globulin 2.5 11/09/22 04:26: WBC 6.8, RBC 3.40 L, Hgb 8.4 L, Hct 27.5 L, MCV 80.9 L, MCH 24.7 L, MCHC 30.5 L, RDW Std Deviation 48.8 H, RDW Coeff of Nicci 17.1 H, Plt Count 167, MPV 9.6, Immature Gran % (Auto) 0.700, Neut % (Auto) 69.4, Lymph % (Auto) 16.8 L, Whiteside % (Auto) 10.2 H, Eos % (Auto) 2.2, Baso % (Auto) 0.7, Absolute Neuts (auto) 4.7, Absolute Lymphs (auto) 1.14, Nucleated RBC % 1.3, Sodium 140, Potassium 3.4 L, Chloride 112 H, Carbon Dioxide 23.0, Anion Gap 5, BUN 17, Creatinine 1.08 H, Estim Creat Clear Calc 25.86, Est GFR (MDRD) Af Amer 62, Est GFR (MDRD) Non-Af 51 L, BUN/Creatinine Ratio 15.7, Glucose 100, Calcium 8.4 L Physical Exam Const alert, oriented x3 and no apparent distress General Appearance: cooperative HEENT normocephalic, head/scalp atraumatic, moist oral mucous membranes and oropharynx normal Eyes PERRL and EOMs intact bilaterally Neck no lymphadenopathy, supple and no JVD Lymph Lymphatic: no lymphadenopathy noted and no lymphedema noted Resp normal respiratory effort, normal air movement and clear to auscultation bilaterally Cardio regular rate, regular rhythm, S1 normal heart sound, S2 normal heart sound and no murmurs GI normal to inspection, nondistended, normoactive bowel sounds, soft to palpation, non-tender and non-distended Extremity normal capillary refill, no clubbing, cyanosis or edema and no calf tenderness General Extremity: no tenderness to palpation of joints or extremities Skin General Skin Exam: no breakdown and turgor normal Neuro CN's II-XII intact bilaterally, no focal motor deficits, no sensory deficits noted and deep tendon reflexes 2+ bilaterally Motor Exam: strength 5/5 throughout and general weakness Psych thought process normal and cooperative Appearance: appropriate Assessment & Plan Assessment/Plan (1) GI bleed: QUALIFIERS: GI bleed type/associated pathology: unspecified peptic ulcer Qualified Code(s): K27.4 - Chronic or unspecified peptic ulcer, site unspecified, with hemorrhage PLAN: Plan #Acute GI bleed due to acute blood loss anemia * was having rectal bleeding * Hb was 5.7 on admission and came up to 8.3 with transfusion of 2 units of PRBCs. Hb today is down to 7.5 * had EGD yesterday which showed 2 bleeding gastric ulcers which were treated with heater probe and injected * She was transfused another unit of PRBC and her hemoglobin seems to be stable * She can have outpatient colonoscopy if needed and she is agreeable. Charges/Coding Visit Charges Inpatient E&M: 40900 Subs Hosp L2
[2022-11-11 08:38] LABS: Pathologist Review Reviewed
== END 2022-11-09 15:42 | disposition home health service (06) | DRG 378 ==
LOC: ED 14:38 → PCU 14:55
PROVIDERS: Internal Medicine Gastroenterology; Admitting Provider Family Medicine; Emergency Provider Emergency Medicine; PCP Nurse Practitioner Family; Visit Provider Student in an Organized Health Care Education/Training Program
PROC: 0DJ08ZZ Inspection of Upper Intestinal Tract, Via Natural or Artificial Opening Endoscopic (ICD-10-PCS; CPT 43235; principal; 2022-11-07 13:55)
DX: K25.4 Chronic or unspecified gastric ulcer with hemorrhage (principal); D62 Acute posthemorrhagic anemia; E87.20 Acidosis, unspecified; N17.9 Acute kidney failure, unspecified; I48.0 Paroxysmal atrial fibrillation; E03.9 Hypothyroidism, unspecified; G25.0 Essential tremor; N18.30 Chronic kidney disease, stage 3 unspecified; I12.9 Hypertensive chronic kidney disease with stage 1 through stage 4 chronic kidney disease, or unspecified chronic kidney disease; F32.A Depression, unspecified; G25.81 Restless legs syndrome; E78.00 Pure hypercholesterolemia, unspecified; K58.9 Irritable bowel syndrome, unspecified; M79.7 Fibromyalgia; K44.9 Diaphragmatic hernia without obstruction or gangrene; F41.9 Anxiety disorder, unspecified; E80.7 Disorder of bilirubin metabolism, unspecified; E55.9 Vitamin D deficiency, unspecified; K26.9 Duodenal ulcer, unspecified as acute or chronic, without hemorrhage or perforation; R73.9 Hyperglycemia, unspecified; Z79.82 Long term (current) use of aspirin; Z79.01 Long term (current) use of anticoagulants; Z79.890 Hormone replacement therapy; Z79.899 Other long term (current) drug therapy
CPT/HCPCS: 36415; 80048; 80053; 80061; 80076; 82306; 83036; 83605; 85014; 85018; 85025; 86644; 86850; 86900; 86901; 86920; 86922; 88305; 88342; 93005; 94668; 97110; 97116; 97162; 97166; 97530; 97802; 99285; J7030; J7120; P9016; P9040; A4216; J1940; J2405

== ENCOUNTER → 2022-11-06 | Outpatient (CLI) | payer MEDICARE, OTHER, SELFPAY ==
[2022-11-06 10:38] LABS: Absolute Lymphocyte Count 1.63 X10^3/uL (0.83-4.51); Absolute Neutrophil Count 4.7 X10^3/uL (2.0-7.7); Basophil# 0.07 X10^3/uL; Eosinophil# 0.21 X10^3/uL; Eosinophils% 2.9 % (0-5); Lymphocyte # 1.63 X10^3/ul (0.83-4.51); Lymphocyte % 22.5 % (19-41); Mean Corp Hgb Conc 28.5 g/dL (32-36); Mean Corpuscular Volume 80.6 fL (81-99); Mean Platelet Vol. 10.2 fl (6.2-12.0); Monocyte# 0.63 X10^3/uL; Monocyte% 8.7 % (0-10); NRBC Flagged by Analyzer 1.5 % (0-5); Neutrophil # 4.69 X10^3/uL (2.7-7.7); Neutrophil % 64.5 % (47-70); POSITIVE COUNT YES; Platelet Count 259 K/mm3 (150-450); RBC Distribution Width CV 15.4 % (11.6-14.6); RBC Distribution Width SD 45.6 fl (35.1-43.9); Red Blood Count 2.48 M/mm3 (4.2-5.4); White Blood Count 7.3 K/mm3 (4.4-11.0)
[2022-11-06 11:07] LABS: Differential Indicated SCAN CRITERIA MET; Hemoglobin 5.7 g/dL (12.0-15.0)
[2022-11-06 11:09] LABS: ALB/GLOB Ratio 1.1 RATIO (0.9-2.4); AST(SGOT) 13 U/L (15-37); Alanine Aminotransfer ALT/SGPT 16 U/L (13-56); Albumin, Serum 3.3 g/dL (3.2-5.0); Alkaline Phosphatase 56 U/L (45-117); Anion Gap 7 (5-15); BUN 31 mg/dL (7-18); BUN/Creat Ratio 19.7 RATIO (10-20); Calcium,Total 9.1 mg/dL (8.5-10.1); Chloride 105 mmol/L (98-107); Cholesterol 105 mg/dL (200); Creatinine, Serum 1.57 mg/dL (0.55-1.02); EST Glomerular Filtration Rate 33 mL/min (>60); Est Glom Filt Rate - Afr Amer 40 mL/min (>60); Globulin 2.9 g/dL (2.2-4.2); Glucose 161 mg/dL (74-106); High Density Lipoprotein 42 mg/dL; Protein, Total 6.2 g/dL (6.4-8.2); Sodium Level 135 mmol/L (136-145); Triglycerides 67 mg/dL; Very Low Density Lipoprotein 13 mg/dL (5-40)
[2022-11-06 11:46] LABS: Differential Comment SCANNED
[2022-11-06 11:47] LABS: Hypochromasia 2+; Polychromasia RARE
[2022-11-06 11:48] LABS: Ovalocyte RARE
[2022-11-06 12:28] LABS: Vitamin D,25 Hydroxy 68.7 ng/mL
[2022-11-11 08:38] LABS: Pathologist Review Reviewed
== END | disposition home or self-care (01) ==
PROVIDERS: PCP Nurse Practitioner Family; Referring Provider Nurse Practitioner Family; Visit Provider Nurse Practitioner Family
DX: I10 Essential (primary) hypertension (principal); E78.00 Pure hypercholesterolemia, unspecified; E55.9 Vitamin D deficiency, unspecified
CPT/HCPCS: 36415; 80053; 80061; 82306; 85025

== ENCOUNTER → 2022-11-11 | Outpatient (CLI) | payer MEDICARE, OTHER, SELFPAY ==
[2022-11-11 15:46] LABS: Absolute Lymphocyte Count 0.99 X10^3/uL (0.83-4.51); Absolute Neutrophil Count 5.2 X10^3/uL (2.0-7.7); Basophil# 0.05 X10^3/uL; Basophil% 0.7 % (0-1); Eosinophil# 0.17 X10^3/uL; Eosinophils% 2.4 % (0-5); Hematocrit 31.8 % (37-47); Hemoglobin 9.4 g/dL (12.0-15.0); Lymphocyte # 0.99 X10^3/ul (0.83-4.51); Lymphocyte % 14.1 % (19-41); Mean Corp Hgb Conc 29.6 g/dL (32-36); Mean Corpuscular Volume 81.3 fL (81-99); Mean Platelet Vol. 9.4 fl (6.2-12.0); Monocyte# 0.59 X10^3/uL; Monocyte% 8.4 % (0-10); NRBC Flagged by Analyzer 0.4 % (0-5); Neutrophil # 5.17 X10^3/uL (2.7-7.7); Platelet Count 228 K/mm3 (150-450); RBC Distribution Width CV 18.8 % (11.6-14.6); RBC Distribution Width SD 51.5 fl (35.1-43.9); Red Blood Count 3.91 M/mm3 (4.2-5.4)
== END | disposition home or self-care (01) ==
LOC: LABSPEC 15:26
PROVIDERS: PCP Nurse Practitioner Family; Visit Provider Nurse Practitioner Family
DX: D62 Acute posthemorrhagic anemia (principal)
CPT/HCPCS: 85025

== ENCOUNTER → 2022-11-20 | Outpatient (CLI) | payer MEDICARE, OTHER, SELFPAY ==
[2022-11-20 14:58] LABS: Absolute Lymphocyte Count 1.29 X10^3/uL (0.83-4.51); Basophil# 0.05 X10^3/uL; Eosinophil# 0.25 X10^3/uL; Eosinophils% 4.8 % (0-5); Hematocrit 33.8 % (37-47); Hemoglobin 9.9 g/dL (12.0-15.0); Lymphocyte # 1.29 X10^3/ul (0.83-4.51); Mean Corp Hgb Conc 29.3 g/dL (32-36); Mean Corpuscular Hgb 24.1 pg (27.0-32.0); Mean Corpuscular Volume 82.2 fL (81-99); Mean Platelet Vol. 9.3 fl (6.2-12.0); Monocyte# 0.58 X10^3/uL; Monocyte% 11.2 % (0-10); NRBC Flagged by Analyzer 0 % (0-5); Neutrophil # 2.97 X10^3/uL (2.7-7.7); Neutrophil % 57.6 % (47-70); POSITIVE MORPHOLOGY YES; Platelet Count 299 K/mm3 (150-450); RBC Distribution Width CV 18.8 % (11.6-14.6); RBC Distribution Width SD 55.1 fl (35.1-43.9); RET-HE 23.9 pg (30-35); Red Blood Count 4.11 M/mm3 (4.2-5.4); Reticulocyte Count 1.29 % (0.5-1.5); White Blood Count 5.2 K/mm3 (4.4-11.0)
[2022-11-20 14:59] LABS: Differential Indicated SCAN CRITERIA MET
[2022-11-20 16:04] LABS: Differential Comment SCANNED; Ferritin 12 ng/mL (8-252); Hypochromasia 2+; Iron 20 ug/dL (50-170); Iron Binding Capacity,Total 542 ug/dL (250-450)
[2022-11-20 16:05] LABS: Ovalocyte 1+; Schistocytes RARE; Target Cells RARE
== END | disposition home or self-care (01) ==
LOC: LAB 14:15
PROVIDERS: PCP Nurse Practitioner Family; Referring Provider Internal Medicine Gastroenterology; Visit Provider Internal Medicine Gastroenterology
DX: I42.8 Other cardiomyopathies (principal); D64.9 Anemia, unspecified
CPT/HCPCS: 36415; 82728; 83540; 83550; 85025; 85045

== ENCOUNTER 2023-01-13 08:34 | Day surgery (SDC) | payer MEDICARE, OTHER, SELFPAY ==
[2023-01-13 09:06] VITALS: BP 138/71; PULSE 65; RESP 16; TEMP 36.1; O2SAT 99; BMI 26.2
[2023-01-13] MEDS: Lactated Ringers 1,000 ML 15 ML IV (09:06)
--- NOTE | 2023-01-13 09:18 | HP.PCM_ITS ---
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 ? EGD 11.07.22 small hiatal hernia; prepyloric and pyloric oozing gastric ulcers, heater probe/epinephrine, gastritis; non-bleeding duodenal ulcer. H.Pylori neg. OV 11.20.22 feels that she is gaining strength and improving day-by-day. Reports pain under her right shoulder that is relieved with passage of flatulence and mild bloating that is improving with time. ROS Const Constitutional: No anorexia, fatigue, fever(s), weight change or sleep problems Eyes Eyes: No change in vision ENT ENT: No abnormal hearing, difficulty swallowing, mouth lesions, tongue swelling or throat swelling Resp Respiratory: No cough or shortness of breath Cardio Cardiology: No chest pain at rest, chest pain with exertion, shortness of breath or dyspnea on exertion Gastro GI: No difficulty swallowing Genitourinary-Female: No difficulty urinating or burning urination Musc Musculoskeletal: No joint pain, joint swelling, muscle weakness or decreased muscle mass Skin Skin: No hair loss in leg, yellowing of the eye, itchy eyes, rash, skin ulcer or skin swelling Neuro Neurology: No abnormal hearing, abnormal movements, confusion, unsteady gait/balance or memory loss Psych Psychiatric: No anxiety, No confusion and No memory loss Endo Endocrine: No fatigue or weight change Aller/Imm Allergy/Immunologic: No itchy eyes, throat swelling or tongue swelling Deonte/Lymp Hematologic/Lymphatic: No easy bleeding, easy bruising or enlarged lymph nodes Exam Const General: cooperative and comfortable Nutritional Appearance: average body habitus and well nourished [facility] Head: normal to inspection Ears: hearing grossly normal bilaterally Nose: external nose normal Face and sinus: normal facial exam Mouth: oral mucosae normal Throat: posterior oropharynx normal Eyes General: appearance normal, both eyes and all related structures Neck Neck: normal visual inspection Chest Chest palpation & inspection: normal inspection of the chest and normal palpation of entire chest wall Resp Effort & Inspection: normal respiratory effort Auscultation: Bilateral: Clear to Auscultation Cardio Palpation: normal PMI Rate: regular rate Rhythm: regular rhythm GI Inspection: normal to inspection Auscultation: normal bowel sounds Percussion: normal to percussion Palpation: no hepatosplenomegaly Skin General: no rashes or lesions noted Neuro General: patient alert Extrem General: normal to inspection Psych Affect: normal affect Quality Reporting Tobacco Screening ([facility] 138) Smoking Status: Never smoker Assessment and Plan Assessment and Plan (1) GI bleed: Status: Resolved Qualifiers: GI bleed type/associated pathology: unspecified peptic ulcer Qualified Code(s): K27.4 - Chronic or unspecified peptic ulcer, site unspecified, with hemorrhage Plan: GI bleed secondary to aspirin and Eliquis causing an ulcer in the gastric antrum status post endoscopic treatment. Patient is doing very well on PPI and Carafate therapy without any side effects such as constipation or diarrhea. We will check her hemoglobin and hematocrit along with her iron studies to see if she needs any supplemental iron. (2) Anemia: Status: Acute Qualifiers: Anemia type: iron deficiency Iron deficiency anemia type: other iron deficiency Qualified Code(s): D50.8 - Other iron deficiency anemias Orders: Orders CBC W/Diff, Automated Today D64.9 - Anemia, unspecified, I42.8 - Other cardiomyopathies Ferritin Today D64.9 - Anemia, unspecified, I42.8 - Other cardiomyopathies Iron Binding Capacity,Total Today D64.9 - Anemia, unspecified, I42.8 - Other cardiomyopathies Iron Today D64.9 - Anemia, unspecified, I42.8 - Other cardiomyopathies Retic Panel Count Today D64.9 - Anemia, unspecified I have examined the patient and the H&P has been reviewed. There are no clinical changes since date of exam.
[2023-01-13 09:36] LABS: Hematocrit 34.9 % (37-47); Hemoglobin 10.7 g/dL (12.0-15.0)
--- NOTE | 2023-01-13 10:09 | OP.EGD_ITS ---
Patient Name: Jessy Grant Procedure Date: 01/13/2023 9:51 AM Date of : 1935 Age: 87 Procedure: Upper GI endoscopy Indications: Iron deficiency anemia, Melena Providers: Sami Salazar DO Medicines: Monitored Anesthesia Care Patient Profile: This is an 87 year old female. Refer to note in patient chart for documentation of history and physical. Patient has symptoms of chronic dyspepsia. Complications: No immediate complications. Procedure: Pre-Anesthesia Assessment: - Prior to the procedure, a History and Physical was performed, and patient medications and allergies were reviewed. The patient is competent. The risks and benefits of the procedure and the sedation options and risks were discussed with the patient. All questions were answered and informed consent was obtained. Patient identification and proposed procedure were verified by the physician in the pre-procedure area. Mental Status Examination: alert and oriented. Airway Examination: normal oropharyngeal airway and neck mobility. Respiratory Examination: clear to auscultation. CV Examination: normal. Prophylactic Antibiotics: The patient does not require prophylactic antibiotics. Prior Anticoagulants: The patient has taken no anticoagulant or antiplatelet agents. ASA Grade Assessment: III - A patient with severe systemic disease. After reviewing the risks and benefits, the patient was deemed in satisfactory condition to undergo the procedure. The anesthesia plan was to use monitored anesthesia care (MAC). Immediately prior to administration of medications, the patient was re-assessed for adequacy to receive sedatives. The heart rate, respiratory rate, oxygen saturations, blood pressure, adequacy of pulmonary ventilation, and response to care were monitored throughout the procedure. The physical status of the patient was re-assessed after the procedure. After obtaining informed consent, the endoscope was passed under direct vision. Throughout the procedure, the patient's blood pressure, pulse, and oxygen saturations were monitored continuously. The gastroscope was introduced through the mouth, and advanced to the second part of duodenum. The upper GI endoscopy was accomplished without difficulty. The patient tolerated the procedure well. Scope In: 9:59:07 AM Scope Out: 10:02:50 AM Total Procedure Duration Time 0 hours 3 minutes 43 seconds Findings: The examined esophagus was normal. A hiatal hernia was present. No gross lesions were noted in the entire examined stomach. No gross lesions were noted in the second portion of the duodenum. Impression: - Normal esophagus. - Hiatal hernia. - No gross lesions in the entire stomach. - No gross lesions in the second portion of the duodenum. - No specimens collected. Recommendation: - Discharge patient to home. - Resume previous diet. - Continue present medications. Procedure Code(s): --- Professional --- 27925, Esophagogastroduodenoscopy, flexible, transoral; diagnostic, including collection of specimen(s) by brushing or washing, when performed (separate procedure) CPT copyright 2021 [employer]. All rights reserved. The codes documented in this report are preliminary and upon aquatics specialist review may be revised to meet current compliance requirements. Sami Salazar DO 01/13/2023 10:08:11 AM This report has been signed electronically. Number of Addenda: 0 Note Initiated On: 01/13/2023 9:51 AM
[2023-01-13 10:10] VITALS: BP 138/71; BP 91/47; PULSE 54; RESP 16; TEMP 36.9; O2SAT 94
[2023-01-13 10:15] VITALS: BP 138/71; BP 85/49; PULSE 54; RESP 16; O2SAT 95
[2023-01-13 10:19] VITALS: BP 100/58; BP 138/71; PULSE 59; RESP 16; O2SAT 95
[2023-01-13 10:24] VITALS: BP 107/55; BP 138/71; PULSE 59; RESP 16; TEMP 36.7; O2SAT 93
[2023-01-13 10:44] VITALS: BP 138/71
== END 2023-01-13 11:05 | disposition home or self-care (01) ==
LOC: EN 08:35 → AC 08:36
PROVIDERS: PCP Nurse Practitioner Family; Referring Provider Nurse Practitioner Family; Visit Provider Internal Medicine Gastroenterology
PROC: 0DJ08ZZ Inspection of Upper Intestinal Tract, Via Natural or Artificial Opening Endoscopic (ICD-10-PCS; CPT 43235; principal; 2023-01-13 09:40)
DX: K44.9 Diaphragmatic hernia without obstruction or gangrene (principal); I42.8 Other cardiomyopathies; I48.91 Unspecified atrial fibrillation; N18.30 Chronic kidney disease, stage 3 unspecified; D50.8 Other iron deficiency anemias; K27.4 Chronic or unspecified peptic ulcer, site unspecified, with hemorrhage; I12.9 Hypertensive chronic kidney disease with stage 1 through stage 4 chronic kidney disease, or unspecified chronic kidney disease; M79.7 Fibromyalgia; E78.5 Hyperlipidemia, unspecified; Z79.01 Long term (current) use of anticoagulants; Z79.899 Other long term (current) drug therapy; K21.9 Gastro-esophageal reflux disease without esophagitis; E03.9 Hypothyroidism, unspecified; Z79.890 Hormone replacement therapy; Z90.49 Acquired absence of other specified parts of digestive tract
CPT/HCPCS: 43235; 85014; 85018; J7120; J2405

== ENCOUNTER → 2023-01-21 | Outpatient (CLI) | payer MEDICARE, OTHER, SELFPAY ==
--- NOTE | 2023-01-21 12:52 | ECHOD_ITS ---
Reason For Study: Cardiomyopathy Procedure This was a 2D Doppler, Color Flow transthoracic echocardiogram. The study was technically difficult. Exam performed in department. Left Ventricle Normal LV size. Mild concentric left ventricular hypertrophy. Left ventricular systolic function is normal. The estimated ejection fraction is 55 %. No regional wall motion abnormalities noted. Right Ventricle Normal RV size. Normal systolic function. Atria The left atrium is severely enlarged. There is severe biatrial dilatation. The right atrium is severely enlarged. Mitral Valve Moderate mitral annular calcification extending into the posterior leaflet. Tricuspid Valve Normal tricuspid valve. Mild to moderate (1-2+) tricuspid valve insufficiency. Pulmonary artery systolic pressure is 50 mmHg. Aortic Valve Trisinus/trileaflet aortic valve. Mild (1+) aortic valve insufficiency. Pulmonic Valve The pulmonic valve is not well visualized. Great Vessels Normal aortic root. The pulmonary artery is normal size. Inferior vena cava collapse with respiration. Pericardium/Pleural Small pericardial effusion. MMode/2D Measurements & Calculations LVIDd: 4.2 cm IVSd: 1.2 cm Ao root diam: 3.3 cm LVIDs: 3.3 cm LVPWd: 1.3 cm LA dimension: 5.8 cm RVDd: 4.2 cm FS: 22.8 % LAV(MOD-bp): 144.6 ml LA A4 area: 37.2 cm2 RA A4 area: 45.4 cm2 LAV(MOD-bp) Indexed: 85.2 ml/m2 LAV(MOD-sp2): 133.4 ml LAV(MOD-sp4): 148.3 ml TAPSE: 1.5 cm Time Measurements MV dec time: 0.18 sec Doppler Measurements & Calculations MV E max dano: 124.7 cm/sec Lat Peak E' Dano: 11.7 cm/sec Med Peak E' Dano: 7.8 cm/sec MV A max dano: 22.3 cm/sec E/E' lat: 10.7 E/E' med: 16.0 MV E/A: 5.6 MV V2 max: 153.0 cm/sec MV P1/2t max dano: 154.1 cm/sec Ao V2 max: 150.0 cm/sec MV max P.4 mmHg MV P1/2t: 68.0 msec Ao max P.0 mmHg MV V2 mean: 63.6 cm/sec Ao V2 mean: 103.7 cm/sec MV mean P.3 mmHg MV dec slope: 663.5 cm/sec2 Ao mean P.0 mmHg MV V2 VTI: 36.6 cm MVA(P1/2t): 3.2 cm2 Ao V2 VTI: 33.8 cm AV (velocity ratio): 0.67 AI max dano: 329.0 cm/sec LV V1 max: 105.3 cm/sec MR max dano: 473.1 cm/sec AI max P.3 mmHg LV V1 max P.4 mmHg MR max P.5 mmHg LV V1 mean P.6 mmHg AI dec slope: 106.2 cm/sec2 LV V1 mean: 76.6 cm/sec AI P1/2t: 907.4 msec LV V1 VTI: 22.6 cm PA V2 max: 90.5 cm/sec TR max dano: 340.3 cm/sec PA V2 mean: 60.8 cm/sec TR max P.3 mmHg ECHO/Echo Complete Interpretation Summary Normal LV size. Left ventricular systolic function is normal. The estimated ejection fraction is 55 %. Pulmonary artery systolic pressure is 50 mmHg. The left atrium is severely enlarged. The right atrium is severely enlarged. Ordering Physician: Angélica Meyers Referring Physician: Angélica Meyers Performed By: Tomy Luu RCS
== END | disposition home or self-care (01) ==
LOC: CVS 12:50
PROVIDERS: PCP Nurse Practitioner Family; Referring Provider Physician Assistant Medical; Visit Provider Physician Assistant Medical
DX: R01.1 Cardiac murmur, unspecified (principal); I42.8 Other cardiomyopathies
CPT/HCPCS: 93306

== ENCOUNTER → 2023-02-27 | Outpatient (CLI) | payer MEDICARE, OTHER, SELFPAY ==
[2023-02-27 15:33] LABS: Absolute Lymphocyte Count 0.99 X10^3/uL (0.83-4.51); Absolute Neutrophil Count 3.3 X10^3/uL (2.0-7.7); Basophil# 0.03 X10^3/uL; Basophil% 0.6 % (0-1); Eosinophil# 0.26 X10^3/uL; Eosinophils% 5.3 % (0-5); Hematocrit 38.2 % (37-47); Hemoglobin 11.7 g/dL (12.0-15.0); Lymphocyte # 0.99 X10^3/ul (0.83-4.51); Lymphocyte % 20.2 % (19-41); Mean Corp Hgb Conc 30.6 g/dL (32-36); Mean Corpuscular Hgb 27.9 pg (27.0-32.0); Mean Platelet Vol. 9.7 fl (6.2-12.0); Monocyte# 0.37 X10^3/uL; Monocyte% 7.5 % (0-10); NRBC Flagged by Analyzer 0 % (0-5); Neutrophil # 3.26 X10^3/uL (2.7-7.7); Neutrophil % 66.4 % (47-70); Platelet Count 256 K/mm3 (150-450); RBC Distribution Width CV 18.4 % (11.6-14.6); RBC Distribution Width SD 62.3 fl (35.1-43.9); RET-HE 31.5 pg (30-35); Reticulocyte Count 1.23 % (0.5-1.5); White Blood Count 4.9 K/mm3 (4.4-11.0)
[2023-02-27 15:55] LABS: ALB/GLOB Ratio 1.1 RATIO (0.9-2.4); AST(SGOT) 22 U/L (15-37); Alanine Aminotransfer ALT/SGPT 21 U/L (13-56); Albumin, Serum 3.7 g/dL (3.2-5.0); Alkaline Phosphatase 102 U/L (45-117); Anion Gap 5 (5-15); BUN 27 mg/dL (7-18); BUN/Creat Ratio 23.7 RATIO (10-20); Calcium,Total 9.2 mg/dL (8.5-10.1); Chloride 104 mmol/L (98-107); Creatinine, Serum 1.14 mg/dL (0.55-1.02); EST Glomerular Filtration Rate 48 mL/min (>60); Est Glom Filt Rate - Afr Amer 58 mL/min (>60); Ferritin 32 ng/mL (8-252); Free T3 1.6 pg/mL (2.18-3.98); Globulin 3.5 g/dL (2.2-4.2); Glucose 114 mg/dL (74-106); Iron 56 ug/dL (50-170); Iron Binding Capacity,Total 406 ug/dL (250-450); PERCENT IRON SATURATION 13.8 % (15.0-55.0); Potassium 4.1 mmol/L (3.5-5.1); Protein, Total 7.2 g/dL (6.4-8.2); Sodium Level 138 mmol/L (136-145); T4 Free Direct 1.35 ng/dL (0.76-1.46); Thyroid Stim Hormone (TSH) 4.08 uIU/mL (0.358-3.74)
[2023-02-27 16:39] LABS: Vitamin B12 344 pg/mL (211-911)
== END | disposition home or self-care (01) ==
PROVIDERS: PCP Nurse Practitioner Family; Referring Provider Internal Medicine Hematology & Oncology; Visit Provider Internal Medicine Hematology & Oncology
DX: E03.9 Hypothyroidism, unspecified (principal); D50.0 Iron deficiency anemia secondary to blood loss (chronic)
CPT/HCPCS: 36415; 80053; 82607; 82728; 83540; 83550; 84439; 84443; 84481; 85025; 85045

== ENCOUNTER → 2023-08-07 | Outpatient (CLI) | payer MEDICARE, OTHER, SELFPAY ==
[2023-08-07 15:24] LABS: Absolute Lymphocyte Count 1.16 X10^3/uL (0.83-4.51); Absolute Neutrophil Count 4.2 X10^3/uL (2.0-7.7); Basophil# 0.04 X10^3/uL; Basophil% 0.7 % (0-1); Eosinophil# 0.14 X10^3/uL; Eosinophils% 2.4 % (0-5); Hematocrit 41.9 % (37-47); Hemoglobin 13.2 g/dL (12.0-15.0); Lymphocyte # 1.16 X10^3/ul (0.83-4.51); Lymphocyte % 19.6 % (19-41); Mean Corp Hgb Conc 31.5 g/dL (32-36); Mean Corpuscular Hgb 29.8 pg (27.0-32.0); Mean Corpuscular Volume 94.6 fL (81-99); Mean Platelet Vol. 9.9 fl (6.2-12.0); Monocyte# 0.42 X10^3/uL; Monocyte% 7.1 % (0-10); NRBC Flagged by Analyzer 0 % (0-5); Neutrophil # 4.15 X10^3/uL (2.7-7.7); Neutrophil % 69.9 % (47-70); Platelet Count 247 K/mm3 (150-450); RBC Distribution Width CV 13.1 % (11.6-14.6); RBC Distribution Width SD 45.1 fl (35.1-43.9); RET-HE 33.8 pg (30-35); Red Blood Count 4.43 M/mm3 (4.2-5.4); Reticulocyte Count 1.16 % (0.5-1.5); White Blood Count 5.9 K/mm3 (4.4-11.0)
[2023-08-07 15:47] LABS: Ferritin 58 ng/mL (8-252); Iron 121 ug/dL (50-170); Iron Binding Capacity,Total 384 ug/dL (250-450); PERCENT IRON SATURATION 31.5 % (15.0-55.0)
[2023-08-07 15:50] LABS: Vitamin B12 393 pg/mL (211-911)
[2023-08-07 15:52] LABS: Thyroid Stim Hormone (TSH) 4.09 uIU/mL (0.358-3.74)
== END | disposition home or self-care (01) ==
LOC: BIMLAB 13:46
PROVIDERS: Internal Medicine Hematology & Oncology; PCP Internal Medicine; Referring Provider Internal Medicine; Visit Provider Internal Medicine
DX: D64.9 Anemia, unspecified (principal); E03.9 Hypothyroidism, unspecified
CPT/HCPCS: 36415; 82607; 82728; 83540; 83550; 84443; 85025; 85045

== ENCOUNTER 2023-09-08 13:30 | Outpatient (RCR) | payer MEDICARE, OTHER, SELFPAY ==
--- NOTE | 2023-08-25 13:00 | HP.PTEVAL ---
Patient's Visit Information Visit Information Visit Information: HAO STARKS is a 87 year old F referred to Physical Therapy by Dr. Ariela Russell MD with a diagnosis of degenerative arthritis, chronic neck and back pain. Date of Evaluation: 08/18/23 Physical Therapist: Felipe Cheng DPT Visit Plan Frequency: 2x /Week Duration: 6 Weeks Plan: Start with US to cervical spine, light manual in same region, B UT and cervical erector spinea. Add in UB postural strengthening and light cervical isometrics. Subjective Subjective: Pt. is here today for her initial evaluation with diagnosis of degenerative arthritis, chronic neck and back pain. Pt. reports that her biggest issues is with her neck. Pt. repots that her neck seems to give her the most pain. pt. denies N/T in either UE. No marked myotomal weakness noted. She has increased pain in her back and neck with walking and standing. She is limited with her daily chores as well secondary to pain. Pt. reports no falls recently. Pt. reports overall decreasing her activities due to her neck and back pain. Pt. does not use an AD at home, but will use furniture. I talked with her about safety and use of AD. Pt. came with son this date. Pain Cervical spine: Pain Intensity (Out of 10): 4 Pain Intensity Range: 2 and 7 Objective Objective: POSTURE: Pt. has fwrd head posture. Pt. has increased thoracic kyphosis as well. Difficult for patient to correct. PALPATION: Pt. has tenderness throughout cervical erector spinae and levator scapulae as well. NEURO: normal throughout. ROM: cervical spine: Flexion: min loss mild increase NW, ext mod loss increase NW, BS mod loss increase NW bilat, rotation mod loss bilat increase NW, LUMBAR SPINE: flexion nil loss NE, ext mod loss increase NW, SB min loss bilat NE, rotation mod loss gris increase NW. MMT: Pt. has decent strength throughout BLEs, core strength: poor. BUE's 4/5 throughout, but 4/5 cervical iso testing. Special Tests C/S Radiculapathy - Left Upper limb tension test: Negative C/S Radiculapathy - Right Upper limb tension test: Negative C/S Radiculapathy - Left Spurlings: Negative C/S Radiculapathy - Right Spurlings: Negative C/S Radiculapathy - Left Cervical distraction: Negative C/S Radiculapathy - Right Cervical distraction: Negative L/S Slump test left side: Negative L/S Slump test right side: Negative L/S Left Straight Leg Raise: Negative L/S Right Straight Leg Raise: Negative Balance/Special Test Scores Oswestry Low Back Score: 25 Goals Goal 1:: LTG: Pt. to be I with HEP for postural strengthening. Goal Time Frame: 4-6 Weeks Goal 2:: STG: Pt. to be able to sit without increase in her neck and thoracic spine pain. Goal Time Frame: 2-4 Weeks Goal 3:: LTG: Pt. to have increased cervical ROM by 25% throughout. Goal Time Frame: 4-6 Weeks Goal 4:: LTG: Pt. to have improved back oswestry by 25%. Goal Time Frame: 4-6 Weeks Rehabilitation Potential Physical Therapy Diagnosis: Pt. has signs and symptoms consistent with degenerative arthritis, chronic neck and back pain. Pt. has marked hypomobility and weakness of her shoulder girdle and postural strength. Pt. would benefit from PT to decrease her symptoms of her cervical spine and increase some postural strength Rehabilitation Potential: Good Anticipated Interventions Patient/Client Instruction: Educate patient on: Condition, Plan of Care, Risk Factors and Benefits of Fitness Program For the Purpose of:: To facilitate caregiver knowledge, To improve self management, To prevent re-injury, To improve ability to perform tasks related to life management and To improve tolerance to ADL's Therapeutic Exercise to Include: Strength training, Power training, Postural training, Flexibilty training, Passive ROM, Active ROM, Dynamic Lumbar Stabilization, [place] Exercises and Scapular Strength/Stabilization For the Purpose of:: To decrease pain, To decrease swelling/inflammation, To increase ROM, To improve nutrient delivery to tissue, To increase oxygenation perfusion, To improve muscle performance and motor function, To improve ability to perform ADL's, To increase tolerance to activity/condition/position and To improve performance and independence with ADL's Manual Therapy Techniques to Include: Manipulation and Soft tissue mobilization For the Purpose of:: To decrease pain, To decrease swelling/inflammation, To increase ROM, To improve nutrient delivery to tissue and To increase oxygenation perfusion Ultrasound (thermal/non thermal): Yes For the Purpose of:: To decrease pain, To decrease swelling/inflammation, To increase ROM, To improve health of tissue, To decrease soft tissue restriction and To increase flexibility/ROM Text: Thank you for the opportunity to evaluate your patient. For Medicare and Medicare HMO plans, please review the plan of care and approve it. It will need to be FAXED BACK to us at [phone] for Medicare purposes. For Medicare only, by signing this I certify the plan of care. Please let me know if there are questions or concerns regarding this plan of care. Physician Signature: Date:
== END 2023-09-08 19:00 | disposition home or self-care (01) ==
LOC: PT 13:30
PROVIDERS: PCP Internal Medicine; Referring Provider Internal Medicine; Visit Provider Internal Medicine
DX: M19.90 Unspecified osteoarthritis, unspecified site (principal); M54.2 Cervicalgia; G89.29 Other chronic pain
CPT/HCPCS: 97035; 97110; 97140; 97161

== ENCOUNTER → 2023-12-17 | Outpatient (CLI) | payer MEDICARE, OTHER, SELFPAY ==
--- NOTE | 2023-12-17 11:35 | RAD_ITS ---
INDICATION: BACK PAIN EXAMINATION/TECHNIQUE: X-RAY - XR Spine Lumbar 2 or 3 Views COMPARISON: None. FINDINGS: VERTEBRAE: No fracture or subluxation. Severe degenerative changes. Roundup right curvature of the lumbar spine. No erosive changes. SOFT TISSUES: Unremarkable. INCLUDED ABDOMEN: Visualized abdomen is unremarkable. RAD/Lumbar Spine 2 or 3 Views IMPRESSION: Severe degenerative changes with no evidence of an acute abnormality. Electronically Signed: Emmett Pierce DO at 0:19 EDT ,
== END | disposition home or self-care (01) ==
LOC: MTRAD 11:33
PROVIDERS: PCP Internal Medicine; Referring Provider Anesthesiology Pain Medicine; Visit Provider Anesthesiology Pain Medicine
DX: M47.816 Spondylosis without myelopathy or radiculopathy, lumbar region (principal)
CPT/HCPCS: 72100

== ENCOUNTER → 2024-07-15 | Outpatient (CLI) | payer MEDICARE, OTHER, SELFPAY ==
[2024-07-15 10:36] LABS: Absolute Lymphocyte Count 1.25 X10^3/uL (0.83-4.51); Absolute Neutrophil Count 4.3 X10^3/uL (2.0-7.7); Basophil# 0.06 X10^3/uL; Eosinophil# 0.23 X10^3/uL; Eosinophils% 3.7 % (0-5); Hematocrit 40.1 % (37-47); Hemoglobin 12.9 g/dL (12.0-15.0); Lymphocyte # 1.25 X10^3/ul (0.83-4.51); Lymphocyte % 19.8 % (19-41); Mean Corp Hgb Conc 32.2 g/dL (32-36); Mean Corpuscular Hgb 30.1 pg (27.0-32.0); Mean Corpuscular Volume 93.5 fL (81-99); Mean Platelet Vol. 9.6 fl (6.2-12.0); Monocyte# 0.45 X10^3/uL; Monocyte% 7.1 % (0-10); NRBC Flagged by Analyzer 0 % (0-5); Neutrophil # 4.29 X10^3/uL (2.7-7.7); Neutrophil % 68.1 % (47-70); Platelet Count 245 K/mm3 (150-450); RBC Distribution Width CV 13.3 % (11.6-14.6); RBC Distribution Width SD 45.5 fl (35.1-43.9); Red Blood Count 4.29 M/mm3 (4.2-5.4); White Blood Count 6.3 K/mm3 (4.4-11.0)
[2024-07-15 11:17] LABS: Ferritin 65 ng/mL (22-378); Vitamin B12 462 pg/mL (180-914)
[2024-07-15 12:19] LABS: Iron 90 ug/dL (50-170); Iron Binding Capacity,Total 359 ug/dL (250-450); Iron Binding Capacity,Unsat 269 ug/dL (228-428)
== END | disposition home or self-care (01) ==
LOC: MTLAB 08:51
PROVIDERS: PCP Internal Medicine; Referring Provider Internal Medicine; Visit Provider Internal Medicine
DX: D50.9 Iron deficiency anemia, unspecified (principal); E53.8 Deficiency of other specified B group vitamins
CPT/HCPCS: 36415; 82607; 82728; 83540; 83550; 85025

== ENCOUNTER → 2024-10-26 | Outpatient (CLI) | payer MEDICARE, OTHER, SELFPAY ==
[2024-10-26 13:19] LABS: Hematocrit 37.0 % (37-47); Hemoglobin 12.0 g/dL (12.0-15.0); Immature Granulocytes Count 0.010 X10^3/uL (0.0-0.0); Immature Reticulocyte Fraction 9.40 % (3.00-15.90); Mean Corp Hgb Conc 32.4 g/dL (32-36); Mean Corpuscular Volume 93.7 fL (81-99); Mean Platelet Vol. 10.3 fl (6.2-12.0); NRBC Flagged by Analyzer 0 % (0-5); Platelet Count 209 K/mm3 (150-450); RBC Distribution Width CV 13.5 % (11.6-14.6); RBC Distribution Width SD 46.7 fl (35.1-43.9); Red Blood Count 3.95 M/mm3 (4.2-5.4); Reticulocyte Count 1.17 % (0.5-1.5); White Blood Count 4.8 K/mm3 (4.4-11.0)
[2024-10-26 13:53] LABS: AST(SGOT) 19 U/L (<=31); Alanine Aminotransfer ALT/SGPT 10 U/L (<=34); Albumin, Serum 4.3 g/dL (3.4-4.8); Alkaline Phosphatase 74 U/L (35-104); Anion Gap 11 (5-15); BUN 23 mg/dL (4-19); BUN/Creat Ratio 22.1 RATIO (10-20); Calcium,Total 9.8 mg/dL (7.6-11.0); Carbon Dioxide 25.7 mmol/L (21.0-32.0); Chloride 103 mmol/L (98-108); Ferritin 74 ng/mL (22-378); Globulin 2.5 g/dL (2.2-4.2); Glucose 99 mg/dL (70-99); Iron 78 ug/dL (50-170); Iron Binding Capacity,Total 325 ug/dL (250-450); Iron Binding Capacity,Unsat 247 ug/dL (228-428); Potassium 4.4 mmol/L (3.3-5.1); Vitamin B12 425 pg/mL (180-914)
== END | disposition home or self-care (01) ==
LOC: MTLAB 09:34
PROVIDERS: Internal Medicine Hematology & Oncology; PCP Internal Medicine; Referring Provider Internal Medicine; Visit Provider Internal Medicine
DX: D50.9 Iron deficiency anemia, unspecified (principal); E03.9 Hypothyroidism, unspecified; I11.9 Hypertensive heart disease without heart failure
CPT/HCPCS: 36415; 80053; 82607; 82728; 83540; 83550; 84443; 85025; 85045